=== PATIENT | female | born 1960 | race Caucasian/White ===

== ENCOUNTER 2019-04-28 07:19 | Outpatient (CLI) | payer MEDICAID, SELFPAY ==
--- NOTE | 2019-04-28 07:31 | MM_ITS ---
WS: [id number] BILATERAL DIGITAL SCREENING MAMMOGRAPHY WITH CAD CLINICAL INFORMATION: SCREENING HISTORY: Screening mammogram. No current complaints. COMPARISON: TECHNIQUE: Bilateral CC and MLO views. FINDINGS: The breasts are composed of heterogeneous fibroglandular density tissue, which can limit the detectio n of small underlying mass lesions. Palpable marker upper outer left breast. No mammographic abnormal ities in this area. LEFT DIAGNOSTIC MAMMOGRAPHY AND ULTRASOUND REQUIRED OF THE PALPABLE LUMP. Unremarkable right breast. MM/[place] [id number] IMPRESSION: BI-RADS: 0-Incomplete: Need additional imaging evaluation FOLLOW UP: Need Additional Imaging
== END 2019-04-28 07:20 | disposition home or self-care (01) ==
LOC: RADSHAW 07:23
PROVIDERS: Family Provider Internal Medicine; PCP Internal Medicine; Visit Provider Internal Medicine
DX: Z12.31 Encounter for screening mammogram for malignant neoplasm of breast (principal)
CPT/HCPCS: 77067

== ENCOUNTER 2019-05-05 12:25 | Emergency (ER) | payer MEDICAID, SELFPAY ==
[2019-05-05 12:27] VITALS: BP 139/83; PULSE 85; RESP 18; TEMP 36.7; O2SAT 98; BMI 32.6
--- NOTE | 2019-05-05 12:50 | PC.NURSE ---
Patient complaining of lower back, fuzzy headed, cough, shortness of breath, nausea, vomiting, and weakness. Patient has tenders to the left side of her abdomen.
--- NOTE | 2019-05-05 13:14 | CT_ITS ---
WS: [id number] CT HEAD NONCONTRAST HISTORY: headache, ams TECHNIQUE: Contiguous axial imaging performed through the brain in 2.5 mm imaging. Bone and soft tiss ue windows. Sagittal and coronal reformats reviewed. All CT scans at [facility] use at ast one of these dose optimization techniques: automated exposure control; mA and/or kV adjustment pe r patient size (includes targeted exams where dose is matched to clinical indication); or iterative r econstruction. DLP: 745.35 mGy.cm COMPARISON: 11/14/2016 No acute intracranial hemorrhage, midline shift or mass effect. Very mild atrophy and mild chronic ischemic disease. Remote lacunar infarct external capsule on the R IGHT. Similar to the prior study. No new infarct. Ventricles: Normal size with no hydrocephalus. No inferior displacement of the cerebellar tonsils. Paranasal sinuses: As visualized are clear. Mastoid air cells: Well pneumatized. Calvarium and scalp: Skull is intact with no soft tissue edema or swelling. CT/CT head wo con* [id number] IMPRESSION: 1. No acute intracranial hemorrhage or edema. 2. Stable mild atrophy and RIGHT lacunar infarct. 3. No sinus disease identified.
--- NOTE | 2019-05-05 13:16 | ED_ITS ---
HPI - General Adult General: Chief complaint: General Medical Stated complaint: Lower back pain, tired, ams Time Seen by Provider: 05/05/19 13:07 Source: patient Mode of arrival: ambulatory Limitations: no limitations History of Present Illness: HPI narrative: Patient was brought in today by EMS for concerns of difficulty concentrating and general malaise. 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 Patient appears chronically ill. Patient does have a history of a CVA and TIAs. Patient does not appear in pain. Associated symptoms: Reports headache(s) Review of Systems General: Reports: 10 or more systems reviewed and unremarkable except in HPI and below Neuro: Reports: headache and weakness in extremities PFSH ED PFSH: Statuses (acute, chronic, etc) shown below reflect problem list status as previously entered and may not be historically accurate Social History Smoking and tobacco status: never smoked Physical Exam Const: COMMON NORMALS: no apparent distress and oriented x3 GENERAL APPEARANCE: cooperative HENMT: COMMON NORMALS: normocephalic, external ears normal, EAC's normal, TM's normal bilaterally and external nose normal HEAD & SCALP: normal to inspecti on and normocephalic FACE & SINUS: normal facial exam NOSE: external nose normal GENERAL EAR: hearing not grossly impaired EXTERNAL EAR: Yes external ears normal EXTERNAL AUDITORY CANAL: EAC's normal TYMPANIC MEMBRANE: TM's normal bilaterally MOUTH: oral and palatal mucosa normal THROAT: posterior oropharynx normal Eye: COMMON NORMALS: PERRL and EOMs intact bilaterally PUPIL: Yes PERRL Neck/C-Spine: COMMON NORMALS: full ROM and no lymphadenopathy Lymph: LYMPHATIC: no lymphedema noted Chest: COMMONS NORMALS: inspection of chest normal and palpation of chest normal Resp: COMMON NORMALS: normal respiratory effort and clear to auscultation bilaterally AUSCULTATION: clear to auscultation bilaterally Cardio: COMMON NORMALS: regular rate and regular rhythm RATE: regular rate RHYTHM: regular rhythm GI: COMMON NORMALS: normal to inspection, nondistended, normoactive bowel sounds and non-tender : COMMON NORMALS: Yes no CVA tenderness BLADDER/KIDNEY EXAM: Yes no CVA tenderness Back/Pelvis: COMMON NORMALS: no CVA tenderness and thoracic and lumbar spine normal to inspection Extremity: COMMON NORMALS: normal to inspection GENERAL: No edema Neuro: COMMON NORMALS: oriented x3, moves all extremities and no focal motor deficits Psych: COMMON NORMALS: mental status grossly normal and cooperative Skin: COMMON NORMALS: no rashes or lesions noted GENERAL SKIN EXAM: no r ashes or lesions noted Course Vital Signs: Vital signs: Vital Signs Temperature 98.1 F 05/05/19 12:27 Pulse Rate 81 05/05/19 16:17 Respiratory Rate 18 05/05/19 16:17 Blood Pressure 140/93 05/05/19 16:17 Pulse Oximetry 99 05/05/19 16:17 MDM - General Adult MDM Narrative: Medical decision making narrative: Patient comes in today for f atigue and not thinking clearly. Exam noted no abnormalities or focal neurodeficit. DDX includes drug intoxication, adverse drug reaction, depression, Seizure, TIA, CVA. reviewed exam with patient, I feel that the patient may be depressed with possible adverse drug effect, recommended follow-up with primary care to discuss medications changes. Patient agreed to plan Lab Data: Labs: Lab Results 05/05/19 05/05/19 05/05/19 Range/Units 13:35 13:35 13:35 WBC 7.2 (4.0-10.0) 10^3/ uL RBC 4.18 (4.1-5.3) 10^6/u L Hgb 12.0 (11.5-15.3) g/dL Hct 36.6 L (37.0-47.0) % MCV 87.6 (81-99) fL MCH 28.7 (28.0-34.0) pg MCHC 32.8 (30.0-36.0) g/dL RDW 11.9 L (12.1-15.1) % Plt Count 236 (130-400) 10^3/c mm MPV 9.5 (7.4-10.4) fL Neut % (Auto) 59.3 % Lymph % (Auto) 29.9 % [place] % (Auto) 6.8 % Eos % (Auto) 3.2 % Baso % (Auto) 0.4 % Neut # (Auto) 4.3 (1.8-7.7) 10^3/u L Lymph # (Auto) 2.2 (0.8-4.8) 10^3/u L [place] # (Auto) 0.5 (0.2-0.9) 10^3/u L Eos # (Auto) 0.2 (0.0-0.8) 10^3/u L Baso # (Auto) 0.0 (0.0-0.1) 10^3/u L Nucleated RBC % (a uto) 0 % Nucleated RBCs # 0.0 /100WBC Sodium 140 (136-145) mmol/L Potassium 3.8 (3.5-5.1) mmol/L Chloride 107 (98-107) mmol/L Carbon Dioxide 24 (22-29) mmol/L Anion Gap 12.8 (5-19) BUN 9 (6-20) mg/dL Creatinine 0.8 (0.5-0.9) mg/dL GFR Calculation 73.7 L (90-130) mL/min Glucose 123 H (74-109) mg/dL Lactate 1.0 (0.5-2.2) mmol/L Calcium 9.6 (8.6-10.0) mg/Dl Magnesium 2.1 (1.7-2.3) mg/dL Total Bilirubin 0.2 (0.15-1.2) mg/dL AST 23 (0-32) U/L ALT 29 (0-33) U/L Alkaline Phosphata se 96 (35-105) IU/L Total Protein 6.3 L (6.6-8.7) g/dL Albumin 3.9 (3.5-5.2) g/dL Globulin 2.4 (1.3-4.6) g/dL Lipase 21 (13-60) U/L TSH 3.12 (0.27-4.20) uIU/ mL Urine Color Urine Appearance Urine pH Ur Specific Gravit y Urine Protein Urine Glucose (UA) Urine Ketones Urine Occult Blood Urine Nitrate Urine Bilirubin Prot Sulfosalicyli c Acd Urine Urobilinogen Ur Leukocyte [place] Urine RBC Urine WBC Ur Squamous Epith Cells Ur Transition Epit h Cell Ur Renal Epithelia l Cell Calcium Oxalate Cr ystal Uric Acid Crystals Triple Phos Mariah ls Other Crystals Amorphous Sediment Urine Bacteria Hyaline Casts Fine Granular Cast s Coarse Granular Ca sts RBC Casts Other Casts Urine Mucus Urine Trichomonas Urine Yeast Urine Sperm Ur Oval Fat Bodies Urine Opiates Scre en (Negative) ng/mL Ur Barbiturates Sc reen (Negative) ng/mL Ur Phencyclidine S crn (Negative) ng/mL Ur Amphetamines Sc reen (Negative) ng/mL U Benzodiazepines Scrn (Negative) ng/mL Urine Cocaine Scre en (Negative) ng/mL U Marijuana (THC) Screen (Negative) ng/mL 05/05/19 05/05/19 05/05/19 Range/Units 14:04 14:04 14:04 WBC (4.0-10.0) 10^3/ uL RBC (4.1-5.3) 10^6/u L Hgb (11.5-15.3) g/dL Hct (37.0-47.0) % MCV (81-99) fL MCH (28.0-34.0) pg MCHC (30.0-36.0) g/dL RDW (12.1-15.1) % Plt Count (130-400) 10^3/c mm MPV (7.4-10.4) fL Neut % (Auto) % Lymph % (Auto) % [place] % (Auto) % Eos % (Auto) % Baso % (Auto) % Neut # (Auto) (1.8-7.7) 10^3/u L Lymph # (Auto) (0.8-4.8) 10^3/u L [place] # (Auto) (0.2-0.9) 10^3/u L Eos # (Auto) (0.0-0.8) 10^3/u L Baso # (Auto) (0.0-0.1) 10^3/u L Nucleated RBC % (a uto) % Nucleated RBCs # /100WBC Sodium (136-145) mmol/L Potassium (3.5-5.1) mmol/L Chloride (98-107) mmol/L Carbon Dioxide (22-29) mmol/L Anion Gap (5-19) BUN (6-20) mg/dL Creatinine (0.5-0.9) mg/dL GFR Calculation (90-130) mL/min Glucose (74-109) mg/dL Lactate (0.5-2.2) mmol/L Calcium (8.6-10.0) mg/Dl Magnesium (1.7-2.3) mg/dL Total Bilirubin (0.15-1.2) mg/dL AST (0-32) U/L ALT (0-33) U/L Alkaline Phosphata se (35-105) IU/L Total Protein (6.6-8.7) g/dL Albumin (3.5-5.2) g/dL Globulin (1.3-4.6) g/dL Lipase (13-60) U/L TSH (0.27-4.20) uIU/ mL Urine Color Cancelled Straw Urine Appearance Cancelled Clear Urine pH Cancelled 6.0 Ur Specific Gravit y Cancelled 1.010 Urine Protein Cancelled Neg Urine Glucose (UA) Cancelled Norm Urine Ketones Cancelled Negative Urine Occult Blood Cancelled Neg Urine Nitrate Cancelled Negative Urine Bilirubin Cancelled Neg Prot Sulfosalicyli c Acd Cancelled Urine Urobilinogen Cancelled Norm Ur Leukocyte [place] Cancelled Negative Urine RBC Cancelled None Urine WBC Cancelled None Ur Squamous Epith Cells Cancelled Rare Ur Transition Epit h Cell Cancelled Ur Renal Epithelia l Cell Cancelled Calcium Oxalate Cr ystal Cancelled Uric Acid Crystals Cancelled Triple Phos Mariah ls Cancelled Other Crystals Cancelled Amorphous Sediment Cancelled Urine Bacteria Cancelled None Hyaline Casts Cancelled Fine Granular Cast s Cancelled Coarse Granular Ca sts Cancelled RBC Casts Cancelled Other Casts Cancelled Urine Mucus Cancelled Urine Trichomonas Cancelled Urine Yeast Cancelled Urine Sperm Cancelled Ur Oval Fat Bodies Cancelled Urine Opiates Scre en Negative (Negative) ng/mL Ur Barbiturates Sc reen Negative (Negative) ng/mL Ur Phencyclidine S crn Negative (Negative) ng/mL Ur Amphetamines Sc reen Negative (Negative) ng/mL U Benzodiazepines Scrn Positive H (Negative) ng/mL Urine Cocaine Scre en Negative (Negative) ng/mL U Marijuana (THC) Screen Negative (Negative) ng/mL Discharge Plan Discharge Patient Disposition: Home, Self-Care Clinical Impression: Chronic fatigue and malaise Headache Qualifiers: Headache type: unspecified Headache chronicity pattern: chronic headache Intractability: not intractable Qualified Code(s): R51 - Headache Condition: Stable Prescriptions: No Action Prozac 40 mg Capsule 40 mg PO DAILY RF: 0 cyclobenzaprine 10 mg Tablet 10 mg PO TID RF: 0 Tylenol 325 mg Tablet 325 mg PO QID RF: 0 Imodium A-D 2 mg Capsule 2 mg PO PRN PRN (Reason: Diarrhea) RF: 0 Imitrex 100 mg Tablet 100 mg PO Q2H RF: 0 Plavix 75 mg Tablet 75 mg PO DAILY RF: 0 omeprazole 40 mg Capsule,Delayed Release(Dr/Ec) 40 mg PO BID RF: 0 levothyroxine 50 mcg Tablet 50 mcg PO DAILY RF: 0 trazodone 150 mg Tablet 150 mg PO DAILY RF: 0 Pepto-Bismol 262 mg/15 mL Suspension 524 mg PO Q1H PRN (Reason: Stomach Upset) RF: 0 Colace 100 mg Capsule 100 mg PO BID RF: 0 Singulair 10 mg Tablet 10 mg PO DAILY RF: 0 ProAir HFA 90 mcg/actuation Hfa Aerosol Inhaler INHALATION BID RF: 0 Topamax 100 mg Tablet 100 mg PO BID RF: 0 fluticasone propionate 50 mcg/actuation Lily,Suspension 1 spray INTRANASAL DAILY RF: 0 oxycodone 5 mg Tablet 5 mg PO Q4H PRN (Reason: Pain) RF: 0 Vitamin D3 1,000 unit Capsule 1,000 unit PO DAILY RF: 0 rosuvastatin 10 mg Tablet 10 mg PO DAILY RF: 0 duloxetine 60 mg Capsule,Delayed Release(Dr/Ec) 120 mg PO DAILY RF: 0 aripiprazole 2 mg Tablet 2 mg PO DAILY RF: 0 Delsym Cough-Cold NightTime 12.5-5-325 mg/10 mL Liquid 10 ml PO PRN PRN (Reason: Cough) RF: 0 potassium chloride 20 mEq Tablet Extended Release 20 meq PO TID RF: 0 RF: 0 Discharge Orders: Discharge Order (Routine); Ordered 05/05/19 Ordered By: Julian Caba Referrals: Susi Pratt MD [Primary Care Provider] - Discharge Diet: Usual diet Discharge Activity: Limit activity as instructed Activity Restrictions/Additional Instructions: Home and rest Activity as tolerated Follow-up with Dr. Pratt to review medications, and consider further treatment and evaluation Return to ER for high fever or new concerns Discharge Date/Time: 05/05/19 16:20 Coding Level of Care Code ED Flow Trader for Carol Lyles Exam Problem Focused
[2019-05-05 13:40] LABS: Basophils % 0.4 %; Eosinophils # 0.2 10^3/uL (0.0-0.8); Eosinophils % 3.2 %; Hematocrit 36.6 % (37.0-47.0); Lymphocytes # 2.2 10^3/uL (0.8-4.8); Lymphocytes % 29.9 %; Mean Corpuscular HGB Conc 32.8 g/dL (30.0-36.0); Mean Corpuscular Hemoglobin 28.7 pg (28.0-34.0); Mean Corpuscular Volume 87.6 fL (81-99); Mean Platelet Volume 9.5 fL (7.4-10.4); Monocytes # 0.5 10^3/uL (0.2-0.9); Monocytes % 6.8 %; Neutrophils # 4.3 10^3/uL (1.8-7.7); Neutrophils % 59.3 %; Nucleated Red Blood Cells % 0 %; Platelet Count 236 10^3/cmm (130-400); Red Blood Count 4.18 10^6/uL (4.1-5.3); Red Cell Distribution Width 11.9 % (12.1-15.1); White Blood Count 7.2 10^3/uL (4.0-10.0)
[2019-05-05 14:06] LABS: Alanine Aminotransferase 29 U/L (0-33); Albumin Level 3.9 g/dL (3.5-5.2); Alkaline Phosphatase 96 IU/L (35-105); Anion Gap 12.8 (5-19); Aspartate Amino Transferase 23 U/L (0-32); Blood Urea Nitrogen 9 mg/dL (6-20); Calcium 9.6 mg/Dl (8.6-10.0); Carbon Dioxide 24 mmol/L (22-29); Chloride 107 mmol/L (98-107); Globulin 2.4 g/dL (1.3-4.6); Glomerular Filtration Rate 73.7 mL/min (90-130); Glucose 123 mg/dL (74-109); Lipase 21 U/L (13-60); Magnesium 2.1 mg/dL (1.7-2.3); Potassium 3.8 mmol/L (3.5-5.1); Sodium 140 mmol/L (136-145); Thyroid Stimulating Hormone 3.12 uIU/mL (0.27-4.20); Total Bilirubin 0.2 mg/dL (0.15-1.2); Total Protein 6.3 g/dL (6.6-8.7)
[2019-05-05 14:27] LABS: Amphetamines Screen Urine Negative (Negative); Barbiturates Screen Urine Negative (Negative); Benzodiazepines Screen Urine Positive (Negative); Cocaine Screen Urine Negative (Negative); Opiate Screen Urine Negative (Negative); PCP Screen Urine Negative (Negative); THC Screen Urine Negative (Negative)
[2019-05-05 14:51] LABS: Add Urine Culture? No; Bilirubin Urine Neg (NEGATIVE); Blood Urine Neg (Negative); Glucose Urine UA Norm (Normal); Ketones Urine Negative (Negative); Leukocyte Esterase Urine Negative (Negative); Nitrate Urine Negative (Negative); Protein Urine Neg (Negative); Squamous Epithelial Cell Urine RARE (0-5); Urine Appearance Clear (CLEAR); Urine Color Straw (Yellow); Urobilinogen Urine Norm (Negative)
[2019-05-05 15:36] VITALS: BP 149/94; PULSE 80; RESP 18; O2SAT 99
[2019-05-05 16:17] VITALS: BP 140/93; PULSE 81; RESP 18; O2SAT 99
== END 2019-05-05 16:20 | disposition home or self-care (01) ==
PROVIDERS: Emergency Provider Nurse Practitioner Family; Family Provider Internal Medicine; PCP Internal Medicine
DX: R53.83 Other fatigue (principal); R53.81 Other malaise; R51 Headache; Z79.02 Long term (current) use of antithrombotics/antiplatelets
CPT/HCPCS: 36415; 70450; 80053; 80307; 81001; 83605; 83690; 83735; 84443; 85025; 99282; A9270

== ENCOUNTER 2019-06-30 09:50 | Outpatient (CLI) | payer MEDICAID, SELFPAY ==
--- NOTE | 2019-06-30 10:03 | US_ITS ---
WS: [id number] LEFT DIGITAL MAMMOGRAPHY WITH CAD CLINICAL INFORMATION: ABNORMAL MAMMOGRAM HISTORY: Left breast lump COMPARISON: None. TECHNIQUE: 3 views of the left breast were obtained. FINDINGS: Scattered fibroglandular densities of the left breast. No mammographic abnormalities in the area of p alpable concern. Ultrasound is pending. ULTRASOUND BREAST LEFT TECHNIQUE: Ultrasound left breast focused area of concern. CLINICAL INFORMATION: ABNORMAL MAMMOGRAM COMPARISON: None. FINDINGS: Ultrasound left breast 12:00 position 2 cm from the nipple. Tiny 2.9 x 1.6 x 3.1 mm cyst at the 12:00 position. No other suspicious abnormalities. No lesions to target for biopsy. US/US breast LT limited* [id number] IMPRESSION: BI-RADS: 2-Benign FOLLOW UP: 1 Year Follow-up Recommend return to annual diagnostic mammography.
== END 2019-06-30 09:51 | disposition home or self-care (01) ==
PROVIDERS: Family Provider Internal Medicine; PCP Internal Medicine; Visit Provider Nurse Practitioner Family
DX: N63.20 Unspecified lump in the left breast, unspecified quadrant (principal); R92.8 Other abnormal and inconclusive findings on diagnostic imaging of breast
CPT/HCPCS: 76642; 77065

== ENCOUNTER → 2019-07-08 07:42 | Outpatient (BNVA) | payer MEDICAID, SELFPAY | PROVIDERS: Family Provider Internal Medicine; PCP Internal Medicine; Visit Provider Nurse Practitioner | DX: F33.1 Major depressive disorder, recurrent, moderate (principal) | CPT/HCPCS: 99214 ==

== ENCOUNTER → 2019-08-11 07:27 | Outpatient (BNVA) | payer MEDICAID, SELFPAY | PROVIDERS: Family Provider Internal Medicine; PCP Internal Medicine; Visit Provider Nurse Practitioner | DX: F33.1 Major depressive disorder, recurrent, moderate (principal) | CPT/HCPCS: 99213 ==

== ENCOUNTER → 2019-09-25 09:34 | Outpatient (BNVA) | payer MEDICAID, SELFPAY | PROVIDERS: Family Provider Internal Medicine; PCP Internal Medicine; Visit Provider Specialist | DX: F33.1 Major depressive disorder, recurrent, moderate (principal); G43.711 Chronic migraine without aura, intractable, with status migrainosus | CPT/HCPCS: 64615; J0585 ==

== ENCOUNTER 2019-10-13 18:02 | Observation (INO) | payer MEDICAID, SELFPAY ==
[2019-10-13 18:05] VITALS: BP 195/121; PULSE 144; RESP 18; O2SAT 98; BMI 35.4
--- NOTE | 2019-10-13 18:05 | ECG_ITS ---
[facility] Test Date: 2019-10-13 Pat Name: Maris Mcdermott Department: Room: Gender: Female [employer]: : [id number] Requested By: Angle Mathis Order Number: [id number] John MD: Mela Daly M.D. Measurements Intervals [place] Rate: 130 P: 51 [place]: 157 QRS: 52 QRSD: 85 T: 47 QT: 374 QTc: 551 Interpretive Statements SINUS TACHYCARDIA LOW QRS VOLTAGE IN PRECORDIAL LEADS [QRS DEFLECTION < 1.0 mV IN CHEST LEADS] NONSPECIFIC T-WAVE ABNORMALITY ABNORMAL RHYTHM ECG Compared to ECG 05/16/2018 05:46:10 T-wave abnormality now present Sinus rhythm no longer present Electronically Signed On 10-14-2019 23:31:51 CDT by Mela Daly M.D. [email or web address]
--- NOTE | 2019-10-13 18:06 | XR_ITS ---
WS: [id number] PORTABLE CHEST HISTORY: chest pain COMPARISON: 05/15/2018 Lungs are clear and well expanded. No pleural effusion or pneumothorax. Cardiac size: Normal. Mediastinum/Aorta: Normal mediastinum. No osseous abnormality seen. XR/XR chest 1V portable [id number] IMPRESSION: Unremarkable portable chest.
--- NOTE | 2019-10-13 18:26 | ED_ITS ---
HPI - Chest Pain General: Chief Complaint: Chest Pain Stated Complaint: sent over by doctor/ high hr Time Seen by Provider: 10/13/19 18:05 Source: patient and family (friend) Mode of arrival: ambulatory Limitations: no limitations History of Present Illness: HPI narrative: Patient is a very nice 59-year-old female who presents to ED today along with a family friend after they were referred here from their PCP Dr. Pratt. Patient tells me earlier today she began having some right arm cramping so decided to take her blood pressure and heart rate. She states blood pressure at that time was 226/134 and heart rate was in the 130s so she contacted her PCP who told her they would see her in the office for evaluation. When she arrived at their office vital signs continued to remain unstable so sent patient to the ED for further evaluation. Patient reports some very mild chest pressure that she rates at a 1/10. She states this pain is located substernally. She does complain of shortness of breath that she noticed today. She reportedly became very short of breath going down a flight of stairs which she states is abnormal for her. She states her shortness of breath is worse again with any form of exertion and lying flat. She complains of some mild bilateral lower extremity swelling that she has noticed over the past week. Patient has not had a cough, URI symptoms, or fever. Family friend states patient has been having increased stress lately related to having to care for her boyfriend's mother. PMH is significant for a history of atrial fibrillation, HTN, DM, hypothyroidism. Patient does currently take Eliquis. She believes she had a stress test and/or echocardiogram approximately 2 to 3 years ago related to the atrial fibrillation (chart review shows stress test in 04/2018 which was normal). MD complaint: chest pain and other (SOB, high HR, elevated BP) Prior episodes: Yes Pain location: substernal Pain radiation: right arm Relieving factors: nothing Exacerbating factors: exertion and supine Associated symptoms: Reports dyspnea; Deny abdominal pain, fever(s), nausea, palpitations, syncope or vomiting Treatment prior to arrival: none Risk Factors: Coronary artery disease risk factors: diabetes and hypertension Related Data: On Oral Contraceptives: No Review of Systems General: Reports: 10 or more systems reviewed and unremarkable except in HPI and below Const: Denies: fever(s), chills, body aches, change in appetite, fatigue or malaise Eyes: Denies: change in vision, blurry vision, photophobia, floaters or seeing flashes Card: Reports: chest pain, swelling of feet/ankles and orthopnea; Denies: palpitations, irregular heart rhythm, edema, lightheadedness, syncope, pre-syncope, dyspnea on exertion, leg pain with exertion or acrocyanosis Resp: Reports: dyspnea; Denies: productive cough, non-productive cough, wheezing, stridor, pain on inspiration, change in phlegm color, hemoptysis or chest congestion GI: Denies: abdominal pain, nausea, vomiting, heartburn or diarrhea : Denies: flank pain, difficulty voiding, dysuria, urinary frequency, urinary urgency or urinary hesitancy Musc: Denies: neck pain, back pain, extremity pain, extremity swelling, joint pain or joint swelling Skin/Breast: Denies: rash Neuro: Denies: headache(s), numbness in extremities, weakness in extremities or sensory changes PFSH ED PFSH: Medical History (Updated 10/14/19 @ 00:11 by MARY Saul) Chronic migraine without aura, intractable, with status migrainosus CVA (cerebrovascular accident) Diabetes GERD (gastroesophageal reflux disease) History of atrial fibrillation Hypertension Hypothyroidism Major depressive disorder, recurrent, moderate Migraine She has tried beta-blockers antidepressant anticonvulsant NSAIDs and Botox Peripheral vascular disease Status post placement of implantable loop recorder 2009 Surgical History (Updated 10/13/19 @ 23:51 by Fer Be MD) H/O colonoscopy H/O esophagogastroduodenoscopy S/P Botox injection Family History (Updated 10/13/19 @ 23:46 by Fer Be MD) Other CAD (coronary artery disease) Hypertension Social History (Updated 10/13/19 @ 23:46 by Fer Be MD) Smoking and tobacco status: never smoked Alcohol intake: never Substance/Drug Use: never Household members: family Housing: House Physical Exam Const: COMMON NORMALS: no acute distress, patient oriented x3, no limitations and alert ORIENTATION/CONSCIOUSNESS: Yes oriented to person, Yes oriented to place and Yes oriented to time HENMT: COMMON NORMALS: normocephalic and atraumatic HEAD & SCALP: normocephalic and atraumatic Chest: COMMONS NORMALS: normal inspection of the chest and normal palpation of entire chest wall Resp: COMMON NORMALS: normal respiratory effort and clear to auscultation bilaterally EFFORT & INSPECTION: Yes able to speak in complete sentences AUSCULTATION: clear to auscultation bilaterally Cardio: COMMON NORMALS: regular rhythm RATE: tachycardic RHYTHM: regular rhythm GI: COMMON NORMALS: Normal to inspection, nondistended, normoactive bowel sounds present, Soft to palpation, non-tender, No hepatosplenomegaly present and no masses PALPATION: Yes Soft to palpation and Yes No hepatosplenomegaly present Extremity: COMMON NORMALS: normal to inspection, capillary refill normal, no clubbing, cyanosis or edema (very mild non-pitting edema) and no calf tenderness Neuro: PARDEEP COMA SCALE: document GCS findings Pardeep coma scale eye opening: Spontaneous Pardeep coma scale verbal response: Orientated [place] coma scale motor response: Obey commands Pardeep coma scale total score: 15 COMMON NORMALS: patient oriented x3 SENSORIUM/ORIENTATION: Yes alert, Yes oriented to person, Yes oriented to place and Yes oriented to time Skin: COMMON NORMALS: no rashes or lesions noted GENERAL SKIN EXAM: no rashes or lesions noted Course Consultations: Consultation #1: Dr. Be-admit pt to obs Vital Signs: Vital signs: Vital Signs Pulse Rate 116 H 10/13/19 19:20 Respiratory Rate 22 H 10/13/19 19:20 Blood Pressure 161/111 10/13/19 19:55 Pulse Oximetry 95 10/13/19 19:20 MDM - Chest Pain MDM Narrative: Medical decision making narrative: Spoke to Dr. Ortega who agrees with evaluation and need for admission. I have spoken to Dr. Be who will admit patient. Lab Data: Labs: Lab Results 10/13/19 10/13/19 10/13/19 Range/Units 17:29 18:57 18:57 WBC 7.1 (4.0-10.0) 10^3/ uL RBC 4.57 (4.1-5.3) 10^6/u L Hgb 13.4 (11.5-15.3) g/dL Hct 40.8 (37.0-47.0) % MCV 89.3 (81-99) fL MCH 29.3 (28.0-34.0) pg MCHC 32.8 (30.0-36.0) g/dL RDW 11.9 L (12.1-15.1) % Plt Count 256 (130-400) 10^3/c mm MPV 9.6 (7.4-10.4) fL Neut % (Auto) 58.1 % Lymph % (Auto) 31.2 % [place] % (Auto) 7.5 % Eos % (Auto) 1.7 % Baso % (Auto) 0.9 % Neut # (Auto) 4.1 (1.8-7.7) 10^3/u L Lymph # (Auto) 2.2 (0.8-4.8) 10^3/u L [place] # (Auto) 0.5 (0.2-0.9) 10^3/u L Eos # (Auto) 0.1 (0.0-0.8) 10^3/u L Baso # (Auto) 0.1 (0.0-0.1) 10^3/u L Nucleated RBC % (a uto) 0 % Nucleated RBCs # 0.0 /100WBC PT (10.5-13.3) SECO NDS INR (0.8-1.2) APTT (23.9-36.7) SECO NDS Sodium 139 (136-145) mmol/L Potassium 3.7 (3.5-5.1) mmol/L Chloride 101 (98-107) mmol/L Carbon Dioxide 25 (22-29) mmol/L Anion Gap 16.7 (5-19) BUN 7 (6-20) mg/dL Creatinine 0.7 (0.5-0.9) mg/dL GFR Calculation 85.6 L (90-130) mL/min Glucose 134 H (65-115) mg/dL Calculated Osmolal ity 286 (285-295) mOsm/k g Lactate (0.5-2.2) mmol/L Calcium 9.5 (8.5-10.5) mg/dL Total Bilirubin 0.4 (0.15-1.2) mg/dL AST 60 H (0-32) U/L ALT 86 H (0-33) U/L Alkaline Phosphata se 92 (35-105) IU/L Troponin T Baselin e (0-10) ng/L Troponin T 120 Min pierre (0-10) ng/L Delta Troponin T (0-10) ABS# NT-Pro-B Natriuret Pep 7 (0-125) pg/mL Total Protein 7.0 (6.6-8.7) g/dL Albumin 4.5 (3.5-5.2) g/dL Globulin 2.5 (1.3-4.6) g/dL TSH 2.12 (0.27-4.20) uIU/ mL Urine Color Yellow (Yellow) Urine Appearance Sl cloudy A (CLEAR) Urine pH 5 (5-7) Ur Specific Gravit y 1.005 (1.005-1.030) Urine Protein Neg (Negative) Urine Glucose (UA) Norm (Normal) Urine Ketones Negative (Negative) Urine Blood Neg (Negative) Urine Nitrate Negative (Negative) Urine Bilirubin Neg (NEGATIVE) Urine Urobilinogen Neg (Negative) mg/dL Ur Leukocyte [place] ase 1+ H (Negative) Urine RBC None (0-2) /hpf Urine WBC 10-15 H (0-5) /hpf Ur Squamous Epith Cells 15-25 H (0-5) Urine Bacteria 1+ H (NONE) Urine Opiates Scre en (Negative) ng/mL Ur Barbiturates Sc reen (Negative) ng/mL Ur Phencyclidine S crn (Negative) ng/mL Ur Amphetamines Sc reen (Negative) ng/mL U Benzodiazepines Scrn (Negative) ng/mL Urine Cocaine Scre en (Negative) ng/mL U Marijuana (THC) Screen (Negative) ng/mL 10/13/19 10/13/19 10/13/19 Range/Units 18:57 18:57 18:57 WBC (4.0-10.0) 10^3/ uL RBC (4.1-5.3) 10^6/u L Hgb (11.5-15.3) g/dL Hct (37.0-47.0) % MCV (81-99) fL MCH (28.0-34.0) pg MCHC (30.0-36.0) g/dL RDW (12.1-15.1) % Plt Count (130-400) 10^3/c mm MPV (7.4-10.4) fL Neut % (Auto) % Lymph % (Auto) % [place] % (Auto) % Eos % (Auto) % Baso % (Auto) % Neut # (Auto) (1.8-7.7) 10^3/u L Lymph # (Auto) (0.8-4.8) 10^3/u L [place] # (Auto) (0.2-0.9) 10^3/u L Eos # (Auto) (0.0-0.8) 10^3/u L Baso # (Auto) (0.0-0.1) 10^3/u L Nucleated RBC % (a uto) % Nucleated RBCs # /100WBC PT 14.20 H (10.5-13.3) SECO NDS INR 1.06 (0.8-1.2) APTT 35.8 (23.9-36.7) SECO NDS Sodium (136-145) mmol/L Potassium (3.5-5.1) mmol/L Chloride (98-107) mmol/L Carbon Dioxide (22-29) mmol/L Anion Gap (5-19) BUN (6-20) mg/dL Creatinine (0.5-0.9) mg/dL GFR Calculation (90-130) mL/min Glucose (65-115) mg/dL Calculated Osmolal ity (285-295) mOsm/k g Lactate 1.3 (0.5-2.2) mmol/L Calcium (8.5-10.5) mg/dL Total Bilirubin (0.15-1.2) mg/dL AST (0-32) U/L ALT (0-33) U/L Alkaline Phosphata se (35-105) IU/L Troponin T Baselin e 7 (0-10) ng/L Troponin T 120 Min pierre (0-10) ng/L Delta Troponin T (0-10) ABS# NT-Pro-B Natriuret Pep (0-125) pg/mL Total Protein (6.6-8.7) g/dL Albumin (3.5-5.2) g/dL Globulin (1.3-4.6) g/dL TSH (0.27-4.20) uIU/ mL Urine Color (Yellow) Urine Appearance (CLEAR) Urine pH (5-7) Ur Specific Gravit y (1.005-1.030) Urine Protein (Negative) Urine Glucose (UA) (Normal) Urine Ketones (Negative) Urine Blood (Negative) Urine Nitrate (Negative) Urine Bilirubin (NEGATIVE) Urine Urobilinogen (Negative) mg/dL Ur Leukocyte [place] ase (Negative) Urine RBC (0-2) /hpf Urine WBC (0-5) /hpf Ur Squamous Epith Cells (0-5) Urine Bacteria (NONE) Urine Opiates Scre en (Negative) ng/mL Ur Barbiturates Sc reen (Negative) ng/mL Ur Phencyclidine S crn (Negative) ng/mL Ur Amphetamines Sc reen (Negative) ng/mL U Benzodiazepines Scrn (Negative) ng/mL Urine Cocaine Scre en (Negative) ng/mL U Marijuana (THC) Screen (Negative) ng/mL 10/13/19 10/13/19 Range/Units 19:17 20:50 WBC (4.0-10.0) 10^3/ uL RBC (4.1-5.3) 10^6/u L Hgb (11.5-15.3) g/dL Hct (37.0-47.0) % MCV (81-99) fL MCH (28.0-34.0) pg MCHC (30.0-36.0) g/dL RDW (12.1-15.1) % Plt Count (130-400) 10^3/c mm MPV (7.4-10.4) fL Neut % (Auto) % Lymph % (Auto) % [place] % (Auto) % Eos % (Auto) % Baso % (Auto) % Neut # (Auto) (1.8-7.7) 10^3/u L Lymph # (Auto) (0.8-4.8) 10^3/u L [place] # (Auto) (0.2-0.9) 10^3/u L Eos # (Auto) (0.0-0.8) 10^3/u L Baso # (Auto) (0.0-0.1) 10^3/u L Nucleated RBC % (a uto) % Nucleated RBCs # /100WBC PT (10.5-13.3) SECO NDS INR (0.8-1.2) APTT (23.9-36.7) SECO NDS Sodium (136-145) mmol/L Potassium (3.5-5.1) mmol/L Chloride (98-107) mmol/L Carbon Dioxide (22-29) mmol/L Anion Gap (5-19) BUN (6-20) mg/dL Creatinine (0.5-0.9) mg/dL GFR Calculation (90-130) mL/min Glucose (65-115) mg/dL Calculated Osmolal ity (285-295) mOsm/k g Lactate (0.5-2.2) mmol/L Calcium (8.5-10.5) mg/dL Total Bilirubin (0.15-1.2) mg/dL AST (0-32) U/L ALT (0-33) U/L Alkaline Phosphata se (35-105) IU/L Troponin T Baselin e (0-10) ng/L Troponin T 120 Min pierre 7.29 (0-10) ng/L Delta Troponin T 0.29 (0-10) ABS# NT-Pro-B Natriuret Pep (0-125) pg/mL Total Protein (6.6-8.7) g/dL Albumin (3.5-5.2) g/dL Globulin (1.3-4.6) g/dL TSH (0.27-4.20) uIU/ mL Urine Color (Yellow) Urine Appearance (CLEAR) Urine pH (5-7) Ur Specific Gravit y (1.005-1.030) Urine Protein (Negative) Urine Glucose (UA) (Normal) Urine Ketones (Negative) Urine Blood (Negative) Urine Nitrate (Negative) Urine Bilirubin (NEGATIVE) Urine Urobilinogen (Negative) mg/dL Ur Leukocyte [place] ase (Negative) Urine RBC (0-2) /hpf Urine WBC (0-5) /hpf Ur Squamous Epith Cells (0-5) Urine Bacteria (NONE) Urine Opiates Scre en Negative (Negative) ng/mL Ur Barbiturates Sc reen Negative (Negative) ng/mL Ur Phencyclidine S crn Negative (Negative) ng/mL Ur Amphetamines Sc reen Negative (Negative) ng/mL U Benzodiazepines Scrn Positive H (Negative) ng/mL Urine Cocaine Scre en Negative (Negative) ng/mL U Marijuana (THC) Screen Negative (Negative) ng/mL Imaging Data^: CTA Chest: Radiologist's impression: [facility] [address] [place] [address] CT Scan Report Signed Patient: Maris Mcdermott Unit #: [id number] : 1960 Age/Sex: 59 / F ADM Date: 10/13/19 Loc: ER Room/Bed: Attending Dr: Ordering Provider/Ordering MD: Angle Mathis Date of Service: 10/13/19 Procedure(s): CT angio chest PE protcl [id number] Accession Number(s): [id number] Report Number: [id number] PROCEDURE INFORMATION: Exam: CT Angiography Chest With Contrast Exam date and time: 10/13/2019 8:15 PM Age: 59 years old Clinical indication: Shortness of breath; Additional info: SOB, tachycardia TECHNIQUE: Imaging protocol: Computed tomographic angiography of the chest with intravenous contrast. 3D rendering: MIP and/or 3D reconstructed images were created by the technologist. Radiation optimization: All CT scans at this facility use at least one of these dose optimization techniques: automated exposure control; mA and/or kV adjustment per patient size (includes targeted exams where dose is matched to clinical indication); or iterative reconstruction. Contrast material: OMNI 350; Contrast volume: 48 ml; Contrast route: INTRAVENOUS (IV); COMPARISON: No relevant prior studies available. RADIATION DOSE METRICS: Total DLP (mGy-cm): 551.98 FINDINGS: Pulmonary arteries: No visible pulmonary embolism/pulmonary arterial thrombus. Aorta: The thoracic aorta is nonaneurysmal. No visible intimal flap or dissection. Thyroid: Left thyroidectomy. Lungs: No visible active interstitial or alveolar airspace disease. Pleural space: Unremarkable. No pneumothorax. No pleural effusion. Heart: Unremarkable. No cardiomegaly. No pericardial effusion. Mediastinal space: Evidence of antecedent granulomatous disease with calcified mediastinal and hilar complexes. Lymph nodes: Unremarkable. No enlarged lymph nodes. Liver: Marked diffuse fatty infiltration of the liver with hepatomegaly. Gallbladder and bile ducts: Status post cholecystectomy. Spleen: Splenomegaly. Bones/joints: No visible active osseous pathology. Soft tissues: Unremarkable. Other findings: Heavy body habitus. CT/CT angio chest PE protcl [id number] IMPRESSION: 1. No visible pulmonary embolism/pulmonary arterial thrombus. 2. Antecedent granulomatous disease. 3. Marked diffuse fatty infiltration of the liver with hepatomegaly. 4. Splenomegaly. 5. Status post cholecystectomy. 6. Status post left thyroidectomy. Radiation Dose CTDIVOL = (mGy): DLP = 551.98 (mGy-cm) Dictated By: Eric Guillory Signed By: Eric Guillory Signed Date/Time: 10/13/192117 DD/ 16 CXR: My impression: NAD; no changes from previous film Discharge Plan Discharge Patient Disposition: Placed in Observation Admit Provider: Fer Be Clinical Impression: Hypertensive urgency, Tachycardia Condition: Stable Coding Level of Care Code ED Filenet P8 Developer for Chg Fwd Exam Comprehensive
[2019-10-13] MEDS: metoprolol tartrate 1 mg/1 mL SDV 5 mL 5 MG IV (18:37)
[2019-10-13 19:15] LABS: Basophils # 0.1 10^3/uL (0.0-0.1); Basophils % 0.9 %; Eosinophils # 0.1 10^3/uL (0.0-0.8); Eosinophils % 1.7 %; Hematocrit 40.8 % (37.0-47.0); Hemoglobin 13.4 g/dL (11.5-15.3); Lymphocytes # 2.2 10^3/uL (0.8-4.8); Lymphocytes % 31.2 %; Mean Corpuscular HGB Conc 32.8 g/dL (30.0-36.0); Mean Corpuscular Hemoglobin 29.3 pg (28.0-34.0); Mean Corpuscular Volume 89.3 fL (81-99); Mean Platelet Volume 9.6 fL (7.4-10.4); Monocytes # 0.5 10^3/uL (0.2-0.9); Monocytes % 7.5 %; Neutrophils # 4.1 10^3/uL (1.8-7.7); Neutrophils % 58.1 %; Nucleated Red Blood Cells % 0 %; Platelet Count 256 10^3/cmm (130-400); Red Blood Count 4.57 10^6/uL (4.1-5.3); Red Cell Distribution Width 11.9 % (12.1-15.1); White Blood Count 7.1 10^3/uL (4.0-10.0)
[2019-10-13 19:20] VITALS: BP 167/113; PULSE 116; RESP 22; O2SAT 95
[2019-10-13 19:31] LABS: Lactate (Lactic Acid level) 1.3 mmol/L (0.5-2.2)
[2019-10-13 19:40] LABS: Troponin(5th) Baseline 7 ng/L (0-10)
[2019-10-13 19:41] LABS: Add Urine Microscopic? YES; Bilirubin Urine Neg (NEGATIVE); Blood Urine Neg (Negative); Glucose Urine UA Norm (Normal); Ketones Urine Negative (Negative); Leukocyte Esterase Urine 1+ (Negative); Nitrate Urine Negative (Negative); Protein Urine Neg (Negative); Specific Gravity, Urine 1.005 (1.005-1.030); Urine Color Yellow (Yellow); Urobilinogen Urine Neg (Negative); pH Urine 5 (5-7)
[2019-10-13 19:46] LABS: Alanine Aminotransferase 86 U/L (0-33); Albumin Level 4.5 g/dL (3.5-5.2); Alkaline Phosphatase 92 IU/L (35-105); Anion Gap 16.7 (5-19); Aspartate Amino Transferase 60 U/L (0-32); Blood Urea Nitrogen 7 mg/dL (6-20); Calcium 9.5 mg/dL (8.5-10.5); Carbon Dioxide 25 mmol/L (22-29); Chloride 101 mmol/L (98-107); Globulin 2.5 g/dL (1.3-4.6); Glomerular Filtration Rate 85.6 mL/min (90-130); Glucose 134 mg/dL (65-115); NT Pro B Type Natriuretic Pept 7 pg/mL (0-125); Osmolality Calculated 286 mOsm/kg (285-295); Potassium 3.7 mmol/L (3.5-5.1); Sodium 139 mmol/L (136-145); Thyroid Stimulating Hormone 2.12 uIU/mL (0.27-4.20); Total Bilirubin 0.4 mg/dL (0.15-1.2)
[2019-10-13 19:55] VITALS: BP 161/111
[2019-10-13] MEDS: cloNIDine 0.1 mg Tablet PO (19:55)
--- NOTE | 2019-10-13 20:05 | ECG_ITS ---
[facility] Test Date: 2019-10-13 Pat Name: Maris Mcdermott Department: Room: Gender: Female Voice Intercept Technician: : 1960 Requested By: Angle Mathis Order Number: [id number] John MD: Mela Daly M.D. Measurements Intervals [place] Rate: 115 P: 53 IA: 155 QRS: 36 QRSD: 77 T: 46 QT: 428 QTc: 592 Interpretive Statements SINUS TACHYCARDIA LOW QRS VOLTAGE IN PRECORDIAL LEADS [QRS DEFLECTION < 1.0 mV IN CHEST LEADS] NONSPECIFIC T-WAVE ABNORMALITY ABNORMAL RHYTHM ECG Compared to ECG 05/16/2018 05:46:10 T-wave abnormality now present Sinus rhythm no longer present Electronically Signed On 10-15-2019 0:02:50 CDT by Mela Daly M.D. [id number]
[2019-10-13 20:15] LABS: Add Urine Culture? No; Bacteria Urine 1+; Squamous Epithelial Cell Urine 15-25 (0-5)
[2019-10-13 20:31] LABS: Amphetamines Screen Urine Negative (Negative); Barbiturates Screen Urine Negative (Negative); Benzodiazepines Screen Urine Positive (Negative); Cocaine Screen Urine Negative (Negative); Opiate Screen Urine Negative (Negative); PCP Screen Urine Negative (Negative); THC Screen Urine Negative (Negative)
[2019-10-13 20:39] LABS: INR 1.06 (0.8-1.2)
[2019-10-13 20:40] LABS: Partial Thromboplastin Time 35.8 SECONDS (23.9-36.7)
[2019-10-13] MEDS: iohexol 350 mg/mL 100 mL Btl IV (20:57)
[2019-10-13 21:38] LABS: Troponin 5 2HR 7.29 ng/L (0-10); Troponin 5 2HR Delta 0.29 ABS# (0-10)
[2019-10-13] MEDS: sodium chloride 0.9% 1,000 ML 999 ML IV (23:04)
[2019-10-13] MEDS: hyDRALAzine 20 mg/mL INJ 1 mL 10 MG IVP (23:28)
--- NOTE | 2019-10-13 23:29 | PM.HP ---
Providers/Chief Complaint Primary Care Provider: Susi Pratt MD Chief Complaint: sent over by doctor/ high hr History of Present Illness Maris Mcdermott is a 59 year old female who carries history of intractable migraine, hypertension, hypothyroidism, atrial fibrillation, chronic anticoagulation, came in after being referred from PCP Dr. Pratt for hypertension and tachycardia. 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 About 2 days ago she ran out of metoprolol. He started experiencing right arm numbness and tingling around 2 days ago, when she checked her blood pressure it was 226/134 and heart rate was ranging between 1 20-1 30s. PCP asked her to come to the office for further evaluation. She had similar findings there and was asked to go to the ER for further evaluation and management. She is endorsing resting tremors which she attributes to anxiety, she does not carry any history of Parkinson's, she denies taking extra dose of levothyroxine. She denies cerebellar stroke. She is endorsing worsening of tremors due to anxiety, she is also noticing gait disturbance, sometimes she uses wall support to ambulate in her house, no recent falls. She does not smoke or use any recreational drugs. She is also noticing dyspnea on exertion, denies orthopnea PND Diagnostics in the ER revealed normal blood work, resistant hypertension, she received clonidine, hydralazine metoprolol, her blood pressure stayed high, diastolic 112 mmHg and heart rate ranging between 1 20-1 40s Patient is denying any chest She has visible coarse tremors at rest and active movement Bilateral dilated pupils Flushed skin Drug screen negative TSH normal EKG showing sinus tachycardia with prolonged QTC CTA negative for PE Review of Systems Const: Reports: chills, body aches and fatigue; Denies: fever(s) Eyes: Reports: eye redness and increased production of tears; Denies: change in vision ENMT: Denies: throat pain Card: Reports: dyspnea on exertion; Denies: chest pain, palpitations, irregular heart rhythm, edema, swelling of feet/ankles, syncope, pre-syncope or orthopnea Resp: Reports: dyspnea; Denies: productive cough or non-productive cough GI: Denies: abdominal pain, nausea or vomiting : Denies: flank pain or difficulty voiding Musc: Denies: neck pain Skin/Breast: Denies: rash Neuro: Denies: headache(s) Psych: Reports: depression and mood swings; Denies: anxiety Endo: Denies: polyuria Robby/Lymph: Denies: easy bruising All/Imm: Denies: urticaria Medications/Allergies Home Medications Medication Instructions Recorded Confirmed Last Taken Type 1 tab PO DAILY 05/05/19 10/13/19 10/13/19 History albuterol sulfate [ProAir HFA] See Rx Instructions .ROUTE .COMPLEX 05/05/19 10/13/19 10/13/19 History bismuth subsalicylate 524 mg PO Q1H PRN 05/05/19 10/13/19 05/04/19 History [Pepto-Bismol] docusate sodium [Colace] 100 mg PO BID 05/05/19 10/13/19 10/13/19 History fluticasone propionate 1 spray INTRANASAL DAILY 05/05/19 10/13/19 10/13/19 History levothyroxine 50 mcg PO DAILY 05/05/19 10/13/19 10/13/19 History loperamide [Imodium A-D] 2 mg PO PRN PRN 05/05/19 10/13/19 05/04/19 History montelukast [Singulair] 10 mg PO DAILY 05/05/19 10/13/19 10/13/19 History acetaminophen 325 mg tablet 325 mg PO QID PRN 07/08/19 10/13/19 Unknown History apixaban 5 mg tablet 5 mg PO BID 07/08/19 10/13/19 10/13/19 History lisinopril 10 mg tablet 10 mg PO DAILY 07/08/19 10/13/19 10/13/19 History pantoprazole 40 mg tablet,delayed 40 mg PO DAILY 07/08/19 10/13/19 10/13/19 History release potassium chloride 20 mEq 20 meq PO DAILY tab 07/08/19 10/13/19 10/13/19 History tablet,extended release rosuvastatin 10 mg tablet 20 mg PO DAILY tab 07/08/19 10/13/19 10/13/19 History sumatriptan succinate 100 mg tablet 100 mg PO Q2H PRN 07/08/19 10/13/19 Unknown History aripiprazole 5 mg tablet 5 mg PO DAILY #30 tab 08/11/19 10/13/19 10/13/19 Rx cholecalciferol (vitamin D3) 25 1,000 unit PO DAILY #30 cap 08/11/19 10/13/19 10/13/19 Rx mcg (1,000 unit) capsule duloxetine 60 mg capsule,delayed 120 mg PO DAILY #60 cap 08/11/19 10/13/19 10/13/19 Rx release lorazepam 0.5 mg tablet 0.5 mg PO BID #60 tab 08/11/19 10/13/19 10/13/19 Rx quetiapine 200 mg tablet 200 mg PO .HS #30 tab 08/11/19 10/13/19 10/12/19 Rx trazodone 150 mg tablet 150 mg PO DAILY #30 tab 08/11/19 10/13/19 10/13/19 Rx melatonin 3 mg capsule 3 mg PO .at bed #30 cap 08/13/19 10/13/19 10/12/19 Rx Allergies Allergy/AdvReac Type Severity Reaction Status Date / Time codeine Allergy ALGY-Rash Verified 10/13/19 19:09 diphenhydramine Allergy ADR-Irritab Verified 10/13/19 19:09 [From Benadryl] le pseudoephedrine Allergy ADR-Irritab Verified 10/13/19 19:09 [From Sudafed] le Sulfa (Sulfonamide Allergy ALGY-Rash Verified 10/13/19 19:09 Antibiotics) tuberculin, purified protein Allergy Unknown Verified 10/13/19 19:09 deriva Benadryl Allergy Unknown Unknown Uncoded 09/25/19 09:39 Sudafed Allergy Unknown Unknown Uncoded 09/25/19 09:39 sulfa Allergy Unknown Unknown Uncoded 09/25/19 09:39 PFSH Acute PFSH: Medical History Chronic migraine without aura, intractable, with status migrainosus CVA (cerebrovascular accident) Diabetes GERD (gastroesophageal reflux disease) History of atrial fibrillation Hypertension Hypothyroidism Major depressive disorder, recurrent, moderate Migraine She has tried beta-blockers antidepressant anticonvulsant NSAIDs and Botox Peripheral vascular disease Status post placement of implantable loop recorder 2009 Surgical History H/O colonoscopy H/O esophagogastroduodenoscopy S/P Botox injection Family History Other CAD (coronary artery disease) Hypertension Social History Smoking and tobacco status: never smoked Alcohol intake: never Substance/Drug Use: never Household members: family Housing: House Vitals/I&O/Wt Last Vital Signs Pulse 116 H 10/13/19 19:20 Resp 22 H 10/13/19 19:20 BP 161/111 10/13/19 19:55 Pulse Ox 95 10/13/19 19:20 Weight last 48 hrs Weight 105.687 kg Physical Exam Narrative: EXAM NARRATIVE: Head to toe examination Appears stated age Has visible coarse tremors at rest and active movements Bilateral dilated pupil EOMI PERRLA No cerebellar sign Strength 3/5 in all extreme Gait not tested No facial asymmetry S1, S2 sinus tachycardia no signs of heart failure Abdomen soft nontender nondistended Lungs are clear to auscultation bilaterally without adventitious sounds Anxious mood Flushed skin appearance of face Extremity no signs of ischemia gangrene ulcer Data : 10/13/19 18:57 10/13/19 18:57 A&P Assessment and plan (1) Hypertensive urgency: Status: Acute (2) Sinus tachycardia: Status: Acute (3) Coarse tremors: Status: Acute (4) Prolonged Q-T interval on ECG: Status: Acute Additional A&P Information Hypertensive urgency with tachycardia Patient at home takes lisinopril and metoprolol Did not take metoprolol for last 48 hours Has coarse tremors on rest and active movements without any history of Parkinson's in the past, no cerebellar signs, concern for lacunar small vessel infarct I would get CT head without contrast, she will probably benefit from MRI brain for diagnostic purposes in the morning Target blood pressure reduction 25% in next 18 to 20-hour Would add amlodipine and hydrochlorothiazide and increase lisinopril dose TSH normal, drug screen negative, PE ruled out Atrial fibrillation chronic anticoagulation with Eliquis Patient has not used metoprolol for last 48 hours Current rhythm is sinus tachycardia Prolonged QTc interval on EKG Hold antipsychotics and antidepressant for now Check magnesium level Hypothyroidism: Continue levothyroxine 50 mcg, TSH is normal DVT prophylaxis low Cardiac diet Full code Attestations Medical Necessity Statement*: Anticipating discharge in less than 48 hours currently need blood pressure management and might need MRI in the morning Time Spent in Patient Care: (>than 50% of time spent in counselling and/or direct pt care on unit). 60mins Coding Level of Care Code Acute Jumpbasting Lining Baster for Chg Fwd Diagnoses Hypertensive urgency I16.0 Sinus tachycardia R00.0 Coarse tremors G25.2 Prolonged Q-T interval on ECG R94.31
--- NOTE | 2019-10-14 00:05 | ECG_ITS ---
[facility] Test Date: 2019-10-13 Pat Name: Maris Mcdermott Department: Room: 250 Gender: Female Horse Identifier: : 1960 Requested By: Angle Mathis Order Number: [id number] John MD: Mela Daly M.D. Measurements Intervals [place] Rate: 130 P: 51 LA: 157 QRS: 52 QRSD: 85 T: 47 QT: 374 QTc: 551 Interpretive Statements SINUS TACHYCARDIA LOW QRS VOLTAGE IN PRECORDIAL LEADS [QRS DEFLECTION < 1.0 mV IN CHEST LEADS] NONSPECIFIC T-WAVE ABNORMALITY ABNORMAL RHYTHM ECG Compared to ECG 05/16/2018 05:46:10 T-wave abnormality now present Sinus rhythm no longer present Electronically Signed On 10-14-2019 23:49:14 CDT by Mela Daly M.D. [id number] neema
--- NOTE | 2019-10-14 00:13 | CTR_ITS ---
PROCEDURE INFORMATION: Exam: CT Head Without Contrast Exam date and time: 10/14/2019 12:46 AM Age: 59 years old Clinical indication: Other: Hypertension; Additional info: Hypertension, hospitalist request TECHNIQUE: Imaging protocol: Computed tomography of the head without contrast. Radiation optimization: All CT scans at this facility use at least one of these dose optimization techniques: automated exposure control; mA and/or kV adjustment per patient size (includes targeted exams where dose is matched to clinical indication); or iterative reconstruction. COMPARISON: No relevant prior studies available. RADIATION DOSE METRICS: Total DLP (mGy-cm): 733.64 FINDINGS: Brain: No acute intracranial hemorrhage or mass effect. Small well-defined low attenuation area along the inferior margin of the right basal ganglia could represent a prominent perivascular space or an old lacunar infarct. No definite acute infarct by CT. MRI could be more sensitive/specific for detection, as clinically directed. Ventricles: Ventricle size is normal for age. Bones/joints: No definite acute skull fracture. Sinuses: Included paranasal sinuses are essentially clear. Mastoid air cells: No significant acute finding. CT/CT head wo con* [id number] IMPRESSION: 1. No acute intracranial hemorrhage or mass effect. 2. No definite acute infarct by CT, see above. 3. Other findings discussed above. Radiation Dose CTDIVOL = (mGy): DLP = 733.64 (mGy-cm)
[2019-10-14 00:31] VITALS: BP 175/111; PULSE 112; RESP 18; TEMP 36.9; O2SAT 98
[2019-10-14 00:44] LABS: Troponin 5 6HR 8.62 ng/L (0-10); Troponin 5 6HR Delta 1.62 ng/L (0-12)
[2019-10-14 01:50] LABS: Magnesium 2.1 mg/dL (1.7-2.3)
[2019-10-14] MEDS: hydroCHLOROthiazide 25 mg Tablet 12.5 MG PO ×2 (02:15→07:59)
[2019-10-14] MEDS: labetalol 5 mg/mL SDV 20mL 10 MG IVP (02:16)
[2019-10-14 02:35] LABS: Basophils # 0.1 10^3/uL (0.0-0.1); Basophils % 0.7 %; Eosinophils # 0.1 10^3/uL (0.0-0.8); Eosinophils % 1.9 %; Hematocrit 39.6 % (37.0-47.0); Lymphocytes # 2.4 10^3/uL (0.8-4.8); Lymphocytes % 32.6 %; Mean Corpuscular HGB Conc 32.8 g/dL (30.0-36.0); Mean Corpuscular Volume 88.4 fL (81-99); Mean Platelet Volume 9.9 fL (7.4-10.4); Monocytes # 0.6 10^3/uL (0.2-0.9); Monocytes % 7.6 %; Neutrophils # 4.2 10^3/uL (1.8-7.7); Neutrophils % 56.8 %; Nucleated Red Blood Cells % 0 %; Platelet Count 265 10^3/cmm (130-400); Red Blood Count 4.48 10^6/uL (4.1-5.3); Red Cell Distribution Width 11.9 % (12.1-15.1); White Blood Count 7.4 10^3/uL (4.0-10.0)
[2019-10-14 02:49] LABS: Anion Gap 17.4 (5-19); Blood Urea Nitrogen 7 mg/dL (6-20); Carbon Dioxide 25 mmol/L (22-29); Chloride 99 mmol/L (98-107); Glomerular Filtration Rate 102.3 mL/min (90-130); Glucose 151 mg/dL (65-115); Osmolality Calculated 285 mOsm/kg (285-295); Potassium 3.4 mmol/L (3.5-5.1); Sodium 138 mmol/L (136-145)
[2019-10-14] MEDS: acetaminophen 325 mg Tablet PO ×3 (03:17→18:28)
[2019-10-14] MEDS: LORazepam 0.5 mg Tablet PO (03:17)
[2019-10-14 04:00] VITALS: BP 134/85; PULSE 114; RESP 20; TEMP 36.8; O2SAT 96
[2019-10-14 07:19] VITALS: BP 180/96; PULSE 112; RESP 18; TEMP 36.6; O2SAT 95
[2019-10-14] MEDS: metoprolol tartrate 50 mg Tablet PO ×2 (07:58→18:00)
[2019-10-14] MEDS: apixaban 5 mg Tablet PO ×2 (07:58→18:00)
[2019-10-14] MEDS: lisinopril 10 mg Tablet 20 MG PO (07:58)
[2019-10-14] MEDS: pantoprazole DR 40 mg Tablet PO (07:59)
[2019-10-14] MEDS: levothyroxine 50 mcg Tablet PO (07:59)
[2019-10-14] MEDS: amlodipine 10 mg Tablet PO (07:59)
--- NOTE | 2019-10-14 08:22 | MR_ITS ---
WS: [id number] MRI BRAIN WITHOUT CONTRAST HISTORY: stroke COMPARISON: 06/12/2013 and 10/14/2019 TECHNIQUE: Diffusion imaging, multiplanar T1, T2 and FLAIR imaging obtained. No evidence for acute infarct or hemorrhage. Marnio-white matter differentiation is normal. Mild atrophy with no significant small vessel ischemic changes. Ventricles and extra-axial spaces are normal. No inferior displacement of cerebellar tonsils. The sella turcica and pituitary gland are unremarkabl e. Posterior fossa is also unremarkable. Dural venous sinuses and duck[place] of [place] demonstrate no abnormality on this unenhanced studies. Paranasal sinuses: Clear. Mastoid air cells: Normal. Calvarium and scalp: Intact. MR/MR head wo con* [id number] IMPRESSION: 1. Unremarkable noncontrast MRI brain. 2. No acute infarct.
[2019-10-14] MEDS: ondansetron 2 mg/ML SDV 2 mL 4 MG IVP ×2 (08:38→13:57)
[2019-10-14 11:37] VITALS: BP 158/93; PULSE 99; RESP 20; TEMP 37.1; O2SAT 92
--- NOTE | 2019-10-14 12:07 | PC.CHAP ---
Pastoral Care Encounter/Spiritual Assessment Type of Contact [] Declined consumer insights specialist visit [] Patient/Family/Request visit [] Outpatient visit [] Follow-up visit [] Physician referral [] Code/Alert [] Routine visit [] Staff referral [] Actively dying [] Patient sleeping [] Family support [] [] Out of room [] Palliative care [] [] Receiving care in room [] Pre-surgical visit [] Trauma [] Long length of stay [] ICU visit [x] Other: Fellow Up Relational/Emotional Strength [] Patient feels connected with others/family/visitors/staff [] Distress [] Loneliness/isolation [] Abandonment Spirituality of Patient [] Person of Bhavani [] Attends Scientology of their Bhavani [] Believes in Prayer [] Reads Bible or Protestant materials [] There are Spiritual issues to be addressed [place] Interventions [] Prayer [] Active listening [] Non-anxious presence [] Spiritual/emotional support [] Crisis/trauma care [] Spiritual counseling [] Bereavement support [] Provided bereavement packet [] Provided Bible/devotional materials [] Provided toy/stuffed animal, coloring book to patient or family member [] Provided Communion [] Anointing/Higgins [] Salvation [] Completed spiritual assessment [] Other: Impact on Illness or Injury [] Angry [] Fearful [] Anxious [] Often cries [] Exhaustion [] Unable to work [] Unable to attend sabianism [] Unable to walk/stand [] Unable to read [] Unable to drive [] Unable to eat/drink [] Unable to sleep [] Unable to be with family [] Patient intubated [] Other: Summary Fellow Up Time spent with patient 5 mins
--- NOTE | 2019-10-14 13:29 | P.PN_ITS ---
Subjective Subjective: Interval history: Patient was seen after she had her MRI performed Patient states that starting on Sunday night, she noticed that her right arm was cramping, right hand was cramping, no numbness or tingling per se, she checked her blood pressure and her blood pressure was over 220s over 110s, did not seek medical intervention, then throughout the weekend she might of had some intermittent numbness of her left hand, some clumsiness, she stated that she felt unsteady on her feet, she use the ma to help ambulate her because she felt unsteady, and then decided to see her primary care physician on Sunday, when she was seen she was found to be fairly hypertensive and tachycardic and was brought to [facility] for a further evaluation. Patient does report that she has run out of her medications, last took her medications possibly on Sunday, many of her medications were blood pressure medications, including metoprolol, so likely she was going through beta-ray withdrawal explainimg her tachycardia, high blood pressure because she had not taken her blood pressure medications, she is adamant that she took her Eliquis, no significant focal neurologic deficits currently, no numbness currently does, does have a headache, does get Botox injections for headaches Vitals/I&O/Wt Last Vital Signs Temp 98.8 F 10/14/19 11:37 Pulse 99 10/14/19 11:37 Resp 20 H 10/14/19 11:37 BP 158/93 10/14/19 11:37 Pulse Ox 92 10/14/19 11:37 10/13/19 10/14/19 10/14/19 22:59 06:59 14:59 Intake Total 1200 / 1200 720 / 720 Output Total 1000 / 1000 1400 / 1400 Balance 200 / 200 -680 / -680 Weight last 48 hrs Weight 105.687 kg Physical Exam Const: COMMON NORMALS: no acute distress and patient oriented x3 HENMT: COMMON NORMALS: normocephalic HEAD & SCALP: normocephalic Eye: OTHER: Patient's left eyebrow is a bit exaggerated and raised compared to right eyebrow, which I suspect is secondary to her Botox injection Neck/C-Spine: COMMON NORMALS: no JVD Resp: COMMON NORMALS: normal respiratory effort, No retractions, No use of accessory muscles and clear to auscultation bilaterally AUSCULTATION: clear to auscultation bilaterally Cardio: COMMON NORMALS: no JVD, regular rate, regular rhythm, S1 normal heart sound present and S2 normal heart sound present RATE: regular rate RHYTHM: regular rhythm HEART SOUNDS: S1 normal heart sound present and S2 normal heart sound present GI: COMMON NORMALS: Normal to inspection, nondistended, normoactive bowel sounds present, Soft to palpation, non-tender, No hepatosplenomegaly present, no masses and no bruits PALPATION: Yes Soft to palpation and Yes No hepatosplenomegaly present Extremity: COMMON NORMALS: capillary refill normal, no clubbing, cyanosis or edema, no calf tenderness and no pedal edema Neuro: COMMON NORMALS: patient oriented x3 Psych: COMMON NORMALS: mental status grossly normal Data : 10/14/19 02:06 10/14/19 02:06 A&P Assessment and plan (1) Hypertensive urgency: Status: Acute (2) Sinus tachycardia: Status: Acute (3) Coarse tremors: Status: Acute (4) Prolonged Q-T interval on ECG: Status: Acute Additional A&P Information Hypertensive urgency with tachycardia secondary to noncompliance, beta-ray withdrawal Continue home medications, monitor blood pressures, monitor heart rate, continue telemetry monitoring Transient ischemic attack, related to hypertensive urgency, currently resolved, NIH stroke scale 0 -MRI of the brain no acute stroke -We will order carotid ultrasound, cardiac echo -Currently on Eliquis, -Continue Eliquis, add atorvastatin Atrial fibrillation chronic anticoagulation with Eliquis Patient has not used metoprolol for last 48 hours Current rhythm is sinus tachycardia Prolonged QTc interval on EKG Hold antipsychotics and antidepressant for now Check magnesium level Hypothyroidism: Continue levothyroxine 50 mcg, TSH is normal DVT prophylaxis low Cardiac diet Full code Attestations Medical Necessity Statement*: Patient requires continued hospitalization for hypertensive urgency, transient ischemic attack Coding Level of Care Code Acute Supervisor [employer] for [facility] Fwd Diagnoses Hypertensive urgency I16.0 Sinus tachycardia R00.0 Coarse tremors G25.2 Prolonged Q-T interval on ECG R94.31
--- NOTE | 2019-10-14 13:35 | ECG_ITS ---
[facility] Test Date: 2019-10-14 Pat Name: Maris Mcdermott Department: Room: 250 Gender: Female Manager Local: : 1960 Requested By: Talon Otto Order Number: [id number] John MD: Mela Daly M.D. Measurements Intervals [place] Rate: 102 P: 57 SD: 168 QRS: 33 QRSD: 82 T: 44 QT: 370 QTc: 484 Interpretive Statements SINUS TACHYCARDIA LOW QRS VOLTAGE IN PRECORDIAL LEADS [QRS DEFLECTION < 1.0 mV IN CHEST LEADS] ABNORMAL RHYTHM ECG Compared to ECG 10/13/2019 20:33:19 T-wave abnormality no longer present Electronically Signed On 10-14-2019 23:46:13 CDT by Mela Daly M.D. [email or web address][email or web address]/[id number]
[2019-10-14 15:30] VITALS: BP 146/92; PULSE 104; RESP 20; TEMP 37.1; O2SAT 95
[2019-10-14] MEDS: aspirin 81 mg EC Tablet PO (18:28)
[2019-10-14 20:00] VITALS: BP 104/68; PULSE 96; RESP 20; TEMP 37.2; O2SAT 96
[2019-10-14] MEDS: quetiapine 100 mg Tablet 200 MG PO (20:43)
[2019-10-14] MEDS: trazodone 150 mg Tablet PO (20:43)
[2019-10-14] MEDS: atorvastatin 40 mg Tablet PO (20:43)
--- NOTE | 2019-10-14 20:46 | PC.NURSE ---
NOTE Assumed care of pt at this time. Given pm meds. Says is feeling much better now. Rates headache at a 3 and denies needs for med
[2019-10-15] VITALS: BP 113/79; PULSE 98; RESP 20; TEMP 37.1; O2SAT 94
[2019-10-15 04:00] VITALS: BP 92/57; PULSE 124; RESP 20; TEMP 37.2; O2SAT 92
[2019-10-15 05:00] LABS: Basophils % 0.4 %; Eosinophils # 0.2 10^3/uL (0.0-0.8); Eosinophils % 2.2 %; Hematocrit 41.5 % (37.0-47.0); Hemoglobin 13.5 g/dL (11.5-15.3); Lymphocytes # 2.6 10^3/uL (0.8-4.8); Lymphocytes % 28.9 %; Mean Corpuscular HGB Conc 32.5 g/dL (30.0-36.0); Mean Corpuscular Hemoglobin 29.2 pg (28.0-34.0); Mean Corpuscular Volume 89.8 fL (81-99); Mean Platelet Volume 9.8 fL (7.4-10.4); Monocytes # 0.7 10^3/uL (0.2-0.9); Monocytes % 7.9 %; Neutrophils # 5.5 10^3/uL (1.8-7.7); Neutrophils % 60.3 %; Nucleated Red Blood Cells % 0 %; Platelet Count 298 10^3/cmm (130-400); Red Blood Count 4.62 10^6/uL (4.1-5.3); White Blood Count 9.2 10^3/uL (4.0-10.0)
[2019-10-15 05:37] LABS: Alanine Aminotransferase 74 U/L (0-33); Alkaline Phosphatase 89 IU/L (35-105); Anion Gap 18.2 (5-19); Aspartate Amino Transferase 52 U/L (0-32); Blood Urea Nitrogen 12 mg/dL (6-20); Calcium 9.4 mg/dL (8.5-10.5); Carbon Dioxide 27 mmol/L (22-29); Chloride 95 mmol/L (98-107); Globulin 3.1 g/dL (1.3-4.6); Glomerular Filtration Rate 50.8 mL/min (90-130); Glucose 159 mg/dL (65-115); Magnesium 2.4 mg/dL (1.7-2.3); Osmolality Calculated 283 mOsm/kg (285-295); Phosphorus 4.2 mg/dL (2.5-4.5); Potassium 3.2 mmol/L (3.5-5.1); Sodium 137 mmol/L (136-145); Total Bilirubin 0.5 mg/dL (0.15-1.2); Total Protein 7.1 g/dL (6.6-8.7)
--- NOTE | 2019-10-15 05:48 | PC.NURSE ---
SHIFT SUMMARY Had a good night without c/o. Had little bit of headache in the evening but says is ok this morning.
--- NOTE | 2019-10-15 07:00 | USCV_ITS ---
Maris Mcdermott Age: 59 Gender: F : 1960 Exam Date: 10/15/2019 06:36 Ordering Phys: Talon Otto MD Technologist: Krishan Golsdmith Exam Location: [facility] [place] Indication: TIA Risk Factors: None Previous Vascular Surgery: None Right Brachial BP: / Left Brachial BP: / Right Left Velocity (cm/s) Spectral Plaque Velocity (cm/s) Spectral Plaque Syst/Diast Broadening Syst/Diast Broadening 81.25/ 23.55 Prox CCA 70.20 / 19.50 87.25/ 28.95 Mid CCA 56.90 / 16.40 82.95/ 26.85 Distal CCA 73.30 / 26.50 52.60/ 16.30 Prox ICA 54.60 / 17.20 90.90/ 19.70 Mid ICA 67.00 / 25.70 72.50/ 24.20 Distal ICA 70.90 / 29.60 72.90 ECA 70.20 1.04 ICA/CCA 0.97 Antegrade Vertebral Antegrade 46.00/ 12.50 cm/s 47.60/ 6.20 cm/s Tri Subclavian Tri 78.00 86.50 FINDINGS Minimal plaques at the bifurcations Intimal thickening in the common carotid and internal carotid arteries bilaterally Antegrade flow in the vertebral arteries bilaterally Normal Doppler flow velocities in the external carotid and subclavian arteries bilaterally CONCLUSIONS Minimal plaques at the bifurcations. Intimal thickening in the common carotid and internal carotid arteries bilaterally. No significant stenosis, based on the above findings Dr Mela Daly MD [facility] (Electronically Signed) Final Date: 15 October 2019 19:52 S
--- NOTE | 2019-10-15 07:00 | USCV_ITS ---
Maris Mcdermott Age: 59 Gender: F : 1960 Exam Date: 10/15/2019 06:22 Ordering Phys: Talon Otto MD Technologist: Krishan Goldsmith [place] [facility] [place]ication: TIA BP: 130 / 80 HR: 104 Rhythm: Sinus Technical Quality: Very technically difficult study MEASUREMENTS (Male / Female) Normal Values 2D ECHO LV Diastolic Diameter PLAX 4.0 cm 4.2 - 5.9 / 3.9 - 5.3 cm LV Systolic Diameter PLAX 2.5 cm IVS Diastolic Thickness 1.0 cm 0.6 - 1.0 / 0.6 - 0.9 cm IVS Systolic Thickness 2.0 cm LVPW Diastolic Thickness 0.9 cm 0.6 - 1.0 / 0.6 - 0.9 cm LVPW Systolic Thickness 1.3 cm LVOT Diameter 2.0 cm LV Ejection Fraction 2D Teich 69.3 % LA Diameter 3.9 cm Aorta at Sinotubular Diameter 3.0 cm M-MODE LV Diastolic Diameter MM 4.0 cm 4.2 - 5.9 / 3.9 - 5.3 cm LV Systolic Diameter MM 4.6 cm LV Ejection Fraction MM Teich -41.9 % IVS Diastolic Thickness MM 1.5 cm 0.6 - 1.0 / 0.6 - 0.9 cm IVS Systolic Thickness MM 1.7 cm LVPW Diastolic Thickness MM 1.1 cm 0.6 - 1.0 / 0.6 - 0.9 cm LVPW Systolic Thickness MM 1.6 cm RV Diastolic Diameter MM 2.3 cm Aortic Annulus Diameter 3.1 cm LA Ao Ratio MM 1.3 MV E Point Septal Separation 0.6 cm DOPPLER TR Peak Velocity 167.0 cm/s TR Peak Gradient 11.2 mmHg TV Peak E Velocity 82.0 cm/s Right Atrial Pressure 3.0 mmHg Pulmonary Artery Systolic Pressu 14.2 mmHg FINDINGS Left Ventricle Normal left ventricular cavity size. Normal left ventricular systolic function. No regional wall motion abnormalities. Left ventricular ejection fraction is estimated at 65 %. Right Ventricle The right ventricle is normal in size and function. Right Atrium The right atrium is normal in size. Left Atrium The left atrium is normal in size. Mitral Valve Structurally normal mitral valve without significant stenosis or prolapse. There is no mitral regurgitation. Aortic Valve Structurally normal aortic valve without significant sclerosis or stenosis. There is no aortic regurgitation. Tricuspid Valve Structurally normal tricuspid valve without significant stenosis or regurgitation. Pulmonary artery systolic pressure is normal. Pulmonic Valve Structurally normal pulmonic valve without significant stenosis. There is no pulmonic regurgitation. Pericardium Normal pericardium without effusion. Aorta Normal ascending aorta dimension. CONCLUSIONS 1-Normal left ventricular cavity size. Normal left ventricular systolic function. No regional wall motion abnormalities. Left ventricular ejection fraction is estimated at 65 %. 2-There is no pericardial effusion. 3-No significant valve abnormalities. 4-No significant change since the prior echocardiogram study of 05/12/2013. Fer Sanchez MD (Electronically Signed) Final Date: 15 October 2019 18:53 S
[2019-10-15 07:09] VITALS: BP 108/77; PULSE 76; RESP 18; TEMP 37.1; O2SAT 95
[2019-10-15] MEDS: levothyroxine 50 mcg Tablet PO (07:57)
[2019-10-15] MEDS: aspirin 81 mg EC Tablet PO (07:58)
[2019-10-15] MEDS: metoprolol tartrate 50 mg Tablet PO (07:58)
[2019-10-15] MEDS: amlodipine 10 mg Tablet PO (07:59)
[2019-10-15] MEDS: apixaban 5 mg Tablet PO (07:59)
[2019-10-15] MEDS: hydroCHLOROthiazide 25 mg Tablet 12.5 MG PO (07:59)
[2019-10-15] MEDS: lisinopril 10 mg Tablet 20 MG PO (07:59)
[2019-10-15] MEDS: pantoprazole DR 40 mg Tablet PO (07:59)
--- NOTE | 2019-10-15 09:59 | PC.CHAP ---
Pastoral Care Encounter/Spiritual Assessment Type of Contact [] Declined billiard parlor manager visit [] Patient/Family/Request visit [] Outpatient visit [] Follow-up visit [] Physician referral [] Code/Alert [x] Routine visit [] Staff referral [] Actively dying [] Patient sleeping [] Family support [] [] Out of room [] Palliative care [] [] Receiving care in room [] Pre-surgical visit [] Trauma [] Long length of stay [] ICU visit [] Other: Relational/Emotional Strength [] Patient feels connected with others/family/visitors/staff [] Distress [] Loneliness/isolation [] Abandonment Spirituality of Patient [] Person of Bhavani [] Attends Synagogue of their Bhavani [] Believes in Prayer [] Reads Bible or Adventism materials [] There are Spiritual issues to be addressed Childcare Worker Interventions [x] Prayer [x] Active listening [x] Non-anxious presence [x] Spiritual/emotional support [] Crisis/trauma care [] Spiritual counseling [] Bereavement support [] Provided bereavement packet [] Provided Bible/devotional materials [] Provided toy/stuffed animal, coloring book to patient or family member [] Provided Communion [] Anointing/[place] [] Salvation [x] Completed spiritual assessment [] Other: Impact on Illness or Injury [] Angry [] Fearful [] Anxious [] Often cries [] Exhaustion [] Unable to work [] Unable to attend voodoo [] Unable to walk/stand [] Unable to read [] Unable to drive [] Unable to eat/drink [] Unable to sleep [] Unable to be with family [] Patient intubated [] Other: Summary Patient feeling stronger. Very pleased with care while at [facility] Time spent with patient 10 min
[2019-10-15 11:01] VITALS: BP 120/80; PULSE 102; RESP 20; TEMP 36.5; O2SAT 92
--- NOTE | 2019-10-15 11:50 | ECG_ITS ---
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 Measurements Intervals [place] Rate: 93 P: 55 IA: 169 QRS: 24 QRSD: 95 T: 38 QT: 374 QTc: 467 Interpretive Statements SINUS RHYTHM LOW QRS VOLTAGE IN PRECORDIAL LEADS NONSPECIFIC T-WAVE ABNORMALITY Compared to ECG 10/14/2019 14:57:22 T-wave abnormality now present Sinus tachycardia no longer present Electronically Signed On 10-15-2019 17:11:57 CDT by Elizabeth Delaney M.D. [id number]
--- NOTE | 2019-10-15 11:59 | PM.DCS ---
Discharge Providers Date of Admission: 10/14/19 01:03 Date of Discharge: October 15, 2019 Attending Provider at Admission: Fer Be MD Attending Provider at Discharge: Talon Otto MD Primary Care Provider: Susi rPatt MD Diagnoses at Discharge Discharge Diagnosis (1) Hypertensive urgency: Status: Resolved (2) Sinus tachycardia: Status: Acute (3) Coarse tremors: Status: Acute (4) Prolonged Q-T interval on ECG: Status: Acute Reason for Visit Reason for Visit: sent over by doctor/ [facility] stroke Hospital Course Discharge Summary: This is a 59-year-old female with a past medical history of intractable migraines on Botox injections, hypertension, hypothyroidism, atrial fibrillation on chronic anticoagulation Eliquis, who presented to [facility] from Dr. Fernandes's office due to concerns for hypertension, tachycardia, and transient ischemic attack symptoms Patient states that starting on Sunday night, she noticed that her right arm was cramping, right hand was cramping, no numbness or tingling per se, she checked her blood pressure and her blood pressure was over 220s over 110s, did not seek medical intervention, then throughout the weekend she might of had some intermittent numbness of her left hand, some clumsiness, she stated that she felt unsteady on her feet, she use the ma to help ambulate her because she felt unsteady, and then decided to see her primary care physician on Sunday, when she was seen she was found to be fairly hypertensive and tachycardic and was brought to [facility] for a further evaluation. Patient does report that she has run out of her medications, last took her medications possibly on Sunday, many of her medications were blood pressure medications, including metoprolol, so likely she was going through beta-ray withdrawal explainimg her tachycardia, high blood pressure because she had not taken her blood pressure medications, she is adamant that she took her Eliquis, no significant focal neurologic deficits currently, no numbness currently does, does have a headache, does get Botox injections for headaches Patient was admitted for transient ischemic attack, she had a CT of her head which was negative for intracranial hemorrhage, MRI of her brain showed no acute infarct. Patient remained asymptomatic during hospitalization, her NIH stroke scale was 0, her carotid ultrasound and cardiac echo are pending on discharge and should be followed up up as outpatient. Likely patient had a transient ischemic attack associateD with hypertensive emergency, for which she did not seek medical intervention at that time. Patient was discharged on aspirin, statin, her home Eliquis, and her home metoprolol,. She was discharged on lisinopril 20 mg p.o. daily, hydrochlorothiazide 12.5 p.o. daily. Patient was advised of compliance with her home medications, advised if she were to have recurrence of her symptoms to immediately call 911. Patient was also admitted for hypertensive urgency, after resuming her home medications, her blood pressures lowered to reasonable range, advised to monitor blood pressures twice daily as outpatient, bring blood pressure logs to Dr. Fernnades's office, repeat blood work in 1 week., Follow-up with Dr. Fernandes in 1 week. For patient's tachycardia, initially was thought to be beta-ray withdrawal, but even after beta-ray was reinstituted, she intermittently episode had episodes of sinus tachycardia, CT angios of the chest was negative for pulmonary embolism. Patient's QTC was also found to be prolonged during her hospitalization as prolonged is 551 ms. Her telemetry monitoring during her hospitalization showed sinus tachycardia, no A. fib events,, but she does have a known history of atrial fibrillation. Patient was discharged on an event monitor, with close follow-up with Dr. Dutton. For her prolonged QTC, likely secondary to her depression and anxiety medications, QTC on discharge was 481 ms. I have decreased patient's Abilify dose down to 2.5 mg daily, her trazodone dose has been decreased to 75 mg once in the morning, once at night, and her Seroquel dose has been decreased 150 mg once daily. Patient was advised to repeat EKG in 1 week., Follow-up with her regular physician and psychiatrist in a week if she has any changes in her mood or her depression anxiety symptoms.. Physical Exam Const: COMMON NORMALS: no acute distress and patient oriented x3 HENMT: COMMON NORMALS: normocephalic HEAD & SCALP: normocephalic Neck/C-Spine: COMMON NORMALS: no JVD Resp: COMMON NORMALS: normal respiratory effort, No retractions, No use of accessory muscles and clear to auscultation bilaterally AUSCULTATION: clear to auscultation bilaterally Cardio: COMMON NORMALS: no JVD, regular rate, regular rhythm, S1 normal heart sound present and S2 normal heart sound present RATE: regular rate RHYTHM: regular rhythm HEART SOUNDS: S1 normal heart sound present and S2 normal heart sound present GI: COMMON NORMALS: Normal to inspection, nondistended, normoactive bowel sounds present, Soft to palpation, non-tender, No hepatosplenomegaly present, no masses and no bruits PALPATION: Yes Soft to palpation and Yes No hepatosplenomegaly present Extremity: COMMON NORMALS: capillary refill normal, no clubbing, cyanosis or edema, no calf tenderness and no pedal edema Neuro: COMMON NORMALS: patient oriented x3 Psych: COMMON NORMALS: mental status grossly normal Discharge Data Data Completed and Pending: Completed Studies During Hospitalization Category Date Time Status CT angio chest PE protcl 81812 Urge nt Cat Scan 10/13/19 18:[address] head wo con* 7 0450 Routine Cat Scan 10/14/19 00:13 Completed XR chest 1V bernard ble [id number] Urgent Exams 10/13/19 18:06 Completed MR head wo con* 7 0551 Routine MRI 10/14/19 08:22 Completed Pending at discharge Category Date Time Status Complete Blood Co unt w/Auto AM LABS Lab 10/16/19 04:00 Ordered Complete Blood Co unt w/Auto AM LABS Lab 10/17/19 04:00 Ordered Comprehensive Met abolic Panel AM LA BS Lab 10/16/19 04:00 Ordered Comprehensive Met abolic Panel AM LA BS Lab 10/17/19 04:00 Ordered Magnesium AM LABS Lab 10/16/19 04:00 Ordered Magnesium AM LABS Lab 10/17/19 04:00 Ordered Phosphorus AM LAB S Lab 10/16/19 04:00 Ordered Phosphorus AM LAB S Lab 10/17/19 04:00 Ordered CV carotid duplex BI* [id number] Routine Ultrasound 10/15/19 07:00 Taken CV echo complete* [id number] Routine Ultrasound 10/15/19 07:00 Taken Labs from last 24 hours 10/15/19 10/15/19 04:08 04:08 WBC 9.2 RBC 4.62 Hgb 13.5 Hct 41.5 MCV 89.8 MCH 29.2 MCHC 32.5 RDW 12.0 L Plt Count 298 MPV 9.8 Neut % (Auto) 60.3 Lymph % (Auto) 28.9 [place] % (Auto) 7.9 Eos % (Auto) 2.2 Baso % (Auto) 0.4 Neut # (Auto) 5.5 Lymph # (Auto) 2.6 [place] # (Auto) 0.7 Eos # (Auto) 0.2 Baso # (Auto) 0.0 Nucleated RBC % (a uto) 0 Nucleated RBCs # 0.0 Sodium 137 Potassium 3.2 L Chloride 95 L Carbon Dioxide 27 Anion Gap 18.2 BUN 12 Creatinine 1.1 H GFR Calculation 50.8 L Glucose 159 H Calculated Osmolal ity 283 L Calcium 9.4 Phosphorus 4.2 Magnesium 2.4 H Total Bilirubin 0.5 AST 52 H ALT 74 H Alkaline Phosphata se 89 Total Protein 7.1 Albumin 4.0 Globulin 3.1 Vitals: Last Vital Signs Temp 97.7 F 10/15/19 11:01 Pulse 102 H 10/15/19 11:01 Resp 20 H 10/15/19 11:01 BP 120/80 10/15/19 11:01 Pulse Ox 92 10/15/19 11:01 Discharge Plan Discharge Patient Disposition: Home, Self-Care Condition: Stable Prescriptions: New aspirin 81 mg Tablet,Delayed Release (Dr/Ec) 81 mg PO DAILY 30 Days Qty: 30 RF: 0 amlodipine 10 mg Tablet 10 mg PO DAILY 30 Days Qty: 30 RF: 0 lisinopril 10 mg Tablet 20 mg PO DAILY 30 Days Qty: 30 RF: 0 hydrochlorothiazide 25 mg Tablet 12.5 mg PO DAILY 30 Days Qty: 30 RF: 0 Continued duloxetine 60 mg capsule,delayed release(DR/EC) 120 mg PO DAILY Qty: 60 RF: 1 Vitamin D3 25 mcg (1,000 unit) capsule 1,000 unit PO DAILY Qty: 30 RF: 1 lorazepam 0.5 mg tablet 0.5 mg PO BID Qty: 60 RF: 1 pantoprazole 40 mg tablet,delayed release (DR/EC) 40 mg PO DAILY RF: 0 Eliquis 5 mg tablet 5 mg PO BID RF: 0 melatonin 3 mg capsule 3 mg PO .at bed Qty: 30 RF: 2 loperamide [Imodium A-D] 2 mg Capsule 2 mg PO PRN PRN (Reason: Diarrhea) RF: 0 levothyroxine 50 mcg Tablet 50 mcg PO DAILY RF: 0 bismuth subsalicylate [Pepto-Bismol] 262 mg/15 mL Suspension 524 mg PO Q1H PRN (Reason: Stomach Upset) RF: 0 docusate sodium [Colace] 100 mg Capsule 100 mg PO BID RF: 0 montelukast [Singulair] 10 mg Tablet 10 mg PO DAILY RF: 0 albuterol sulfate [ProAir HFA] 90 mcg/actuation Hfa Aerosol Inhaler See Rx Instructions .ROUTE .COMPLEX RF: 0 fluticasone propionate 50 mcg/actuation [place],Suspension 1 spray INTRANASAL DAILY RF: 0 1 tab PO DAILY RF: 0 potassium chloride 20 mEq tablet extended release 20 meq PO DAILY RF: 0 Tylenol 325 mg tablet 325 mg PO QID PRN (Reason: Pain) RF: 0 Imitrex 100 mg tablet 100 mg PO Q2H PRN (Reason: UNKNOWN) RF: 0 metoprolol tartrate 50 mg Tablet 50 mg PO BID 30 Days Qty: 30 RF: 0 rosuvastatin 10 mg tablet 20 mg PO DAILY 30 Days Qty: 30 RF: 0 Changed Seroquel 200 mg tablet 150 mg PO .HS Qty: 30 RF: 1 trazodone 150 mg tablet 75 mg PO BEDTIME Qty: 0 RF: 0 trazodone 150 mg tablet 75 mg PO DAILY Qty: 30 RF: 1 Abilify 5 mg tablet 2.5 mg PO DAILY 30 Days Qty: 30 RF: 1 Discontinued lisinopril 10 mg tablet 10 mg PO DAILY RF: 0 Discharge Orders: Discharge Order (Routine); Ordered 10/15/19 Ordered By: Talon Otto Other Ambulatory Orders: Complete Blood Count w/Auto (Routine) Timeframe: 1 Week Location: Determined by Patient Ordered By: Talon Otto Comprehensive Metabolic Panel (Routine) Timeframe: 1 Week Facility: [facility] - Location: Lab - Main Lab Ordered By: Talon Otto ECG nonstress test (Routine) Timeframe: 1 Week Facility: [facility] - Location: Respiratory Therapy Ordered By: Talon Otto [place] 30 day event monitor (Routine) Timeframe: 1 Day Facility: [facility] - Location: Cardiac Diagnostic Laboratory Ordered By: Talon Otto Referrals: Radha Jacobsen MD [Physician] - 10/29/19 1:15 pm Susi Pratt MD [Primary Care Provider] - 10/21/19 1:00 pm (LABS CBC AND CMP AT APPOINTMENT) Jean-Pierre Melendez MD [Physician] - 11/17/19 1:00 pm Discharge Diet: Cardiac Discharge Activity: Resume usual activity Patient Instructions: Lisinopril (By mouth), Hydrochlorothiazide (By mouth), Aspirin (By mouth), Amlodipine (By mouth), Transient Ischemic Attack (DC), TIA Activity Restrictions/Additional Instructions: -If you have recurrent strokelike symptoms please call 911 -Please take all medication as prescribed HEART MONITOR AT HEART CARE Discharge Date/Time: 10/15/19 13:47 Discharge Attestations Time Spent in Discharge Care*: less than 30 min Quality Metrics Clinical Quality Measures During this hospital stay, did patient experience: None Coding Level of Care Code Acute Pharmacy Analyst for Chg Fwd Exam Comprehensive Diagnoses Hypertensive urgency I16.0 Sinus tachycardia R00.0 Coarse tremors G25.2 Prolonged Q-T interval on ECG R94.31
[2019-10-15 13:46] VITALS: BP 120/80; PULSE 102; RESP 20; TEMP 36.5; O2SAT 92
== END 2019-10-15 13:47 | disposition home or self-care (01) ==
LOC: ER 18:11 → MEDSURG 10-14 00:10
PROVIDERS: Physician Assistant; Admitting Provider Internal Medicine; PCP Internal Medicine; Visit Provider Family Medicine
DX: I16.0 Hypertensive urgency (principal); G45.9 Transient cerebral ischemic attack, unspecified; R00.0 Tachycardia, unspecified; G25.2 Other specified forms of tremor; R94.31 Abnormal electrocardiogram [ECG] [EKG]; Z86.79 Personal history of other diseases of the circulatory system; I10 Essential (primary) hypertension; E03.9 Hypothyroidism, unspecified; Z86.73 Personal history of transient ischemic attack (TIA), and cerebral infarction without residual deficits; K21.9 Gastro-esophageal reflux disease without esophagitis; E11.9 Type 2 diabetes mellitus without complications
CPT/HCPCS: 12345; 36415; 70450; 70551; 71045; 71275; 80048; 80053; 80306; 81001; 83605; 83735; 83880; 84100; 84443; 84484; 85025; 85610; 85730; 93005; 93306; 93880; 96360; 96374; 96375; 97161; 97165; 97166; 99283; 99285; G0378; J0360; J2405; J3490; J7030; Q9967

== ENCOUNTER → 2019-10-29 13:13 | Outpatient (BNVA) | payer MEDICAID, SELFPAY | PROVIDERS: PCP Internal Medicine; Visit Provider Specialist | DX: I63.9 Cerebral infarction, unspecified (principal); G45.9 Transient cerebral ischemic attack, unspecified; R94.31 Abnormal electrocardiogram [ECG] [EKG]; R00.0 Tachycardia, unspecified; I48.91 Unspecified atrial fibrillation; G43.711 Chronic migraine without aura, intractable, with status migrainosus | CPT/HCPCS: 99215 ==

== ENCOUNTER → 2019-10-30 07:34 | Outpatient (BNVA) | payer MEDICAID, SELFPAY | PROVIDERS: PCP Internal Medicine; Visit Provider Nurse Practitioner | DX: F33.1 Major depressive disorder, recurrent, moderate (principal) | CPT/HCPCS: 99214 ==

== ENCOUNTER → 2019-12-18 09:39 | Outpatient (BNVA) | payer MEDICAID, SELFPAY | PROVIDERS: PCP Internal Medicine; Visit Provider Specialist | DX: G43.711 Chronic migraine without aura, intractable, with status migrainosus (principal); I48.91 Unspecified atrial fibrillation; G45.9 Transient cerebral ischemic attack, unspecified; G25.2 Other specified forms of tremor | CPT/HCPCS: 64615; 99202; J0585 ==

== ENCOUNTER → 2019-12-25 08:38 | Outpatient (BNVA) | payer MEDICAID, SELFPAY | PROVIDERS: PCP Internal Medicine; Visit Provider Nurse Practitioner | DX: F33.1 Major depressive disorder, recurrent, moderate (principal) | CPT/HCPCS: 99214 ==

== ENCOUNTER 2020-02-25 14:00 | Emergency (ER) | payer MEDICAID, SELFPAY ==
[2020-02-25 14:08] VITALS: BP 151/114; PULSE 85; RESP 18; TEMP 36.9; O2SAT 95; BMI 32.2
--- NOTE | 2020-02-25 17:19 | ECG_ITS ---
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 Measurements Intervals [place] Rate: 79 P: 53 FL: 158 QRS: 44 QRSD: 78 T: 52 QT: 381 QTc: 439 Interpretive Statements SINUS RHYTHM LOW QRS VOLTAGE IN PRECORDIAL LEADS [QRS DEFLECTION < 1.0 mV IN CHEST LEADS] Compared to ECG 10/15/2019 12:04:03 T-wave abnormality no longer present Electronically Signed On 02-25-2020 18:58:50 SHEET METAL DUCT INSTALLER HELPER by Elizabeth Delaney M.D. [id number]
== END 2020-02-25 15:49 | disposition left against medical advice (07) ==
PROVIDERS: Emergency Provider Family Medicine; PCP Internal Medicine
DX: Z53.21 Procedure and treatment not carried out due to patient leaving prior to being seen by health care provider (principal)
CPT/HCPCS: 93005; 99281

== ENCOUNTER 2020-02-26 07:32 | Emergency (ER) | payer MEDICAID, SELFPAY ==
[2020-02-26 07:33] VITALS: BP 121/73; PULSE 75; RESP 19; TEMP 36.8; O2SAT 95; BMI 33.4
--- NOTE | 2020-02-26 07:40 | CT_ITS ---
WS: [id number] CT head wo con* [id number] REASON FOR EXAM: neuro symptoms IV CONTRAST ADMINISTERED: Noncontrast TOTAL EXAM DLP: 750.[address] scans at [facility] use at least one of these dose optimization techniques: automat ed exposure control; mA and/or kV adjustment per patient size (includes targeted exams where dose is matched to clinical indication); or iterative reconstruction. FINDINGS: Bony calvarium is intact. No midline shift or other significant mass effect. No findings of intracranial hemorrhage. No focal brain parenchymal abnormality. Ventricular system of normal volume. Mild atrophy, symmetric. CT/CT head wo con* [id number] IMPRESSION: No acute intracranial abnormality identified.
--- NOTE | 2020-02-26 07:42 | XR_ITS ---
WS: [id number] XR chest 1V portable [id number] REASON FOR EXAM: stroke symptoms, chest pain FINDINGS: The chest is unchanged compared to previous examination of 10/13/2019. The heart is at the upper limits of normal in size. Calcified granulomatous changes in both lungs. No active pulmonary parenchymal pleural disease. Mild changes of degenerative spondylosis in the mid and lower thoracic spine. XR/XR chest 1V portable [id number] IMPRESSION: No acute chest abnormality.
--- NOTE | 2020-02-26 07:42 | ECG_ITS ---
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: : 1960 Requested By: Libia Bradford Order Number: [id number] Reading MD: SHAHRIAR SOTELO Measurements Intervals [place] Rate: 75 P: 52 DC: 169 QRS: 22 QRSD: 79 T: 49 QT: 380 QTc: 425 Interpretive Statements SINUS RHYTHM LOW QRS VOLTAGE IN PRECORDIAL LEADS [QRS DEFLECTION < 1.0 mV IN CHEST LEADS] POSSIBLE RIGHT VENTRICULAR CONDUCTION DELAY [RSR (QR) IN V1/V2] NONSPECIFIC T-WAVE ABNORMALITY Compared to ECG 02/25/2020 14:07:02 T-wave abnormality now present Electronically Signed On 02-27-2020 19:30:42 TUNA PURSE SEINER by SHAHRIAR SOTELO [id number]
[2020-02-26 07:45] VITALS: O2SAT 95
--- NOTE | 2020-02-26 07:47 | PC.NURSE ---
Patient blood glucose is 422, doctor and triage nurse were notified
[2020-02-26 07:50] LABS: Glucose Point of Care 422 mg/dL (70-110)
--- NOTE | 2020-02-26 07:53 | ED_ITS ---
HPI - Neuro Symptoms/Deficit General: Chief Complaint: Neuro Symptoms/Deficit Stated Complaint: TINGLING IN EXTREMITIES/ NOT FEELING WELL Time Seen by Provider: 02/26/20 07:42 History of Present Illness: HPI Narrative: This patient is a 59-year-old female who comes in today with numbness on her left side. She says these symptoms started on Sunday and they began with numbness in her little finger and ring finger on the left hand. She said gradually day by day the symptoms increased and spread to where she has numbness on her entire left side now. On Sunday she had a severe headache but that has since resolved. She says she has just a mild headache now. She denies difficulty with her vision. She reports some slurred speech and facial droop. She said her family noted that. She apparently saw her primary care doctor on Sunday and she thought she was having a reaction to stress. The patient did come into the ER yesterday but left from the waiting room due to a long wait time. She said she is having trouble getting around and a friend stayed with her last night to help her. She has had a prior stroke on the left side of her body. She said that with therapy everything had gone back to normal. She has a history of A. fib and is on api xaban. She is a diabetic and comes in today with a blood sugar over 400. She also has a history of migraines. Onset (ago): day(s) (5) Location: speech, left face, dysarthria, left arm, left leg, ataxia, altered and other (Headache) History of same: Yes Severity: moderate Quality: weak, numb, tingling and constant Relieving factors: none Exacerbating factors: none Context: gradual onset On Anticoagulants: Yes Associated symptoms: Reports headache(s) and nausea; Deny chest pain or malaise Review of Systems General: Reports: 10 or more systems reviewed and unremarkable except in HPI and below Const: Denies: fever(s), chills, fatigue or malaise Eyes: Denies: change in vision ENMT: Denies: odynophagia Card: Denies: chest pain or swelling of feet/ankles Resp: Denies: dyspnea, productive cough or non-productive cough GI: Reports: nausea : Denies: flank pain or difficulty voiding Musc: Denies: neck pain or back pain Skin/Breast: Denies: rash Neuro: Reports: headache(s) Robby/Lymph: Denies: easy bruising or easy bleeding PFSH ED PFSH: Medical History Anticoagulation adequate with anticoagulant therapy Chronic migraine without aura, intractable, with status migrainosus CVA (cerebrovascular accident) Diabetes GERD (gastroesophageal reflux disease) History of atrial fibrillation Hypertension Hypothyroidism Major depressive disorder, recurrent, moderate Migraine She has tried beta-blockers antidepressant anticonvulsant NSAIDs and Botox Peripheral vascular disease Status post placement of implantable loop recorder 2009 Surgical History H/O colonoscopy H/O esophagogastroduodenoscopy S/P Botox injection Family History Other CAD (coronary artery disease) Hypertension Social History Smoking and tobacco status: never smoked Alcohol intake: never Household members: family Housing: House NIH stroke score NIHSS: Level Of Consciousness - 1a: 0 Level Of Consciousness Questions - 1b: Both Correct (Answered correctly but was slow to do so and had to be reoriented) Level Of Consciousness Commands - 1c: Both Correct Best Gaze - 2: Normal Visual [place] - 3: No Visual Loss Facial Palsy - 4: Minor Paralysis Motor Arm Right - 5: No Drift Motor Arm Left - 5: No Drift Motor Leg Right - 6: No Drift Motor Leg Left - 6: No Drift Limb Ataxia - 7: Present In One Limb (Left lower extremity with mild ataxia on [id number] testing) Sensory - 8: Mild To Moderate Loss Best Language - 9: No Aphasia Dysarthia - 10: Mild/Moderate Dysarthia Extinction And Inattention - 11: 0 Score: Total Score: 4 Physical Exam Const: COMMON NORMALS: no acute distress, no limitations and alert GENERAL APPEARANCE: cooperative and comfortable HENMT: HEAD & SCALP: normal to inspection FACE & SINUS: normal facial exam Eye: GENERAL EYE: appearance normal, both eyes and all related structures Neck/C-Spine: COMMON NORMALS: supple, no meningeal signs and no JVD Chest: COMMONS NORMALS: normal inspection of the chest Resp: COMMON NORMALS: normal respiratory effort, No use of accessory muscles and clear to auscultation bilaterally AUSCULTATION: clear to auscultation bilaterally Cardio: COMMON NORMALS: no JVD, regular rate, regular rhythm and No murmurs present (Cardio) RATE: regular rate RHYTHM: regular rhythm GI: COMMON NORMALS: Normal to inspection, nondistended, normoactive bowel sounds present, Soft to palpation and non-tender INSPECTION: Yes normal to inspection AUSCULTATION: Yes normoactive bowel sounds PALPATION: Yes Soft to palpation Back/Pelvis: COMMON NORMALS: thoracic and lumbar spine normal to inspection Extremity: COMMON NORMALS: normal to inspection Neuro: SENSORIUM/ORIENTATION: Yes alert and Yes other (Oriented but slow to answer and requiring redirection) MENINGEAL SIGNS: Yes no meningeal signs COORDINATION/BALANCE: [id number] test normal and No [id number] test normal (Abnormal on the left) SPEECH: abnormal speech Details: slurred (Slightly) GAIT: Yes Unable to assess gait SENSORY EXAM: Yes other (Reports decreased sensation on the left side of her body entirety) MOTOR EXAM: 5/5 motor strength present throughout COORDINATION: [id number] test normal and sute-by-sbyb test abnormal (Abnormal on the left) Psych: COMMON NORMALS: mental status grossly normal, cooperative and normal affect Skin: COMMON NORMALS: no rashes or lesions noted and turgor normal GENERAL SKIN EXAM: no rashes or lesions noted and turgor normal Course ED course: Patient with a basically normal neuro exam except for some mild weakness and ataxia in the left leg. This may be related to her prior stroke. She appeared have a slight facial droop on the left and she said that was also present from her prior stroke. Her blood sugar was markedly elevated. She was hypokalemic. After IV fluids, insulin, potassium and magnesium IV, she had improvement in her symptoms. Her headache was gone as well as her numbness. She said that when she saw Dr. Fernandes on Sunday she was told that her blood sugar was up. She had been on diabetes medicine in the past but had been able to come off of it. Dr. Fernandes prescribed her some Metformin for the elevated blood sugar and she has not been able to pick it up at the pharmacy yet. She will plan to get it today and start it. I spoke to Dr. Fernandes to make sure she was comfortable with our plan and was aware of what was going on with the patient. She has an appointment to see her again early next week and the patient is comfortable going home. She can keep that follow-up appointment. We discussed return precautions as well. Vital Signs: Vital signs: Vital Signs Temperature 98.3 F 02/26/20 07:33 Pulse Rate 68 02/26/20 10:53 Respiratory Rate 18 02/26/20 10:53 Blood Pressure 127/83 02/26/20 10:53 Pulse Oximetry 95 02/26/20 10:53 MDM - Neuro Symptoms/Deficit Lab Data: Labs: Lab Results 02/26/20 02/26/20 02/26/20 Range/Units 07:41 08:09 08:09 WBC 6.8 (4.0-10.0) 10^3/ uL RBC 4.62 (4.1-5.3) 10^6/u L Hgb 13.6 (11.5-15.3) g/dL Hct 40.6 (37.0-47.0) % MCV 87.9 (81-99) fL MCH 29.4 (28.0-34.0) pg MCHC 33.5 (30.0-36.0) g/dL RDW 11.6 L (12.1-15.1) % Plt Count 213 (130-400) 10^3/c mm MPV 10.2 (7.4-10.4) fL Neut % (Auto) 61.0 % Lymph % (Auto) 27.2 % [place] % (Auto) 7.4 % Eos % (Auto) 3.7 % Baso % (Auto) 0.6 % Neut # (Auto) 4.14 (1.8-7.7) 10^3/u L Lymph # (Auto) 1.9 (0.8-4.8) 10^3/u L [place] # (Auto) 0.5 (0.2-0.9) 10^3/u L Eos # (Auto) 0.3 (0.0-0.8) 10^3/u L Baso # (Auto) 0.0 (0.0-0.1) 10^3/u L Nucleated RBC % (a uto) 0 % Nucleated RBCs # 0.0 /100WBC PT 14.30 (12.1-14.9) SECO NDS INR 1.07 (0.8-1.2) APTT 33.1 (23.9-36.7) SECO NDS Sodium (136-145) mmol/L Potassium (3.5-5.1) mmol/L Chloride (98-107) mmol/L Carbon Dioxide (22-29) mmol/L Anion Gap (5-19) BUN (6-20) mg/dL Creatinine (0.5-0.9) mg/dL GFR Calculation (90-130) mL/min Glucose (65-115) mg/dL POC Glucose 422 (70-110) mg/dL Calculated Osmolal ity (285-295) mOsm/k g Calcium (8.5-10.5) mg/dL Magnesium (1.7-2.3) mg/dL Total Bilirubin (0.15-1.2) mg/dL AST (0-32) U/L ALT (0-33) U/L Alkaline Phosphata se (35-105) IU/L Troponin T Baselin e (0-10) ng/L Troponin T 120 Min [place] (0-10) ng/L Delta Troponin T (0-10) ABS# Total Protein (6.6-8.7) g/dL Albumin (3.5-5.2) g/dL Globulin (1.3-4.6) g/dL Urine Color (Yellow) Urine Appearance (CLEAR) Urine pH (5-7) Ur Specific Gravit y (1.005-1.030) Urine Protein (Negative) Urine Glucose (UA) (Normal) Urine Ketones (Negative) Urine Blood (Negative) Urine Nitrate (Negative) Urine Bilirubin (Negative) Urine Urobilinogen (Negative) mg/dL Ur Leukocyte [place] ase (Negative) 02/26/20 02/26/20 02/26/20 Range/Units 08:09 08:09 08:09 WBC (4.0-10.0) 10^3/ uL RBC (4.1-5.3) 10^6/u L Hgb (11.5-15.3) g/dL Hct (37.0-47.0) % MCV (81-99) fL MCH (28.0-34.0) pg MCHC (30.0-36.0) g/dL RDW (12.1-15.1) % Plt Count (130-400) 10^3/c mm MPV (7.4-10.4) fL Neut % (Auto) % Lymph % (Auto) % [place] % (Auto) % Eos % (Auto) % Baso % (Auto) % Neut # (Auto) (1.8-7.7) 10^3/u L Lymph # (Auto) (0.8-4.8) 10^3/u L [place] # (Auto) (0.2-0.9) 10^3/u L Eos # (Auto) (0.0-0.8) 10^3/u L Baso # (Auto) (0.0-0.1) 10^3/u L Nucleated RBC % (a uto) % Nucleated RBCs # /100WBC PT (12.1-14.9) SECO NDS INR (0.8-1.2) APTT (23.9-36.7) SECO NDS Sodium 134 L (136-145) mmol/L Potassium 3.1 L (3.5-5.1) mmol/L Chloride 97 L (98-107) mmol/L Carbon Dioxide 26 (22-29) mmol/L Anion Gap 14.1 (5-19) BUN 13 (6-20) mg/dL Creatinine 0.8 (0.5-0.9) mg/dL GFR Calculation 73.4 L (90-130) mL/min Glucose 466 H (65-115) mg/dL POC Glucose (70-110) mg/dL Calculated Osmolal ity 299 H (285-295) mOsm/k g Calcium 8.8 (8.5-10.5) mg/dL Magnesium 1.9 (1.7-2.3) mg/dL Total Bilirubin 0.2 (0.15-1.2) mg/dL AST 54 H (0-32) U/L ALT 65 H (0-33) U/L Alkaline Phosphata se 102 (35-105) IU/L Troponin T Baselin e 6 (0-10) ng/L Troponin T 120 Min [place] (0-10) ng/L Delta Troponin T (0-10) ABS# Total Protein 6.7 (6.6-8.7) g/dL Albumin 4.2 (3.5-5.2) g/dL Globulin 2.5 (1.3-4.6) g/dL Urine Color (Yellow) Urine Appearance (CLEAR) Urine pH (5-7) Ur Specific Gravit y (1.005-1.030) Urine Protein (Negative) Urine Glucose (UA) (Normal) Urine Ketones (Negative) Urine Blood (Negative) Urine Nitrate (Negative) Urine Bilirubin (Negative) Urine Urobilinogen (Negative) mg/dL Ur Leukocyte [place] ase (Negative) 02/26/20 02/26/20 02/26/20 Range/Units 09:22 10:01 11:54 WBC (4.0-10.0) 10^3/ uL RBC (4.1-5.3) 10^6/u L Hgb (11.5-15.3) g/dL Hct (37.0-47.0) % MCV (81-99) fL MCH (28.0-34.0) pg MCHC (30.0-36.0) g/dL RDW (12.1-15.1) % Plt Count (130-400) 10^3/c mm MPV (7.4-10.4) fL Neut % (Auto) % Lymph % (Auto) % [place] % (Auto) % Eos % (Auto) % Baso % (Auto) % Neut # (Auto) (1.8-7.7) 10^3/u L Lymph # (Auto) (0.8-4.8) 10^3/u L [place] # (Auto) (0.2-0.9) 10^3/u L Eos # (Auto) (0.0-0.8) 10^3/u L Baso # (Auto) (0.0-0.1) 10^3/u L Nucleated RBC % (a uto) % Nucleated RBCs # /100WBC PT (12.1-14.9) SECO NDS INR (0.8-1.2) APTT (23.9-36.7) SECO NDS Sodium (136-145) mmol/L Potassium (3.5-5.1) mmol/L Chloride (98-107) mmol/L Carbon Dioxide (22-29) mmol/L Anion Gap (5-19) BUN (6-20) mg/dL Creatinine (0.5-0.9) mg/dL GFR Calculation (90-130) mL/min Glucose (65-115) mg/dL POC Glucose 265 (70-110) mg/dL Calculated Osmolal ity (285-295) mOsm/k g Calcium (8.5-10.5) mg/dL Magnesium (1.7-2.3) mg/dL Total Bilirubin (0.15-1.2) mg/dL AST (0-32) U/L ALT (0-33) U/L Alkaline Phosphata se (35-105) IU/L Troponin T Baselin e (0-10) ng/L Troponin T 120 Min [place] 6.00 (0-10) ng/L Delta Troponin T 0 (0-10) ABS# Total Protein (6.6-8.7) g/dL Albumin (3.5-5.2) g/dL Globulin (1.3-4.6) g/dL Urine Color Yellow (Yellow) Urine Appearance Clear (CLEAR) Urine pH 6.0 (5-7) Ur Specific Gravit y 1.010 (1.005-1.030) Urine Protein Neg (Negative) Urine Glucose (UA) 4+ H (Normal) Urine Ketones Negative (Negative) Urine Blood Neg (Negative) Urine Nitrate Negative (Negative) Urine Bilirubin Neg (Negative) Urine Urobilinogen Norm (Negative) mg/dL Ur Leukocyte [place] ase Negative (Negative) EKG Data^: EKG 1: EKG interpretation date: 02/26/20 EKG interpretation time: 07:53 Interpretation: Sinus rhythm with a rate of 75. Q waves in 3 and aVF. Some T wave flattening. No specific ischemic changes. Discharge Plan Discharge Patient Disposition: Home Clinical Impression: Acute hyperglycemia, Numbness, Acute hypokalemia Condition: Stable Prescriptions: No Action tizanidine 2 mg tablet 2 mg PO BID PRNRF: 0 Abilify 5 mg tablet 2.5 mg PO DAILY 30 Days Qty: 30 RF: 2 duloxetine 60 mg capsule,delayed release(DR/EC) 120 mg PO DAILY Qty: 60 RF: 2 lorazepam 0.5 mg tablet 0.5 mg PO BID Qty: 60 RF: 2 melatonin 3 mg capsule 3 mg PO .at bed Qty: 30 RF: 2 Seroquel 200 mg tablet 150 mg PO .HS Qty: 30 RF: 2 trazodone 100 mg tablet 100 mg PO .HS Qty: 30 RF: 2 pantoprazole 40 mg tablet,delayed release (DR/EC) 40 mg PO DAILY RF: 0 Eliquis 5 mg tablet 5 mg PO BID RF: 0 topiramate [Topamax] 100 mg tablet 100 mg PO BID Qty: 60 RF: 3 Vitamin D3 25 mcg (1,000 unit) capsule 1,000 unit PO DAILY Qty: 30 RF: 1 loperamide [Imodium A-D] 2 mg Capsule 2 mg PO PRN PRN (Reason: Diarrhea) RF: 0 levothyroxine 50 mcg Tablet 50 mcg PO DAILY RF: 0 bismuth subsalicylate [Pepto-Bismol] 262 mg/15 mL Suspension 524 mg PO Q1H PRN (Reason: Stomach Upset) RF: 0 docusate sodium [Colace] 100 mg Capsule 100 mg PO BID RF: 0 montelukast [Singulair] 10 mg Tablet 10 mg PO DAILY RF: 0 albuterol sulfate [ProAir HFA] 90 mcg/actuation Hfa Aerosol Inhaler See Rx Instructions .ROUTE .COMPLEX RF: 0 fluticasone propionate 50 mcg/actuation [place],Suspension 1 spray INTRANASAL DAILY RF: 0 1 tab PO DAILY RF: 0 potassium chloride 20 mEq tablet extended release 20 meq PO DAILY RF: 0 Tylenol 325 mg tablet 325 mg PO QID PRN (Reason: Pain) RF: 0 Imitrex 100 mg tablet 100 mg PO Q2H PRN (Reason: UNKNOWN) RF: 0 metoprolol tartrate 50 mg Tablet 50 mg PO BID 30 Days Qty: 30 RF: 0 rosuvastatin 10 mg tablet 20 mg PO DAILY 30 Days Qty: 30 RF: 0 Discharge Orders: Discharge Order (Routine); Ordered 02/26/20 Ordered By: Libia Radford Referrals: Susi Pratt MD [Primary Care Provider] - Discharge Diet: Usual diet Discharge Activity: Resume usual activity Patient Instructions: Diabetic Hyperglycemia (ED) Activity Restrictions/Additional Instructions: Make sure to get your Metformin prescription and start taking it right away. Return to the ER if new or worse symptoms. Follow-up with Dr. Pratt as scheduled next week. Coding Level of Care Code ED Process Engineer for Chg Fwd Exam Comprehensive
[2020-02-26 08:19] LABS: Basophils % 0.6 %; Eosinophils # 0.3 10^3/uL (0.0-0.8); Eosinophils % 3.7 %; Hematocrit 40.6 % (37.0-47.0); Hemoglobin 13.6 g/dL (11.5-15.3); Lymphocytes # 1.9 10^3/uL (0.8-4.8); Lymphocytes % 27.2 %; Mean Corpuscular HGB Conc 33.5 g/dL (30.0-36.0); Mean Corpuscular Hemoglobin 29.4 pg (28.0-34.0); Mean Corpuscular Volume 87.9 fL (81-99); Mean Platelet Volume 10.2 fL (7.4-10.4); Monocytes # 0.5 10^3/uL (0.2-0.9); Monocytes % 7.4 %; Neutrophils # 4.14 10^3/uL (1.8-7.7); Nucleated Red Blood Cells % 0 %; Platelet Count 213 10^3/cmm (130-400); Red Blood Count 4.62 10^6/uL (4.1-5.3); Red Cell Distribution Width 11.6 % (12.1-15.1); White Blood Count 6.8 10^3/uL (4.0-10.0)
[2020-02-26 08:39] LABS: INR 1.07 (0.8-1.2)
[2020-02-26 08:40] LABS: Partial Thromboplastin Time 33.1 SECONDS (23.9-36.7)
[2020-02-26 08:47] LABS: Alanine Aminotransferase 65 U/L (0-33); Albumin Level 4.2 g/dL (3.5-5.2); Alkaline Phosphatase 102 IU/L (35-105); Anion Gap 14.1 (5-19); Aspartate Amino Transferase 54 U/L (0-32); Blood Urea Nitrogen 13 mg/dL (6-20); Calcium 8.8 mg/dL (8.5-10.5); Carbon Dioxide 26 mmol/L (22-29); Chloride 97 mmol/L (98-107); Globulin 2.5 g/dL (1.3-4.6); Glomerular Filtration Rate 73.4 mL/min (90-130); Glucose 466 mg/dL (65-115); Osmolality Calculated 299 mOsm/kg (285-295); Potassium 3.1 mmol/L (3.5-5.1); Sodium 134 mmol/L (136-145); Total Bilirubin 0.2 mg/dL (0.15-1.2); Total Protein 6.7 g/dL (6.6-8.7); Troponin(5th) Baseline 6 ng/L (0-10)
[2020-02-26] MEDS: sodium chloride 0.9% 1,000 ML 999 ML IV (09:23)
[2020-02-26 09:24] LABS: Magnesium 1.9 mg/dL (1.7-2.3)
[2020-02-26] MEDS: magnesium sulfate premix 2 GM/50 ML PIGGYBACK IV (09:24)
[2020-02-26] MEDS: insulin regular-human 100 units/1 mL 10 UNIT IVP (09:24)
[2020-02-26] MEDS: potassium chloride premix 100 ML 50 MEQ IV (09:24)
[2020-02-26 09:30] LABS: Add Urine Microscopic? NO
[2020-02-26 09:32] VITALS: BP 106/57; PULSE 71; RESP 17; O2SAT 95
[2020-02-26 09:36] LABS: Bilirubin Urine Neg (Negative); Blood Urine Neg (Negative); Glucose Urine UA 4+ (Normal); Ketones Urine Negative (Negative); Leukocyte Esterase Urine Negative (Negative); Nitrate Urine Negative (Negative); Protein Urine Neg (Negative); Urine Appearance Clear (CLEAR); Urine Color Yellow (Yellow); Urobilinogen Urine Norm (Negative)
--- NOTE | 2020-02-26 09:43 | ECG_ITS ---
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1960 Requested By: Libia Bradford Order Number: [id number] Reading MD: SHAHRIAR SOTELO Measurements Intervals [place] Rate: 66 P: 53 AR: 175 QRS: 27 QRSD: 77 T: 53 QT: 405 QTc: 427 Interpretive Statements SINUS RHYTHM LOW QRS VOLTAGE IN PRECORDIAL LEADS [QRS DEFLECTION < 1.0 mV IN CHEST LEADS] POSSIBLE RIGHT VENTRICULAR CONDUCTION DELAY [RSR (QR) IN V1/V2] NONSPECIFIC T-WAVE ABNORMALITY Compared to ECG 02/26/2020 07:45:04 No significant changes Electronically Signed On 02-27-2020 19:34:55 RATE SETTER by SHAHRIAR SOTELO [email or web address] LUXURY BRAND GROUPkettering [id number]
[2020-02-26 10:48] LABS: Troponin 5 2HR Delta 0 ABS# (0-10)
[2020-02-26 10:53] VITALS: BP 127/83; PULSE 68; RESP 18; O2SAT 95
[2020-02-26 11:56] LABS: Glucose Point of Care 265 mg/dL (70-110)
[2020-02-26 12:28] VITALS: BP 117/65; PULSE 70; RESP 18; O2SAT 93
== END 2020-02-26 12:28 | disposition home or self-care (01) ==
PROVIDERS: Emergency Provider Emergency Medicine; PCP Internal Medicine
DX: R20.0 Anesthesia of skin (principal); E11.65 Type 2 diabetes mellitus with hyperglycemia; E87.6 Hypokalemia; Z79.01 Long term (current) use of anticoagulants; Z86.73 Personal history of transient ischemic attack (TIA), and cerebral infarction without residual deficits; I10 Essential (primary) hypertension; I48.91 Unspecified atrial fibrillation; I73.9 Peripheral vascular disease, unspecified
CPT/HCPCS: 12345; 36415; 36416; 70450; 71045; 80053; 81003; 82962; 83735; 84484; 85025; 85610; 85730; 93005; 96365; 96366; 96367; 96375; 99284; J1815; J3475; J3480; J7030

== ENCOUNTER → 2020-03-11 09:55 | Outpatient (BNVA) | payer MEDICAID, SELFPAY | PROVIDERS: PCP Internal Medicine; Visit Provider Specialist | DX: G43.711 Chronic migraine without aura, intractable, with status migrainosus (principal); Z79.01 Long term (current) use of anticoagulants | CPT/HCPCS: 64615; J0585 ==

== ENCOUNTER → 2020-03-23 07:41 | Outpatient (BNVA) | payer MEDICAID, SELFPAY | PROVIDERS: PCP Internal Medicine; Visit Provider Nurse Practitioner | DX: F33.1 Major depressive disorder, recurrent, moderate (principal); F41.1 Generalized anxiety disorder | CPT/HCPCS: 99213 ==

== ENCOUNTER 2020-06-18 14:45 | Outpatient (CLI) | payer MEDICAID, SELFPAY ==
--- NOTE | 2020-06-18 14:47 | US_ITS ---
WS: [id number] INDICATION: Lump swelling left neck TECHNIQUE: Ultrasound soft tissue FINDINGS: Ultrasound soft tissue area of concern left shoulder/neck. In the area of concern is a comp eddie hypoechoic ovoid lesion measuring 2.4 x1.9 x 1.7 cm. This has a semisolid appearance. No internal vascularity. This is nonspecific but differential considerations include enlarged suppurative or nec rotic lymph node versus phlegmon/abscess if associated cellulitis. Additional adjacent small microcys tic lesion measuring 1.2 x 0.9 x 0.4 cm Just medial to the area of concern is an additional similar-appearing hypoechoic lesion which has a c omplex appearance with some peripheral vascularity. 1.5 x 1.1 x 1.2 CM. US/US soft tissue/extremity 18481 IMPRESSION: 1. The area of concern left neck are several hypoechoic complex ovoid lesions nonspecific in appearance. Recommend further evaluation with contrast-enhanced neck CT. 2. Findings are nonspecific but differential considerations include enlarged n ecrotic or suppurative lymph nodes versus abscess/phlegmon if recent infection in this area
== END 2020-06-18 14:46 | disposition home or self-care (01) ==
LOC: US 14:46
PROVIDERS: PCP Internal Medicine; Visit Provider Nurse Practitioner Family
DX: R22.1 Localized swelling, mass and lump, neck (principal)
CPT/HCPCS: 76882

== ENCOUNTER → 2020-07-14 07:38 | Outpatient (BNVA) | payer MEDICAID, SELFPAY | PROVIDERS: PCP Internal Medicine; Visit Provider Nurse Practitioner | DX: F33.1 Major depressive disorder, recurrent, moderate (principal) | CPT/HCPCS: 99214 ==

== ENCOUNTER → 2020-10-11 07:24 | Outpatient (BNVA) | payer MEDICAID, SELFPAY | PROVIDERS: PCP Internal Medicine; Visit Provider Nurse Practitioner | DX: F33.1 Major depressive disorder, recurrent, moderate (principal) | CPT/HCPCS: 99214 ==

== ENCOUNTER → 2021-02-07 07:37 | Outpatient (BNVA) | payer MEDICAID, SELFPAY | PROVIDERS: PCP Internal Medicine; Visit Provider Nurse Practitioner | DX: F33.1 Major depressive disorder, recurrent, moderate (principal) | CPT/HCPCS: 99214 ==

== ENCOUNTER 2022-10-02 15:10 | Oncology outpatient (recurring) (ONCR) | payer MEDICAID, SELFPAY ==
[2022-10-02 16:22] LABS: Basophils % 0.2 %; Eosinophils # 0.1 10^3/uL (0.0-0.8); Eosinophils % 2.4 %; Hemoglobin 12.9 g/dL (11.5-15.3); Lymphocytes # 1.4 10^3/uL (0.8-4.8); Lymphocytes % 33.6 %; Mean Corpuscular HGB Conc 32.3 g/dL (30.0-36.0); Mean Corpuscular Hemoglobin 29.1 pg (28.0-34.0); Mean Corpuscular Volume 90.1 fl (81-99); Mean Platelet Volume 9.7 fL (7.4-10.4); Monocytes # 0.4 10^3/uL (0.2-0.9); Monocytes % 8.2 %; Neutrophils # 2.35 10^3/uL (1.8-7.7); Neutrophils % 55.4 %; Nucleated Red Blood Cells % 0 %; Platelet Count 152 10^3/cmm (130-400); Red Blood Count 4.44 10^6/uL (4.1-5.3); Red Cell Distribution Width 12.2 % (12.1-15.1); White Blood Count 4.3 10^3/uL (4.0-10.0)
[2022-10-02 17:01] LABS: Alanine Aminotransferase 13 U/L (0-33); Albumin Level 4.2 g/dL (3.5-5.2); Alkaline Phosphatase 84 U/L (35-105); Anion Gap 11.9 (5-19); Aspartate Amino Transferase 15 U/L (0-32); Blood Urea Nitrogen 15 mg/dL (8-23); Carbon Dioxide 21 mmol/L (22-29); Chloride 109 mmol/L (98-107); Globulin 2.2 g/dL (1.3-4.6); Glomerular Filtration Rate 72.7 mL/min (90-130); Glucose 87 mg/dL (65-115); Lactate Dehydrogenase 159 U/L (135-214); Osmolality Calculated 286 mOsm/kg (285-295); Potassium 3.9 mmol/L (3.5-5.1); Sodium 138 mmol/L (136-145); Thyroid Stimulating Hormone 1.23 uIU/mL (0.27-4.20); Total Bilirubin 0.3 mg/dL (0.15-1.2); Total Protein 6.4 g/dL (6.6-8.7); Vitamin B12 369 pg/mL (232-1245)
== END 2022-10-20 23:59 | disposition home or self-care (01) ==
PROVIDERS: PCP Internal Medicine; Visit Provider Internal Medicine Medical Oncology
DX: C85.21 Mediastinal (thymic) large B-cell lymphoma, lymph nodes of head, face, and neck (principal)
CPT/HCPCS: 36591; 80053; 82607; 83615; 84443; 85025; 99204; J1642

== ENCOUNTER 2022-10-30 13:53 | Oncology outpatient (recurring) (ONCR) | payer MEDICAID, SELFPAY ==
[2022-10-30 14:19] VITALS: BP 156/82; PULSE 73; RESP 18; TEMP 36.7; O2SAT 96
== END 2022-11-20 23:59 | disposition home or self-care (01) ==
PROVIDERS: PCP Internal Medicine; Visit Provider Internal Medicine Medical Oncology
DX: Z45.2 Encounter for adjustment and management of vascular access device (principal)
CPT/HCPCS: 96523; J1642

== ENCOUNTER 2022-11-03 13:25 | Outpatient (CLI) | payer MEDICAID, SELFPAY ==
[2022-11-03] MEDS: iohexol 350 mg/mL 500 mL Btl (per mL) IV (13:34)
[2022-11-03] MEDS: iohexol 350 mg/mL 500 mL Btl (per mL) PO (13:35)
--- NOTE | 2022-11-03 14:00 | CT_ITS ---
WS: [id number] CT scan of the chest With IV contrast, CT scan of the abdomen and pelvis with IV contrast and oral contrast. Additional two-dimensional coronal and sagittal reconstruction was performed. 11/03/2022 Clinical Data: follow up for lymphoma Comparison: CT angiogram chest, 10/13/2019 DLP: 1180.[address] scans at [facility] use at least one of these dose optimization techniques: automated e xposure control; mA and/or kV adjustment per patient size (includes targeted exams where dose is matc hed to clinical indication); or iterative reconstruction. Findings: Chest: No nodules, masses or effusions are seen. The left thyroid gland is absent. There is a right-sided in fusion catheter with the distal tip in the superior vena cava. Minimal posterior atelectasis is seen. The heart size is normal with no pericardial effusion. The pulmonary arterial system and thoracic aorta demonstrate no abnormalities or dilatations. There is no axillary or significant mediastinal adenopathy. There is a small hiatal hernia. Abdomen/pelvis: The gallbladder is absent. The liver, adrenal glands and pancreas are normal. The spleen is slightly enlarged at 14.1 cm The kidneys show equal bilateral contrast excretion with no cyst or masses. No hydronephrosis or gertrude l calculi are seen. The abdominal aorta is normal in size. No appendicitis or diverticulitis is seen. Oral contrast is in the stomach, small bowel and colon and there is no bowel dilatation. No abscess, adenopathy, ascites, mass, obstruction or free air is seen . The bladder is unremarkable. The uterus is absent. No inguinal hernia is seen. The bones of the lower thorax, lumbar spine, pelvis, and hips are normal. CT/CT chest abdpel w/*[id number] Impression: 1. Negative for acute cardiopulmonary disease. 2. Negative for acute abdominal pelvic abnormalities. 3. No evidence of recurrent lymphoma.
== END 2022-11-03 13:26 | disposition home or self-care (01) ==
LOC: RAD 13:27
PROVIDERS: PCP Internal Medicine; Visit Provider Internal Medicine Medical Oncology
DX: C85.21 Mediastinal (thymic) large B-cell lymphoma, lymph nodes of head, face, and neck (principal)
CPT/HCPCS: 71260; 74177; Q9967

== ENCOUNTER 2022-11-27 14:16 | Oncology outpatient (recurring) (ONCR) | payer MEDICAID, SELFPAY ==
[2022-11-27 14:49] VITALS: BP 148/90; PULSE 76; RESP 16; TEMP 36.1; O2SAT 96
== END 2022-12-21 23:59 | disposition home or self-care (01) ==
LOC: ONCMED 14:17
PROVIDERS: PCP Internal Medicine; Visit Provider Internal Medicine Medical Oncology
DX: Z53.9 Procedure and treatment not carried out, unspecified reason (principal)
CPT/HCPCS: J1642

== ENCOUNTER 2022-12-28 14:49 | Oncology outpatient (recurring) (ONCR) | payer MEDICAID, SELFPAY ==
[2022-12-28 14:56] VITALS: BP 156/98; PULSE 68; RESP 18; TEMP 36.7; O2SAT 97
== END 2023-01-20 23:59 | disposition home or self-care (01) ==
PROVIDERS: PCP Internal Medicine; Visit Provider Internal Medicine Medical Oncology
DX: Z45.2 Encounter for adjustment and management of vascular access device (principal)
CPT/HCPCS: 96523; J1642

== ENCOUNTER 2022-12-29 10:50 | Outpatient (CLI) | payer MEDICAID, SELFPAY ==
--- NOTE | 2022-12-29 10:57 | MM_ITS ---
WS: [id number] BILATERAL SCREENING DIGITAL TOMOSYNTHESIS MAMMOGRAM WITH CAD HISTORY: SCREENING COMPARISON: 04/28/2019, 02/14/2018 Bilateral CC and MLO views with tomosynthesis and synthetic mammography submitted. Computer aided det ection analyzed. Breast composition: The breasts are heterogeneously dense, which may obscure small masses. No suspici ous masses, microcalcifications or architectural distortion. IMPRESSION: MM/[place] [id number] BI-RADS: 1-Negative FOLLOW UP: 1 Year Follow-up
== END 2022-12-29 10:51 | disposition home or self-care (01) ==
PROVIDERS: PCP Internal Medicine; Visit Provider Internal Medicine
DX: Z12.31 Encounter for screening mammogram for malignant neoplasm of breast (principal)
CPT/HCPCS: 77063; 77067

== ENCOUNTER 2023-01-24 12:40 | Oncology outpatient (recurring) (ONCR) | payer MEDICAID, SELFPAY ==
[2023-01-24 12:58] VITALS: BP 138/87; PULSE 72; RESP 16; TEMP 36.7; O2SAT 98
[2023-01-24 13:18] LABS: Basophils % 0.5 %; Eosinophils # 0.2 10^3/uL (0.0-0.8); Eosinophils % 2.9 %; Hematocrit 39.6 % (36-47); Lymphocytes # 1.4 10^3/uL (0.8-4.8); Lymphocytes % 22.7 %; Mean Corpuscular HGB Conc 33.3 g/dL (30-55); Mean Corpuscular Hemoglobin 29.3 pg (27-33); Mean Corpuscular Volume 87.8 fl (85-98); Mean Platelet Volume 9.7 fL (7.4-10.4); Monocytes # 0.5 10^3/uL (0.2-0.9); Monocytes % 7.2 %; Neutrophils # 4.15 10^3/uL (1.8-7.7); Neutrophils % 66.4 %; Nucleated Red Blood Cells % 0 %; Platelet Count 176 10^3/cmm (157-399); Red Blood Count 4.51 10^6/uL (3.85-5.65); Red Cell Distribution Width 12.5 % (12.1-15.1); White Blood Count 6.25 10^3/uL (3.29-11.43)
[2023-01-24 13:33] LABS: Alanine Aminotransferase 10 U/L (0-33); Albumin Level 4.3 g/dL (3.5-5.2); Alkaline Phosphatase 79 U/L (35-105); Anion Gap 13.3 (5-19); Aspartate Amino Transferase 13 U/L (0-32); Blood Urea Nitrogen 17 mg/dL (8-23); Calcium 8.8 mg/dL (8.5-10.5); Carbon Dioxide 22 mmol/L (22-29); Chloride 108 mmol/L (98-107); Globulin 2.5 g/dL (1.3-4.6); Glomerular Filtration Rate 72.7 mL/min (90-130); Glucose 123 mg/dL (65-115); Lactate Dehydrogenase 144 U/L (135-214); Osmolality Calculated 291 mOsm/kg (285-295); Potassium 4.3 mmol/L (3.5-5.1); Sodium 139 mmol/L (136-145); Total Bilirubin 0.3 mg/dL (0.15-1.2); Total Protein 6.8 g/dL (6.6-8.7)
== END 2023-02-20 23:59 | disposition home or self-care (01) ==
PROVIDERS: Nurse Practitioner Family; PCP Internal Medicine; Visit Provider Internal Medicine Medical Oncology
DX: C85.21 Mediastinal (thymic) large B-cell lymphoma, lymph nodes of head, face, and neck (principal); D64.9 Anemia, unspecified; R53.83 Other fatigue; R06.02 Shortness of breath; Z79.899 Other long term (current) drug therapy; Z53.9 Procedure and treatment not carried out, unspecified reason
CPT/HCPCS: 36415; 80053; 83615; 85025; 99214

== ENCOUNTER 2023-02-28 13:43 | Oncology outpatient (recurring) (ONCR) | payer MEDICAID, SELFPAY ==
[2023-02-28 13:52] VITALS: BP 146/95; PULSE 76; RESP 16; TEMP 36.6; O2SAT 95
== END 2023-03-22 23:59 | disposition home or self-care (01) ==
PROVIDERS: PCP Internal Medicine; Visit Provider Internal Medicine Medical Oncology
DX: C85.21 Mediastinal (thymic) large B-cell lymphoma, lymph nodes of head, face, and neck (principal); D64.9 Anemia, unspecified; R53.83 Other fatigue; R06.02 Shortness of breath; Z79.899 Other long term (current) drug therapy
CPT/HCPCS: J1642

== ENCOUNTER 2023-03-05 06:34 | Outpatient (CLI) | payer MEDICAID, SELFPAY ==
--- NOTE | 2023-03-05 06:45 | CT_ITS ---
WS: [id number] CT chest w con* [id number] HISTORY: COUGH CHRONIC, LYMPHOMA TECHNIQUE: Axial imaging performed through the thorax. Coronal and sagittal reformats are submitted. All CT scans at [facility] use at least one of these dose optimization techniques: automated exposure control; mA and/or kV adjustment per patient size (includes targeted exams where dose is mat ched to clinical indication); or iterative reconstruction. CONTRAST: Omnipaque 350; 100 mL IV. DLP: 467.17 mGy.cm COMPARISON: 11/03/2022 Lungs and central airway: No pulmonary mass or nodule. No pneumonia. Pleura: Normal. No pleural effusion. Heart and pericardium: Mild LEFT heart enlargement. No pericardial effusion. Mediastinum and caro: No mediastinal or hilar adenopathy. No mass. Vessels: Mild atherosclerosis aorta. No aneurysm. Pulmonary artery size is normal. No central filling defects. Chest wall and lower neck: Prior LEFT thyroidectomy. RIGHT subclavian Mediport. Upper abdomen: Small hiatal hernia. Prior cholecystectomy. Osseous structures: No destructive process. IMPRESSION: 1. No pneumonia or pneumonitis. 2. No mediastinal or hilar lymphadenopathy. 3. RIGHT subclavian Mediport and prior LEFT thyroidectomy. 4. Mild LEFT heart enlargement. 5. Prior cholecystectomy.
[2023-03-05] MEDS: iohexol 350 mg/mL 500 mL Btl (per mL) IV (07:05)
== END 2023-03-05 06:35 | disposition home or self-care (01) ==
LOC: RAD 06:34
PROVIDERS: PCP Internal Medicine; Visit Provider Internal Medicine
DX: C85.90 Non-Hodgkin lymphoma, unspecified, unspecified site (principal); R05.3 Chronic cough; I51.7 Cardiomegaly
CPT/HCPCS: 71260; Q9967

== ENCOUNTER 2023-03-28 14:08 | Oncology outpatient (recurring) (ONCR) | payer MEDICAID, SELFPAY ==
[2023-03-28 14:29] VITALS: BP 147/98; PULSE 72; RESP 16; TEMP 36.7; O2SAT 98
== END 2023-04-22 23:59 | disposition home or self-care (01) ==
PROVIDERS: PCP Internal Medicine; Visit Provider Internal Medicine Medical Oncology
DX: Z45.2 Encounter for adjustment and management of vascular access device
CPT/HCPCS: J1642

== ENCOUNTER 2023-05-02 12:26 | Oncology outpatient (recurring) (ONCR) | payer MEDICAID, SELFPAY ==
[2023-05-02 12:50] VITALS: BP 130/90; PULSE 67; RESP 16; TEMP 36.3; O2SAT 97
[2023-05-02 13:11] LABS: Basophils % 0.2 %; Eosinophils # 0.1 10^3/uL (0.0-0.8); Eosinophils % 1.5 %; Hematocrit 38.7 % (36-47); Lymphocytes # 1.4 10^3/uL (0.8-4.8); Lymphocytes % 26.1 %; Mean Corpuscular HGB Conc 33.1 g/dL (30-55); Mean Corpuscular Volume 87.8 fl (85-98); Mean Platelet Volume 9.9 fL (7.4-10.4); Monocytes # 0.4 10^3/uL (0.2-0.9); Neutrophils # 3.54 10^3/uL (1.8-7.7); Nucleated Red Blood Cells % 0 %; Platelet Count 157 10^3/cmm (157-399); Red Blood Count 4.41 10^6/uL (3.85-5.65); Red Cell Distribution Width 12.3 % (12.1-15.1); White Blood Count 5.44 10^3/uL (3.29-11.43)
[2023-05-02 13:29] LABS: Alanine Aminotransferase 11 U/L (0-33); Alkaline Phosphatase 79 U/L (35-105); Anion Gap 12.3 (5-19); Aspartate Amino Transferase 15 U/L (0-32); Blood Urea Nitrogen 13 mg/dL (8-23); Calcium 9.3 mg/dL (8.5-10.5); Carbon Dioxide 25 mmol/L (22-29); Chloride 106 mmol/L (98-107); Globulin 2.7 g/dL (1.3-4.6); Glomerular Filtration Rate 72.7 mL/min (90-130); Glucose 96 mg/dL (65-115); Lactate Dehydrogenase 153 U/L (135-214); Osmolality Calculated 288 mOsm/kg (285-295); Potassium 4.3 mmol/L (3.5-5.1); Sodium 139 mmol/L (136-145); Total Bilirubin 0.3 mg/dL (0.15-1.2); Total Protein 6.7 g/dL (6.6-8.7)
== END 2023-05-23 23:59 | disposition home or self-care (01) ==
PROVIDERS: Nurse Practitioner Family; PCP Internal Medicine; Visit Provider Internal Medicine Medical Oncology
DX: Z45.2 Encounter for adjustment and management of vascular access device (principal); C85.21 Mediastinal (thymic) large B-cell lymphoma, lymph nodes of head, face, and neck; Z79.899 Other long term (current) drug therapy
CPT/HCPCS: 36591; 80053; 83615; 85025; 99213; J1642

== ENCOUNTER → 2023-05-10 10:45 | Outpatient (BNVA) | payer MEDICAID, SELFPAY | PROVIDERS: PCP Internal Medicine; Referring Provider Internal Medicine; Visit Provider Surgery | DX: Z95.828 Presence of other vascular implants and grafts (principal) | CPT/HCPCS: 36590; 99204 ==

== ENCOUNTER 2023-05-16 07:14 | Outpatient (CLI) | payer MEDICAID, SELFPAY ==
--- NOTE | 2023-05-16 07:45 | USCV_ITS ---
Sharron Maris Age: 62 Gender: F : 1960 Exam Date: 05/16/2023 07:50 Ordering Phys: Marina Morales MD Technologist: DORINDA Exam Location: [facility] [place] Indication: A FIB, CHEST PAIN, SHORTNESS OF BREATH BP: 127 / 87 HR: 62 Rhythm: Sinus Technical Quality: Adequate MEASUREMENTS (Male / Female) Normal Values 2D ECHO LVOT Diameter 2.0 cm LV Ejection Fraction MOD 2C 59.2 % LV Ejection Fraction 2C AL 61.7 % LA Diameter 3.7 cm LA Width 3.7 cm LA Height 5.1 cm RA Width 2.8 cm RA Height 4.3 cm Aorta at Sinotubular Diameter 2.7 cm IVC Diameter 1.6 cm M-MODE Aortic Annulus Diameter 2.8 cm LA Ao Ratio MM 1.2 MV E Point Septal Separation 0.4 cm DOPPLER AV Peak Velocity 139.0 cm/s LVOT Peak Velocity 105.0 cm/s AV Area Cont Eq vti 2.7 cm squared AV Area Cont Eq pk 2.4 cm squared MV Peak Velocity 106.0 cm/s MV Area PHT 4.3 cm squared Mitral E to A Ratio 1.1 MV E' Velocity 53.0 cm/s Mitral E to MV E' Ratio 12.1 Mitral E to LV E' Lateral Ratio 11.0 Mitral E to LV E' Septal Ratio 13.4 TR Peak Velocity 187.2 cm/s TR Peak Gradient 14.0 mmHg TR Mean Velocity 155.3 cm/s TR Mean Gradient 10.0 mmHg TR Velocity Time Integral 59.5 cm TV Peak E Velocity 43.0 cm/s Right Atrial Pressure 3.0 mmHg Pulmonary Artery Systolic Pressu 17.0 mmHg PV Peak Velocity 71.0 cm/s RV Acceleration Time 0.1 s RV Ejection Time 0.3 s RV AcT/ET 0.3 FINDINGS Left Ventricle Normal left ventricular size, systolic function and wall thickness, with no regional wall motion abnormalities. Grade I/IV diastolic dysfunction (abnormal relaxation filling pattern), normal to mildly elevated filling pressures. Left ventricular ejection fraction is estimated at 60 %. Right Ventricle Normal right ventricular size and systolic function. Normal right ventricular systolic pressure. Right Atrium The right atrium is normal in size. Left Atrium The left atrium is normal in size. Mitral Valve Structurally normal mitral valve. Trace mitral valve regurgitation. Aortic Valve Structurally normal aortic valve without significant sclerosis or stenosis. There is no aortic regurgitation. Tricuspid Valve Structurally normal tricuspid valve without significant stenosis or regurgitation. Pulmonary artery systolic pressure is normal. Pulmonic Valve Pulmonic valve not well visualized. Pericardium Normal pericardium without effusion. Aorta Normal ascending aorta dimension. IVC The inferior vena cava appears normal. CONCLUSIONS Normal left ventricular size, systolic function and wall thickness, with no regional wall motion abnormalities. Grade I/IV diastolic dysfunction (abnormal relaxation filling pattern), normal to mildly elevated filling pressures. Left ventricular ejection fraction is estimated at 60 %. Structurally normal mitral valve. Trace mitral valve regurgitation. There is no change from 10/15/2019. Dr. Jean-Pierre Melendez MD (Electronically Signed) Final Date: 16 May 2023 08:58 S
== END 2023-05-16 07:15 | disposition home or self-care (01) ==
LOC: RAD 07:14
PROVIDERS: PCP Internal Medicine; Visit Provider Internal Medicine
DX: I48.91 Unspecified atrial fibrillation (principal); R94.31 Abnormal electrocardiogram [ECG] [EKG]; R00.0 Tachycardia, unspecified; Z86.79 Personal history of other diseases of the circulatory system; R06.02 Shortness of breath; I51.89 Other ill-defined heart diseases
CPT/HCPCS: 93306

== ENCOUNTER 2023-05-17 11:58 | Outpatient (CLI) | payer MEDICAID, SELFPAY ==
[2023-05-17] MEDS: iohexol 350 mg/mL 500 mL Btl (per mL) PO (12:15)
[2023-05-17] MEDS: iohexol 350 mg/mL 500 mL Btl (per mL) IV (13:11)
--- NOTE | 2023-05-17 13:30 | CT_ITS ---
WS: [id number] CT CHEST, ABDOMEN, AND PELVIS TECHNIQUE: Contrast-enhanced CT of the chest, abdomen, and pelvis with coronal and sagittal reformatt ed images. CLINICAL INFORMATION: restaging COMPARISON: CT chest 03/05/2023 and chest abdomen pelvis 11/03/2022 DLP: 1225.[address] scans at [facility] use at least one of these dose optimization techniques: automated e xposure control; mA and/or kV adjustment per patient size (includes targeted exams where dose is matc hed to clinical indication); or iterative reconstruction. CT CHEST: Lungs are well aerated. No acute pulmonary infiltrates. No focal pneumonia or pleural fluid. Lung ba ses are well aerated. No focal pneumonia or pleural fluid. No suspicious pulmonary parenchymal opacit ies. A few calcified granulomas. Normal caliber thoracic aorta. No mediastinal or hilar lymphadenopat hy. Prior LEFT thyroidectomy. CT ABDOMEN AND PELVIS: Diffuse fatty infiltration of the liver. Cholecystectomy clips. Few tiny incidental hepatic cysts. No rmal portal vein and splenic vein. Normal pancreatic parenchymal enhancement. Prior cholecystectomy. Small esophageal hiatal hernia. Spleen has decreased in size from previous today measuring 13 cm. Adr enal glands are normal. Normal renal parenchymal enhancement. No hydronephrosis. No abdominal or pelv ic lymphadenopathy. No inguinal lymphadenopathy. Normal sigmoid colon. Normal lumbar spine. IMPRESSION: 1. No evidence of recurrent or progressive disease in the chest abdomen or pelvis. 2. No adenopathy in the chest abdomen or pelvis. 3. No other suspicious findings.
== END 2023-05-17 11:59 | disposition home or self-care (01) ==
LOC: RAD 11:58
PROVIDERS: PCP Internal Medicine; Visit Provider Nurse Practitioner Family
DX: C85.10 Unspecified B-cell lymphoma, unspecified site (principal)
CPT/HCPCS: 71260; 74177; Q9967

== ENCOUNTER 2023-08-01 10:36 | Oncology outpatient (recurring) (ONCR) | payer MEDICAID, SELFPAY ==
[2023-08-01 11:01] LABS: Basophils % 0.4 %; Eosinophils # 0.1 10^3/uL (0.0-0.8); Eosinophils % 1.8 %; Hematocrit 40.5 % (36-47); Lymphocytes # 1.7 10^3/uL (0.8-4.8); Lymphocytes % 33.9 %; Mean Corpuscular HGB Conc 33.3 g/dL (30-55); Mean Corpuscular Hemoglobin 28.8 pg (27-33); Mean Corpuscular Volume 86.5 fl (85-98); Mean Platelet Volume 9.8 fL (7.4-10.4); Monocytes # 0.5 10^3/uL (0.2-0.9); Monocytes % 9.6 %; Neutrophils # 2.71 10^3/uL (1.8-7.7); Neutrophils % 54.1 %; Nucleated Red Blood Cells % 0 %; Platelet Count 196 10^3/cmm (157-399); Red Blood Count 4.68 10^6/uL (3.85-5.65); Red Cell Distribution Width 12.3 % (12.1-15.1); White Blood Count 5.01 10^3/uL (3.29-11.43)
[2023-08-01 11:18] LABS: Alanine Aminotransferase 14 U/L (0-33); Albumin Level 4.3 g/dL (3.5-5.2); Alkaline Phosphatase 90 U/L (35-105); Anion Gap 12.3 (5-19); Aspartate Amino Transferase 17 U/L (0-32); Blood Urea Nitrogen 16 mg/dL (8-23); Calcium 9.2 mg/dL (8.5-10.5); Carbon Dioxide 25 mmol/L (22-29); Chloride 107 mmol/L (98-107); Globulin 2.7 g/dL (1.3-4.6); Glomerular Filtration Rate 63.2 mL/min (90-130); Glucose 104 mg/dL (65-115); Lactate Dehydrogenase 165 U/L (135-214); Osmolality Calculated 291 mOsm/kg (285-295); Potassium 4.3 mmol/L (3.5-5.1); Sodium 140 mmol/L (136-145); Total Bilirubin 0.3 mg/dL (0.15-1.2)
== END 2023-08-21 23:59 | disposition home or self-care (01) ==
PROVIDERS: Internal Medicine; PCP Internal Medicine; Visit Provider Internal Medicine Medical Oncology
DX: Z45.2 Encounter for adjustment and management of vascular access device (principal); C85.21 Mediastinal (thymic) large B-cell lymphoma, lymph nodes of head, face, and neck; Z79.899 Other long term (current) drug therapy
CPT/HCPCS: 36415; 80053; 83615; 85025; 99214

== ENCOUNTER 2023-11-10 20:22 | Emergency (ER) | payer MEDICAID, SELFPAY ==
[2023-11-10 20:29] VITALS: BP 178/108; PULSE 79; RESP 18; TEMP 37.4; O2SAT 99; BMI 36.5
--- NOTE | 2023-11-10 20:30 | ECG_ITS ---
[facility] Test Date: 2023-11-10 Pat Name: Maris Mcdermott Department: Room: Gender: Female Final Inspector Paper: : 1960 Requested By: Marvin Walker Order Number: [id number] Reading MD: Jean-Pierre Melendez M.D. Measurements Intervals [place] Rate: 73 P: 68 [place]: 159 QRS: 61 QRSD: 77 T: 75 QT: 376 QTc: 415 Interpretive Statements SINUS RHYTHM Compared to ECG 02/26/2020 09:45:14 T-wave abnormality no longer present Electronically Signed On 11-11-2023 7:09:01 CDT by Jean-Pierre Melendez M.D. [id number] f
--- NOTE | 2023-11-10 20:30 | XRR_ITS ---
PROCEDURE INFORMATION: Exam: XR Chest Exam date and time: 11/10/2023 8:51 PM Age: 63 years old Clinical indication: Chest pressure; Prior surgery; Surgery date: 6+ months; Surgery type: Lt thyroidectomy; Patient HX: Chest pain; Hypertension TECHNIQUE: Imaging protocol: Radiologic exam of the chest. Views: 1 view. COMPARISON: CT chest abdpel w/*[id number] 05/17/2023 1:08 PM FINDINGS: Lungs: Unremarkable. No consolidation. Pleural spaces: Unremarkable. No pleural effusion. No pneumothorax. Heart/Mediastinum: Unremarkable. No cardiomegaly. Bones/joints: Old/healed fracture through the posterolateral aspect of the right 7th rib. XR/XR chest 1V portable [id number] IMPRESSION: No acute findings.
--- NOTE | 2023-11-10 20:41 | PC.NURSE ---
pt on bedside roving hauler
[2023-11-10 20:48] LABS: Basophils % 0.3 %; Eosinophils # 0.1 10^3/uL (0.0-0.8); Eosinophils % 1.8 %; Hematocrit 38.4 % (36-47); Lymphocytes # 1.9 10^3/uL (0.8-4.8); Lymphocytes % 32.4 %; Mean Corpuscular HGB Conc 32.8 g/dL (30-55); Mean Corpuscular Hemoglobin 28.4 pg (27-33); Mean Corpuscular Volume 86.5 fl (85-98); Mean Platelet Volume 9.4 fL (7.4-10.4); Monocytes # 0.4 10^3/uL (0.2-0.9); Monocytes % 6.8 %; Neutrophils # 3.49 10^3/uL (1.8-7.7); Neutrophils % 58.4 %; Nucleated Red Blood Cells % 0 %; Platelet Count 184 10^3/cmm (157-399); Red Blood Count 4.44 10^6/uL (3.85-5.65); Red Cell Distribution Width 12.2 % (12.1-15.1); White Blood Count 5.99 10^3/uL (3.29-11.43)
--- NOTE | 2023-11-10 21:03 | USR_ITS ---
PROCEDURE INFORMATION: Exam: US Duplex Right Upper Extremity Arteries Exam date and time: 11/10/2023 9:59 PM Age: 63 years old Clinical indication: Pain; Arm, lower; Right; Additional info: Coolness to touch per PT TECHNIQUE: Imaging protocol: Right Real-time ultrasound scan of the arteries of the right upper extremity with 2-D booker scale, color Doppler flow and spectral waveform analysis. COMPARISON: No relevant prior studies available. FINDINGS: No evidence for major vessel occlusion or definite significant stenosis. The subclavian, axillary, brachial, radial, and ulnar arteries appear to be patent with essentially normal appearing flow and velocities on Doppler evaluation. Triphasic flow is seen throughout. Peak systolic velocities as follows: Right subclavian artery proximal: 104 cm/s Right subclavian artery distal: 71 cm/s Right axillary artery: 51 cm/s Right brachial artery proximal: 97 cm/s Right brachial artery mid: 72 cm/s Right brachial artery distal: 83 cm/s Right radial artery proximal: 68 cm/s Right radial artery mid: 72 cm/s Right radial artery distal: 64 cm/s Right ulnar artery proximal: 59 cm/s Right ulnar artery mid: 74 cm/s Right ulnar artery distal: 77 cm/s End-diastolic velocities appear within normal limits throughout. US/[place] [id number] IMPRESSION: 1. No evidence for major vessel occlusion or significant stenosis. 2. Other details discussed above.
--- NOTE | 2023-11-10 21:05 | ED_ITS ---
Documented by User: Phu Grigsby 11/10/23 21:46 HPI - Chest Pain 2 General: Chief Complaint: Chest Pain Stated Complaint: High BP\Tightness In Chest Time Seen by Provider: 11/10/23 20:41 History of Present Illness: 63-year-old female with a prior history of B-cell lymphoma presents emergency department chief complaint of episode of chest pain that started about 7:30 PM after eating dinner patient Dors is is in the right side of her chest as well as midsternal she reports no radiation of otherwise she reports he has some mild shortness of breath with it per the patient's she had an episode like this about a week ago previous which she did not follow-up with care patient does not endorse any history of any known cardiac issues reports the chest pain has currently resolved patient does have a longstanding history of lung issues he does not report any current shortness of breath patient did have some previously patient does have a prior history of stroke which she is taking Eliquis for she does not recall any recent fall or trauma. Associated symptoms: Reports dyspnea and palpitations; Deny abdominal pain, fever(s), nausea or vomiting Review of Systems 2 General: Reports: 10 or more systems reviewed and unremarkable except in HPI and below Const: Denies: fever(s), chills, fatigue or malaise Eyes: Denies: change in vision or blurry vision Card: Reports: chest pain and palpitations Resp: Reports: dyspnea; Denies: productive cough GI: Denies: abdominal pain, nausea or vomiting : Denies: flank pain Musc: Denies: extremity pain or extremity swelling Skin/Breast: Denies: rash or pruritus Neuro: Denies: headache(s) Psych: Denies: anxiety or depression Robby/Lymph: Denies: easy bleeding All/Imm: Denies: urticaria, throat swelling or facial swelling PFSH ED 2 PFSH: Medical History 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 Peripheral neuropathy Anticoagulation adequate with anticoagulant therapy Status post placement of implantable loop recorder 2009 GERD (gastroesophageal reflux disease) CVA (cerebrovascular accident) Peripheral vascular disease Migraine She has tried beta-blockers antidepressant anticonvulsant NSAIDs and Botox Diabetes History of atrial fibrillation Hypothyroidism Hypertension Chronic migraine without aura, intractable, with status migrainosus Major depressive disorder, recurrent, moderate Surgical History H/O esophagogastroduodenoscopy H/O colonoscopy S/P Botox injection Family History Other CAD (coronary artery disease) Hypertension Social History Smoking and tobacco/nicotine status: never used tobacco/nicotine Alcohol intake: never Substance/Drug Use: never Household members: family Housing: House Physical Exam 2 Narrative: EXAM NARRATIVE: Patient appears somewhat anxious on exam however appears in no obvious acute distress Const: COMMON NORMALS: no acute distress, patient oriented x3 and healthy appearing HENMT: COMMON NORMALS: normocephalic and atraumatic HEAD & SCALP: n ormocephalic and atraumatic Eye: COMMON NORMALS: Equal, round and reactive pupils present and EOMs intact bilaterally PUPIL: Yes Equal, round and reactive pupils present Neck/C-Spine: COMMON NORMALS: full ROM, supple and no JVD Lymph: LYMPHATIC: no lymphadenopathy noted Chest: COMMONS NORMALS: normal inspection of the chest and normal palpation of entire chest wall Resp: COMMON NORMALS: normal respiratory effort, No retractions and clear to auscultation bilaterally EFFORT & INSPECTION: Yes able to speak in complete sentences and Yes symmetric chest movement AUSCULTATION: clear to auscultation bilaterally Cardio: COMMON NORMALS: no JVD, regular rate and regular rhythm RATE: r egular rate RHYTHM: regular rhythm GI: COMMON NORMALS: Normal to inspection, nondistended, normoactive bowel sounds present, Soft to palpation and non-tender INSPECTION: Yes normal to inspection PALPATION: Yes Soft to palpation : COMMON NORMALS: Yes no CVA tenderness BLADDER/KIDNEY EXAM: Yes no CVA tenderness Back/Pelvis: COMMON NORMALS: no CVA tenderness Extremity: COMMON NORMALS: normal to inspection and full ROM Neuro: COMMON NORMALS: patient oriented x3, CN's II-XII intact bilaterally, moves all extremities and no focal motor deficits Psych: COMMON NORMALS: mental status grossly normal, Normal thought process present, cooperative and normal affect THOUGHT PROCESS: Normal thought process present Skin: COMMON NORMALS: no rashes or lesions noted GENERAL SKIN EXAM: no rashes or lesions noted Course 2 Vital Signs: Vital signs: Vital Signs Temperature 99.4 F 11/10/23 20:29 Pulse Rate 93 11/10/23 23:00 Respiratory Rate 19 H 11/10/23 23:00 Blood Pressure 150/95 11/10/23 23:00 Pulse Oximetry 100 11/10/23 23:00 Oxygen Delivery Me thod Room Air 11/10/23 23:00 MDM - Chest Pain Medical Decision Making Initial EKG looks unremarkable no obvious STEMI appreciated we will continue to follow a 2-hour troponins with a rule out. Will continue to follow. Patient does have a low-grade temperature 99.4 ?F currently waiting rest of the test this patient will be signed out to my colleague Dr. Walker at 2200. Lab Data 11/10/23 20:43 11/10/23 20:43 Radiology Impressions Chest X-Ray 11/10/23 20:30 IMPRESSION: No acute findings. Duplex Scan Upper Extremity Artery 11/10/23 21:03 IMPRESSION: 1. No evidence for major vessel occlusion or significant stenosis. 2. Other details discussed above. Laboratory Results WBC 5.99 10^3/uL (3.29-11.43) 11/10/23 20:43 RBC 4.44 10^6/uL (3.85-5.65) 11/10/23 20:43 Hgb 12.60 g/dL (11.27-16.99) 11/10/23 20:43 Hct 38.4 % (36-47) 11/10/23 20:43 MCV 86.5 fl (85-98) 11/10/23 20:43 MCH 28.4 pg (27-33) 11/10/23 20:43 MCHC 32.8 g/dL (30-55) 11/10/23 20:43 RDW 12.2 % (12.1-15.1) 11/10/23 20:43 Plt Count 184 10^3/cmm (157-399) 11/10/23 20:43 MPV 9.4 fL (7.4-10.4) 11/10/23 20:43 Neut % (Auto) 58.4 % 11/10/23 20:43 Lymph % (Auto) 32.4 % 11/10/23 20:43 [place] % (Auto) 6.8 % 11/10/23 20:43 Eos % (Auto) 1.8 % 11/10/23 20:43 Baso % (Auto) 0.3 % 11/10/23 20:43 Neut # (Auto) 3.49 10^3/uL (1.8-7.7) 11/10/23 20:43 Lymph # (Auto) 1.9 10^3/uL (0.8-4.8) 11/10/23 20:43 [place] # (Auto) 0.4 10^3/uL (0.2-0.9) 11/10/23 20:43 Eos # (Auto) 0.1 10^3/uL (0.0-0.8) 11/10/23 20:43 Baso # (Auto) 0.0 10^3/uL (0.0-0.1) 11/10/23 20:43 Nucleated RBC % (auto) 0 % 11/10/23 20:43 Nucleated RBCs # 0.0 /100WBC 11/10/23 20:43 Sodium 139 mmol/L (136-145) 11/10/23 20:43 Potassium 3.8 mmol/L (3.5-5.1) 11/10/23 20:43 Chloride 106 mmol/L (98-107) 11/10/23 20:43 Carbon Dioxide 22 mmol/L (22-29) 11/10/23 20:43 Anion Gap 14.8 (5-19) 11/10/23 20:43 BUN 13 mg/dL (8-23) 11/10/23 20:43 Creatinine 0.8 mg/dL (0.5-0.9) 11/10/23 20:43 GFR Calculation 72.4 mL/min (90-130) L 11/10/23 20:43 Glucose 155 mg/dL (65-115) H 11/10/23 20:43 Calculated Osmolality 291 mOsm/kg (285-295) 11/10/23 20:43 Calcium 8.9 mg/dL (8.5-10.5) 11/10/23 20:43 Total Bilirubin 0.3 mg/dL (0.15-1.2) 11/10/23 20:43 AST 13 U/L (0-32) 11/10/23 20:43 ALT 13 U/L (0-33) 11/10/23 20:43 Alkaline Phosphatase 94 U/L (35-105) 11/10/23 20:43 Troponin T Baseline 7 ng/L (0-10) 11/10/23 20:43 Troponin T 120 Minute 6.34 ng/L (0-10) 11/10/23 22:43 Delta Troponin T -0.66 ABS# (0-10) L 11/10/23 22:43 Total Protein 6.5 g/dL (6.6-8.7) L 11/10/23 20:43 Albumin 4.4 g/dL (3.5-5.2) 11/10/23 20:43 Globulin 2.1 g/dL (1.3-4.6) 11/10/23 20:43 All radiology interpretation(s) finalized by discharge Discharge Plan Discharge Patient Disposition: Home Clinical Impression: Chest pain Qualifiers: Chest pain type: unspecified Qualified Code(s): R07.9 - Chest pain, unspecified Hypertension Qualifiers: Hypertension type: unspecified Qualified Code(s): I10 - Essential (primary) hypertension Condition: Stable Prescriptions: No Action pantoprazole 40 mg tablet,delayed release (DR/EC) 40 mg PO DAILY Eliquis 5 mg tablet 5 mg PO BID metformin 750 mg tablet extended release 24 hr 750 mg PO BEDTIME potassium chloride 10 mEq capsule, extended release 40 meq PO TIDWMEAL gabapentin 300 mg capsule 300 mg PO TID cholecalciferol (vitamin D3) 50 mcg (2,000 unit) capsule 50 mcg PO DAILY lisinopril 20 mg tablet 20 mg PO DAILY aspirin [Adult Low Dose Aspirin] 81 mg tablet,delayed release (DR/EC) 81 mg PO DAILY trazodone 150 mg tablet 300 mg PO BEDTIME rosuvastatin 40 mg tablet 40 mg PO BEDTIME aripiprazole [Abilify] 5 mg tablet 5 mg PO DAILY loratadine 10 mg tablet 10 mg PO DAILY melatonin 10 mg tablet,disintegrating 10 mg PO BEDTIME quetiapine [Seroquel] 100 mg tablet 100 mg PO .HS Qty: 60 3RF duloxetine 60 mg capsule,delayed release(DR/EC) 120 mg PO DAILY Qty: 60 3RF Rx Instructions: Take two capsules daily topiramate 100 mg tablet See Rx Instructions .ROUTE .COMPLEX Qty: 60 0RF Dose Instruction: TAKE 1 TABLET BY MOUTH TWO TIMES DAILY Rx Instructions: TAKE 1 TABLET BY MOUTH TWO TIMES DAILY loperamide [Imodium A-D] 2 mg Capsule 2 mg PO PRN PRN (Reason: Diarrhea) levothyroxine 50 mcg Tablet 50 mcg PO DAILY bismuth subsalicylate [Pepto-Bismol] 262 mg/15 mL Suspension 524 mg PO Q1H PRN (Reason: Stomach Upset) albuterol sulfate [ProAir HFA] 90 mcg/actuation Hfa Aerosol Inhaler See Rx Instructions .ROUTE .COMPLEX Rx Instructions: inhaled USE DIRECTED fluticasone propionate 50 mcg/actuation [place],Suspension 1 spray INTRANASAL DAILY Tylenol 325 mg tablet 325 mg PO QID PRN (Reason: Pain) Imitrex 100 mg tablet 100 mg PO Q2H PRN (Reason: UNKNOWN) docusate sodium [Colace] 100 mg capsule 200 mg PO BID PRN Rx Instructions: 2 in the am and 2 in the evening metoprolol tartrate 50 mg Tablet 50 mg PO BID 30 Days Qty: 30 0RF Discharge Orders: Discharge ED (Routine); Ordered 11/10/23 Ordered By: Marvin Walker Referrals: Susi Pratt MD [Primary Care Provider] - 1 week Patient Instructions: Hypertension, Chest Pain (DC) Activity Restrictions/Additional Instructions: Your evaluation in the ER included lab work, EKG, chest x-ray, ultrasound, did not show any acute cardiac cause of your chest pain. Your chest pain is felt to be noncardiac in nature. Please keep an eye on your blood pressure. Keep a blood pressure log at least 1 time daily and take it with you to your family practice physician. Please follow-up with your family practice physician within next 7 to 10 days for further evaluation and treatment. 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 Peripheral neuropathy Anticoagulation adequate with anticoagulant therapy Status post placement of implantable loop recorder 2009 GERD (gastroesophageal reflux disease) CVA (cerebrovascular accident) Peripheral vascular disease Migraine She has tried beta-blockers antidepressant anticonvulsant NSAIDs and Botox Diabetes History of atrial fibrillation Hypothyroidism Hypertension Chronic migraine without aura, intractable, with status migrainosus Major depressive disorder, recurrent, moderate Surgical History H/O esophagogastroduodenoscopy H/O colonoscopy S/P Botox injection Family History Other CAD (coronary artery disease) Hypertension Social History Smoking and tobacco/nicotine status: never used tobacco/nicotine Alcohol intake: never Substance/Drug Use: never Household members: family Housing: [place] Course 2 Vital Signs: Vital signs: Vital Signs Temperature 99.4 F 11/10/23 20:29 Pulse Rate 93 11/10/23 23:00 Respiratory Rate 19 H 11/10/23 23:00 Blood Pressure 150/95 11/10/23 23:00 Pulse Oximetry 100 11/10/23 23:00 Oxygen Delivery Me thod Room Air 11/10/23 23:00 MDM - Chest Pain Medical Decision Making Initial EKG looks unremarkable no obvious STEMI appreciated we will continue to follow a 2-hour troponins with a rule out. Will continue to follow. Patient does have a low-grade temperature 99.4 ?F currently waiting rest of the test this patient will be signed out to my colleague Dr. Walker at 2200. Patient care transferred over to myself at the end of shift. All lab work reviewed as well as, x-ray, ultrasound, EKGs, all of which was essentially benign. Patient will be discharged home to follow-up with PCP Lab Data 11/10/23 20:43 11/10/23 20:43 Radiology Impressions Chest X-Ray 11/10/23 20:30 IMPRESSION: No acute findings. Duplex Scan Upper Extremity Artery 11/10/23 21:03 IMPRESSION: 1. No evidence for major vessel occlusion or significant stenosis. 2. Other details discussed above. Laboratory Results WBC 5.99 10^3/uL (3.29-11.43) 11/10/23 20:43 RBC 4.44 10^6/uL (3.85-5.65) 11/10/23 20:43 Hgb 12.60 g/dL (11.27-16.99) 11/10/23 20:43 Hct 38.4 % (36-47) 11/10/23 20:43 MCV 86.5 fl (85-98) 11/10/23 20:43 MCH 28.4 pg (27-33) 11/10/23 20:43 MCHC 32.8 g/dL (30-55) 11/10/23 20:43 RDW 12.2 % (12.1-15.1) 11/10/23 20:43 Plt Count 184 10^3/cmm (157-399) 11/10/23 20:43 MPV 9.4 fL (7.4-10.4) 11/10/23 20:43 Neut % (Auto) 58.4 % 11/10/23 20:43 Lymph % (Auto) 32.4 % 11/10/23 20:43 [place] % (Auto) 6.8 % 11/10/23 20:43 Eos % (Auto) 1.8 % 11/10/23 20:43 Baso % (Auto) 0.3 % 11/10/23 20:43 Neut # (Auto) 3.49 10^3/uL (1.8-7.7) 11/10/23 20:43 Lymph # (Auto) 1.9 10^3/uL (0.8-4.8) 11/10/23 20:43 [place] # (Auto) 0.4 10^3/uL (0.2-0.9) 11/10/23 20:43 Eos # (Auto) 0.1 10^3/uL (0.0-0.8) 11/10/23 20:43 Baso # (Auto) 0.0 10^3/uL (0.0-0.1) 11/10/23 20:43 Nucleated RBC % (auto) 0 % 11/10/23 20:43 Nucleated RBCs # 0.0 /100WBC 11/10/23 20:43 Sodium 139 mmol/L (136-145) 11/10/23 20:43 Potassium 3.8 mmol/L (3.5-5.1) 11/10/23 20:43 Chloride 106 mmol/L (98-107) 11/10/23 20:43 Carbon Dioxide 22 mmol/L (22-29) 11/10/23 20:43 Anion Gap 14.8 (5-19) 11/10/23 20:43 BUN 13 mg/dL (8-23) 11/10/23 20:43 Creatinine 0.8 mg/dL (0.5-0.9) 11/10/23 20:43 GFR Calculation 72.4 mL/min (90-130) L 11/10/23 20:43 Glucose 155 mg/dL (65-115) H 11/10/23 20:43 Calculated Osmolality 291 mOsm/kg (285-295) 11/10/23 20:43 Calcium 8.9 mg/dL (8.5-10.5) 11/10/23 20:43 Total Bilirubin 0.3 mg/dL (0.15-1.2) 11/10/23 20:43 AST 13 U/L (0-32) 11/10/23 20:43 ALT 13 U/L (0-33) 11/10/23 20:43 Alkaline Phosphatase 94 U/L (35-105) 11/10/23 20:43 Troponin T Baseline 7 ng/L (0-10) 11/10/23 20: Troponin T 120 Minute 6.34 ng/L (0-10) 11/10/23 22:43 Delta Troponin T -0.66 ABS# (0-10) L 11/10/23 22:43 Total Protein 6.5 g/dL (6.6-8.7) L 11/10/23 20:43 Albumin 4.4 g/dL (3.5-5.2) 11/10/23 20:43 Globulin 2.1 g/dL (1.3-4.6) 11/10/23 20:43 Discharge Plan Discharge Patient Disposition: Home Clinical Impression: Chest pain Qualifiers: Chest pain type: unspecified Qualified Code(s): R07.9 - Chest pain, unspecified Hypertension Qualifiers: Hypertension type: unspecified Qualified Code(s): I10 - Essential (primary) hypertension Condition: Stable Prescriptions: No Action pantoprazole 40 mg tablet,delayed release (DR/EC) 40 mg PO DAILY Eliquis 5 mg tablet 5 mg PO BID metformin 750 mg tablet extended release 24 hr 750 mg PO BEDTIME potassium chloride 10 mEq capsule, extended release 40 meq PO TIDWMEAL gabapentin 300 mg capsule 300 mg PO TID cholecalciferol (vitamin D3) 50 mcg (2,000 unit) capsule 50 mcg PO DAILY lisinopril 20 mg tablet 20 mg PO DAILY aspirin [Adult Low Dose Aspirin] 81 mg tablet,delayed release (DR/EC) 81 mg PO DAILY trazodone 150 mg tablet 300 mg PO BEDTIME rosuvastatin 40 mg tablet 40 mg PO BEDTIME aripiprazole [Abilify] 5 mg tablet 5 mg PO DAILY loratadine 10 mg tablet 10 mg PO DAILY melatonin 10 mg tablet,disintegrating 10 mg PO BEDTIME quetiapine [Seroquel] 100 mg tablet 100 mg PO .HS Qty: 60 3RF duloxetine 60 mg capsule,delayed release(DR/EC) 120 mg PO DAILY Qty: 60 3RF Rx Instructions: Take two capsules daily topiramate 100 mg tablet See Rx Instructions .ROUTE .COMPLEX Qty: 60 0RF Dose Instruction: TAKE 1 TABLET BY MOUTH TWO TIMES DAILY Rx Instructions: TAKE 1 TABLET BY MOUTH TWO TIMES DAILY loperamide [Imodium A-D] 2 mg Capsule 2 mg PO PRN PRN (Reason: Diarrhea) levothyroxine 50 mcg Tablet 50 mcg PO DAILY bismuth subsalicylate [Pepto-Bismol] 262 mg/15 mL Suspension 524 mg PO Q1H PRN (Reason: Stomach Upset) albuterol sulfate [ProAir HFA] 90 mcg/actuation Hfa Aerosol Inhaler See Rx Instructions .ROUTE .COMPLEX Rx Instructions: inhaled USE DIRECTED fluticasone propionate 50 mcg/actuation [place],Suspension 1 spray INTRANASAL DAILY Tylenol 325 mg tablet 325 mg PO QID PRN (Reason: Pain) Imitrex 100 mg tablet 100 mg PO Q2H PRN (Reason: UNKNOWN) docusate sodium [Colace] 100 mg capsule 200 mg PO BID PRN Rx Instructions: 2 in the am and 2 in the evening metoprolol tartrate 50 mg Tablet 50 mg PO BID 30 Days Qty: 30 0RF Discharge Orders: Discharge ED (Routine); Ordered 11/10/23 Ordered By: Marvin Walker Referrals: Susi Pratt MD [Primary Care Provider] - 1 week Patient Instructions: Hypertension, Chest Pain (DC) Activity Restrictions/Additional Instructions: Your evaluation in the ER included lab work, EKG, chest x-ray, ultrasound, did not show any acute cardiac cause of your chest pain. Your chest pain is felt to be noncardiac in nature. Please keep an eye on your blood pressure. Keep a blood pressure log at least 1 time daily and take it with you to your family practice physician. Please follow-up with your family practice physician within next 7 to 10 days for further evaluation and treatment. Coding Level of Care Code ED Component Assembler for Carol Lyles
[2023-11-10 21:06] LABS: Troponin(5th) Baseline 7 ng/L (0-10)
[2023-11-10 21:12] LABS: Alanine Aminotransferase 13 U/L (0-33); Albumin Level 4.4 g/dL (3.5-5.2); Alkaline Phosphatase 94 U/L (35-105); Anion Gap 14.8 (5-19); Aspartate Amino Transferase 13 U/L (0-32); Blood Urea Nitrogen 13 mg/dL (8-23); Calcium 8.9 mg/dL (8.5-10.5); Carbon Dioxide 22 mmol/L (22-29); Chloride 106 mmol/L (98-107); Creatinine Clr Calc Pharmacy 93.0444; Globulin 2.1 g/dL (1.3-4.6); Glomerular Filtration Rate 72.4 mL/min (90-130); Glucose 155 mg/dL (65-115); Osmolality Calculated 291 mOsm/kg (285-295); Potassium 3.8 mmol/L (3.5-5.1); Sodium 139 mmol/L (136-145); Total Bilirubin 0.3 mg/dL (0.15-1.2); Total Protein 6.5 g/dL (6.6-8.7)
[2023-11-10 21:33] VITALS: BP 185/112; PULSE 77; RESP 17; O2SAT 95
[2023-11-10 22:30] VITALS: BP 164/110; PULSE 85; RESP 16; O2SAT 93
--- NOTE | 2023-11-10 22:30 | ECG_ITS ---
[facility] Test Date: 2023-11-10 Pat Name: Maris Mcdermott Department: Room: Gender: Female Grinding Wheel Facer: : 1960 Requested By: Marvin Walker Order Number: [id number] John MD: Jean-Pierre Melendez M.D. Measurements Intervals [place] Rate: 75 P: 52 [place]: 156 QRS: 12 QRSD: 77 T: 61 QT: 386 QTc: 433 Interpretive Statements SINUS RHYTHM LOW QRS VOLTAGE IN PRECORDIAL LEADS [QRS DEFLECTION < 1.0 mV IN CHEST LEADS] NONSPECIFIC T-WAVE ABNORMALITY Compared to ECG 11/10/2023 20:23:05 Low QRS voltage now present T-wave abnormality now present Electronically Signed On 11-11-2023 7:13:28 CDT by Jean-Pierre Melendez M.D. [email or web address]
[2023-11-10 23:00] VITALS: BP 150/95; PULSE 93; RESP 19; O2SAT 100
[2023-11-10 23:10] LABS: Troponin 5 2HR 6.34 ng/L (0-10)
[2023-11-10 23:11] LABS: Troponin 5 2HR Delta -0.66 ABS# (0-10)
[2023-11-10 23:56] VITALS: BP 154/94; PULSE 89; RESP 16; O2SAT 96
== END 2023-11-11 00:05 | disposition home or self-care (01) ==
PROVIDERS: Emergency Medicine; Emergency Provider Emergency Medicine; PCP Internal Medicine
DX: R07.9 Chest pain, unspecified (principal); I10 Essential (primary) hypertension; Z79.01 Long term (current) use of anticoagulants; Z79.84 Long term (current) use of oral hypoglycemic drugs; Z79.82 Long term (current) use of aspirin; Z85.72 Personal history of non-Hodgkin lymphomas; Z86.73 Personal history of transient ischemic attack (TIA), and cerebral infarction without residual deficits; E11.9 Type 2 diabetes mellitus without complications
CPT/HCPCS: 36415; 71045; 80053; 84484; 85025; 93005; 93931; 99285

== ENCOUNTER → 2024-01-11 09:51 | Outpatient (BNVA) | payer MEDICAID, SELFPAY | PROVIDERS: PCP Internal Medicine; Referring Provider Nurse Practitioner Family; Visit Provider Internal Medicine | DX: R00.2 Palpitations (principal); R00.0 Tachycardia, unspecified; Z86.79 Personal history of other diseases of the circulatory system; I10 Essential (primary) hypertension; Z79.01 Long term (current) use of anticoagulants | CPT/HCPCS: 99204 ==

== ENCOUNTER 2024-01-18 13:57 | Outpatient (CLI) | payer MEDICAID, SELFPAY ==
[2024-01-18] MEDS: iohexol 350 mg/mL 500 mL Btl (per mL) IV (15:07)
[2024-01-18] MEDS: iohexol 350 mg/mL 500 mL Btl (per mL) PO (15:08)
--- NOTE | 2024-01-18 15:30 | CT_ITS ---
WS: [id number] CT CHEST, ABDOMEN AND PELVIS WITH CONTRAST HISTORY: Lymphoma TECHNIQUE: Contiguous 5 mm axial imaging performed through the chest, abdomen and pelvis with IV cont rast, oral contrast has been provided. Coronal and sagittal reformats chest. Coronal and sagittal ref ormats through the abdomen and pelvis. All CT scans at [facility] use at least one of these d ose optimization techniques: automated exposure control; mA and/or kV adjustment per patient size (in cludes targeted exams where dose is matched to clinical indication); or iterative reconstruction. CONTRAST: Omnipaque 350; 100 mL IV. DLP: 1346.12 mGy.cm COMPARISON: 05/17/2023, 03/05/2023, 11/03/[address]: New subsegmental groundglass attenuation in the posterior LEFT lower lobe with additional t hin linear scar or atelectasis in the lingula. There are small LEFT perifissural nodules. Heart is sl ightly enlarged. No pericardial or pleural effusions. Normal aorta. Pulmonary arteries. Mildly promin ent. No mediastinal or hilar adenopathy. Soft tissues of the chest wall are normal. Small hiatal mary ia. Healed rib fractures RIGHT lateral chest wall. Abdomen CT: Mildly enlarged liver with mild hepatic steatosis. Normal portal vein. No bile duct dilat ation. Prior cholecystectomy. Normal spleen. Normal pancreas. Normal adrenal glands and kidneys. No r enal obstruction or mass identified. Normal aorta and mesenteric arteries. Stomach is markedly distended with food products. No small bowel obstruction or ischemia. Mild diffus e constipation. No obstructive pattern. There are a few very small mesenteric lymph nodes and retroperitoneal lymph nodes which have been pre sent on prior studies with no progression. Pelvic CT: No free fluid or adenopathy. No destructive bone lesions. CT/CT chest abdpel w/*[id number] IMPRESSION: 1. No lymphadenopathy within the chest, abdomen or pelvis. 2. New focal area of groundglass attenuation in the posterior LEFT lower lobe. Typically seen with pneumonitis. There is no mass. 3. Mild hepatic steatosis and hepatomegaly. 4. No destructive bone lesions.
== END 2024-01-18 13:58 | disposition home or self-care (01) ==
LOC: RAD 13:58
PROVIDERS: PCP Internal Medicine; Visit Provider Nurse Practitioner Family
DX: C85.21 Mediastinal (thymic) large B-cell lymphoma, lymph nodes of head, face, and neck (principal); R91.8 Other nonspecific abnormal finding of lung field; Z90.49 Acquired absence of other specified parts of digestive tract
CPT/HCPCS: 71260; 74177

== ENCOUNTER 2024-02-11 11:54 | Oncology outpatient (recurring) (ONCR) | payer MEDICAID, SELFPAY ==
[2024-02-11 12:21] LABS: Basophils % 0.3 %; Eosinophils # 0.3 10^3/uL (0.0-0.8); Eosinophils % 5.8 %; Lymphocytes # 1.4 10^3/uL (0.8-4.8); Lymphocytes % 24.6 %; Mean Corpuscular HGB Conc 33.5 g/dL (30-55); Mean Corpuscular Hemoglobin 29.1 pg (27-33); Mean Corpuscular Volume 86.9 fl (85-98); Mean Platelet Volume 9.4 fL (7.4-10.4); Monocytes # 0.4 10^3/uL (0.2-0.9); Monocytes % 6.5 %; Neutrophils # 3.62 10^3/uL (1.8-7.7); Neutrophils % 61.9 %; Nucleated Red Blood Cells % 0 %; Platelet Count 193 10^3/cmm (157-399); Red Blood Count 4.26 10^6/uL (3.85-5.65); White Blood Count 5.85 10^3/uL (3.29-11.43)
[2024-02-11 12:37] LABS: Alanine Aminotransferase 16 U/L (0-33); Albumin Level 3.9 g/dL (3.5-5.2); Alkaline Phosphatase 89 U/L (35-105); Anion Gap 14.4 (5-19); Aspartate Amino Transferase 24 U/L (0-32); Blood Urea Nitrogen 14 mg/dL (8-23); Calcium 8.5 mg/dL (8.5-10.5); Carbon Dioxide 23 mmol/L (22-29); Chloride 100 mmol/L (98-107); Globulin 2.5 g/dL (1.3-4.6); Glomerular Filtration Rate 63.2 mL/min (90-130); Glucose 211 mg/dL (65-115); Lactate Dehydrogenase 160 U/L (135-214); Osmolality Calculated 285 mOsm/kg (285-295); Potassium 3.4 mmol/L (3.5-5.1); Sodium 134 mmol/L (136-145); Total Bilirubin 0.3 mg/dL (0.15-1.2); Total Protein 6.4 g/dL (6.6-8.7)
== END 2024-02-21 23:59 | disposition home or self-care (01) ==
PROVIDERS: Nurse Practitioner Family; PCP Internal Medicine; Visit Provider Internal Medicine Hematology & Oncology
DX: C85.21 Mediastinal (thymic) large B-cell lymphoma, lymph nodes of head, face, and neck (principal); Z79.899 Other long term (current) drug therapy
CPT/HCPCS: 36415; 73564; 77063; 77067; 80053; 83615; 85025; 99214

== ENCOUNTER 2024-02-11 14:20 | Outpatient (CLI) | payer MEDICAID, SELFPAY ==
--- NOTE | 2024-02-11 | XRR_ITS ---
PROCEDURE INFORMATION: Exam: XR Left Knee Exam date and time: 02/11/2024 2:38 PM Age: 63 years old Clinical indication: Pain; Knee; Left; Additional info: Pain in left knee TECHNIQUE: Imaging protocol: Radiologic exam of the left knee. Views: 4 or more views. COMPARISON: MR knee LT wo con* [id number] 10/11/2018 3:15 PM FINDINGS: Bones/joints: No fracture or other acute abnormality. Minor degenerative changes are seen in the medial compartment. Soft tissues: Normal. IMPRESSION: No acute findings. MTDD
--- NOTE | 2024-02-11 | MM_ITS ---
WS: [id number] BILATERAL SCREENING DIGITAL TOMOSYNTHESIS MAMMOGRAM WITH CAD HISTORY: SCREENING COMPARISON: 12/29/2022, 04/28/2019 Bilateral CC and MLO views with tomosynthesis and synthetic mammography submitted. Computer aided det ection analyzed. Breast composition: There are scattered areas of fibroglandular density. No suspicious masses, microc alcifications or architectural distortion. MM/MM scr BI tomosynthesis [id number] IMPRESSION: BI-RADS: 1 - Negative. FOLLOW UP: 1 Year Follow-up
== END 2024-02-11 14:21 | disposition home or self-care (01) ==
PROVIDERS: PCP Internal Medicine; Visit Provider Internal Medicine
DX: Z12.31 Encounter for screening mammogram for malignant neoplasm of breast (principal); R92.323 Mammographic fibroglandular density, bilateral breasts; M25.562 Pain in left knee
CPT/HCPCS: 73564; 77063; 77067

== ENCOUNTER → 2024-03-25 14:17 | Outpatient (BNVA) | payer MEDICAID, SELFPAY | PROVIDERS: PCP Internal Medicine; Visit Provider Podiatrist Foot & Ankle Surgery | DX: E11.40 Type 2 diabetes mellitus with diabetic neuropathy, unspecified (principal); E11.9 Type 2 diabetes mellitus without complications; Z79.84 Long term (current) use of oral hypoglycemic drugs | CPT/HCPCS: 99203 ==

== ENCOUNTER → 2024-04-08 09:34 | Outpatient (BNVA) | payer MEDICAID, SELFPAY | PROVIDERS: PCP Internal Medicine; Visit Provider Student in an Organized Health Care Education/Training Program | DX: M17.12 Unilateral primary osteoarthritis, left knee; M25.561 Pain in right knee; M25.562 Pain in left knee | CPT/HCPCS: 20610; 73560; 73565; 99204; J3301 ==

== ENCOUNTER 2024-05-27 10:46 | Day surgery (SDC) | payer MEDICAID, SELFPAY ==
[2024-05-27] VITALS (11 sets, daily range): BP systolic 129–163; BP diastolic 79–95; PULSE 67–73; RESP 12–20; TEMP 36.1–36.7; O2SAT 91–100; BMI 36.3
--- NOTE | 2024-05-27 11:02 | ANES.PREANE2 ---
Pre-Anesthetic Assessment Height/Weight: Height 1.73 m Temp Pulse Resp BP Pulse Ox O2 Del Method 98.0 F 70 17 154/89 97 Room Air 05/27/24 11:01 05/27/24 11:01 05/27/24 11:01 05/27/24 11:01 05/27/24 11:01 05/27/24 11:01 Operation Date: 05/27/24 12:35 Proposed Procedures p Sentio Sytem Placement(Left) - Dale Chirinos MD Familial anesthetic complications: None Was Beta Gabo taken within 24 hours: Yes Was Clonidine taken within 24 hours: N/A Last intake: > 8hrs Social No alcohol and No tobacco Exam alert, oriented x 3, clear to auscultation bilaterally and regular rate & rhythm Airway Mallampati: Class III Pulmonary Sleep Apnea CV/HEM Atrial Fibrillation and Hypertension Metabolic Diabetes Mellitus, Morbid Obesity and Thyroid Disease Anesthetic Plan ASA status: 3 Anesthesia: General Risk of > 500 ml blood loss (7ml/kg in children): No Medications/Allergies Home Medications ?Medication ?Instructions ?Recorded ?Confirmed ?Last Taken ?Type albuterol sulfate 90 mcg/actuation 2 puff inhalation DIRECTED 05/05/19 05/26/24 05/24/24 History aerosol inhaler (ProAir HFA) bismuth subsalicylate 262 mg/15 mL 524 mg PO Q1H PRN Stomach Upset 05/05/19 05/26/24 05/04/19 History oral suspension (Pepto-Bismol) fluticasone propionate 50 1 spray intranasal DAILY 05/05/19 05/26/24 05/26/24 History mcg/actuation nasal spray,suspension levothyroxine 50 mcg tablet 50 mcg PO DAILY 05/05/19 05/26/24 05/26/24 History loperamide 2 mg capsule (Imodium 2 mg PO PRN PRN Diarrhea 05/05/19 05/26/24 05/04/19 History A-D) acetaminophen 325 mg tablet 325 mg PO QID PRN Pain 07/08/19 05/26/24 05/26/24 History (Tylenol) apixaban 5 mg tablet (Eliquis) 5 mg PO BID 07/08/19 05/26/24 05/18/24 History pantoprazole 40 mg tablet,delayed 40 mg PO DAILY 07/08/19 05/26/24 05/26/24 History release sumatriptan succinate 100 mg 100 mg PO Q2H PRN UNKNOWN 07/08/19 05/26/24 Unknown History tablet (Imitrex) metoprolol tartrate 50 mg tablet 50 mg PO BID 30 days #30 tabs 10/15/19 05/26/24 05/26/24 Rx duloxetine 60 mg capsule,delayed 120 mg (2 x 60 mg) PO DAILY #60 02/09/21 05/26/24 05/26/24 Rx release caps quetiapine 100 mg tablet (Seroquel) 100 mg PO .HS #60 tabs 02/09/21 05/26/24 05/25/24 Rx aripiprazole 5 mg tablet (Abilify) 5 mg PO DAILY 10/02/22 05/26/24 05/25/24 History aspirin 81 mg tablet,delayed 81 mg PO DAILY 10/02/22 05/26/24 05/18/24 History release (Adult Low Dose Aspirin) cholecalciferol (vitamin D3) 50 50 mcg PO DAILY 10/02/22 05/26/24 05/25/24 History mcg (2,000 unit) capsule docusate sodium 100 mg capsule 200 mg PO BID PRN Constipation 10/02/22 05/26/24 Unknown History (Colace) gabapentin 300 mg capsule 300 mg PO TID 10/02/22 05/26/24 05/26/24 History loratadine 10 mg tablet 10 mg PO DAILY 10/02/22 05/26/24 05/25/24 History melatonin 10 mg disintegrating 10 mg PO BEDTIME 10/02/22 05/26/24 05/25/24 History tablet metformin 750 mg tablet,extended 750 mg PO BEDTIME 10/02/22 05/26/24 05/25/24 History release 24 hr potassium chloride 10 mEq 40 meq PO TIDWMEAL 10/02/22 05/26/24 05/26/24 History capsule,extended release rosuvastatin 40 mg tablet 40 mg PO BEDTIME 10/02/22 05/26/24 05/25/24 History trazodone 150 mg tablet 300 mg PO BEDTIME 10/02/22 05/26/24 05/25/24 History budesonide-formoterol HFA 160 1 puff inhalation BID 01/11/24 05/26/24 05/24/24 History mcg-4.5 mcg/actuation aerosol inhaler (Symbicort) hydrochlorothiazide 25 mg tablet 25 mg PO DAILY 01/11/24 05/26/24 05/26/24 History lisinopril 20 mg tablet 40 mg PO DAILY 01/11/24 05/26/24 05/25/24 History mecobalamin (vitamin B12) 1,000 1,000 mcg PO DAILY 01/11/24 05/26/24 05/26/24 History mcg chewable tablet diabetic shoes with 3 inserts #1 ea 03/25/24 04/08/24 Unknown Rx LEFT HINGED KNEE BRACE #1 ea 04/08/24 04/08/24 Unknown Rx insulin glargine 100 unit/mL (3 25 unit SUBCUT DAILY 05/26/24 05/26/24 05/25/24 History mL) subcutaneous pen (Lantus Solostar U-100 Insulin) topiramate 100 mg tablet 100 mg PO BID 05/26/24 05/26/24 05/26/24 History Allergies Allergy/AdvReac Type Severity Reaction Status Date / Time codeine Allergy ALGY-Rash Verified 04/08/24 09:46 diphenhydramine (From Allergy ADR-Irritab Verified 04/08/24 09:46 Benadryl) le pseudoephedrine (From Allergy ADR-Irritab Verified 04/08/24 09:46 Sudafed) le Sulfa (Sulfonamide Allergy ALGY-Rash Verified 04/08/24 09:46 Antibiotics) tuberculin, purified protein Allergy Unknown Verified 04/08/24 09:46 deriva [facility] Anesthesia Medical History 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 Peripheral neuropathy Anticoagulation adequate with anticoagulant therapy Status post placement of implantable loop recorder 2009 GERD (gastroesophageal reflux disease) CVA (cerebrovascular accident) Peripheral vascular disease Migraine She has tried beta-blockers antidepressant anticonvulsant NSAIDs and Botox Diabetes History of atrial fibrillation Hypothyroidism Hypertension Chronic migraine without aura, intractable, with status migrainosus Major depressive disorder, recurrent, moderate Surgical History H/O esophagogastroduodenoscopy H/O colonoscopy S/P Botox injection Family History Other CAD (coronary artery disease) Hypertension Social History Smoking and tobacco/nicotine status: never used tobacco/nicotine Alcohol intake: never Substance/Drug Use: never Household members: family Housing: House Data Anesthesia Cardiac Studies: Echocardiogram 05/16/23 Echocardiogram Ultrasound 10/15/19 Holter Monitor 11/17/19
--- NOTE | 2024-05-27 11:12 | W.PM.OPSUD ---
Surgery/Procedure H&P Update DATE OF PROCEDURE: May 27, 2024 DATE H&P PERFORMED: 05/12/24 PRIMARY INDICATION FOR PROCEDURE: Single sided deafness PLANNED PROCEDURE: Operation Date: 05/27/24 12:35 Proposed Procedures p Sentio Sytem Placement(Left) - Dale Chirinos MD
[2024-05-27] MEDS: scopolamine 1 mg PATCH 1 PATCH TRANSDERMA (11:16)
[2024-05-27] MEDS: sodium chloride 0.9% 1,000 ML 30 ML IV (11:17)
[2024-05-27 11:28] LABS: Glucose Point of Care 115 mg/dL (70-110)
[2024-05-27] MEDS: ceFAZolin 2,000 mg SDV 2000 MG IVP (11:50)
[2024-05-27] MEDS: lidocaine-epi 1% 20 mL INJ INJECTION (12:30)
[2024-05-27] MEDS: neomycin-poly-bacitracin oint 28 gm 1 APPLIC TOPICAL (13:41)
--- NOTE | 2024-05-27 14:16 | PM.OP ---
Operative Report Date of procedure: May 27, 2024 Pre-op diagnosis: Unilateral hearing loss, Left ear Post-op diagnosis: Same Post-op findings: Normal left mastoid exam Procedure done: Left ear Sentio Bone Anchored Hearing Aid Placement Implants: Cochlear Sentio Implant Specimens removed/disposition: None Pathology: None Surgeon: Dale Chirinos Surgeon: Dale Chirinos MD Anesthesia: General Estimated blood loss (mL): 10 IV fluids (mL): 1,100 Complications: None Findings: Normal left mastoid exam Condition: stable Disposition: PACU Brief History: 63 yo wf with a h/o left unilateral deafness who desires surgical therapy. Procedure: The patient was identified in the preop holding area and was taken to the operating room where she was placed on the operating table in the supine position. Anesthesia was achieved with general endotracheal anesthesia and the table was then turned 180 degrees. The patient's left post auricular hair was shaved and she was prepped and draped in the usual sterile fashion. The implant position was marked out on the postauricular skin behind the left ear. The skin thickness was measured at the implant site, and the incision was injected with local anesthesia. A curvilinear postauricular incision was then made with 15 blade that was carried down to the periosteum overlying the left mastoid. The soft tissues were elevated off of the periosteum of the mastoid creating a soft tissue cavity for the implant. The periosteum was then incised just posterior to the left external auditory canal and was then elevated off of the left mastoid bone. The location for the bone-anchored portion of the implant was then determined and marked out on the left mastoid bone. The wound was then retracted open with Weatlander retractors. The 3 mm deep implant bony wound was created using the surgical drill with copious irrigation.. This bony incision was made using a template provided with the implant and was approximately 3 mm deep at the completion of the bony dissection. A ramp was made leading to the superior portion of the chong implant space with a 4 mm bur and the surgical drill. The implant was then placed and secured with a 39 mm strap using the provided titanium screws. Once the implant was in place and secured, the wound was closed by closing the periosteum with interrupted 4-0 Monocryl sutures and then closing the skin and subcutaneous tissues using interrupted 4-0 Monocryl sutures subcu and a running 5-0 Prolene on the skin. At this point the wound was cleaned and covered with triple antibiotic ointment. The procedure was then terminated and control of the patient was returned to anesthesia where she underwent an uneventful reversal of anesthesia and extubation and was taken to the recovery room in stable condition. There were no operative or anesthetic complications.
--- NOTE | 2024-05-27 15:30 | ANE.PACU2 ---
Inpatient post-anesthesia follow up: Airway intact: Yes Vital signs: Temperature 97.0 F Pulse Rate 69 Respiratory Rate 17 Blood Pressure 152/92 Pulse Oximetry 99 Oxygen Delivery Me thod Room Air Oxygen Flow Rate 2 Fraction of Inspir ed Oxygen Hydration adequate: Yes Nausea and vomiting: No Pain level: 1 Mental status: Baseline
== END 2024-05-27 15:34 | disposition home or self-care (01) ==
PROVIDERS: PCP Internal Medicine; Visit Provider Specialist
PROC: (CPT 69714; principal; 2024-05-27 12:25)
DX: H90.72 Mixed conductive and sensorineural hearing loss, unilateral, left ear, with unrestricted hearing on the contralateral side (principal); G47.30 Sleep apnea, unspecified; I48.91 Unspecified atrial fibrillation; I10 Essential (primary) hypertension; E11.9 Type 2 diabetes mellitus without complications; G43.911 Migraine, unspecified, intractable, with status migrainosus; E66.01 Morbid (severe) obesity due to excess calories; Z68.36 Body mass index [BMI] 36.0-36.9, adult; Z79.899 Other long term (current) drug therapy; Z79.890 Hormone replacement therapy; Z79.01 Long term (current) use of anticoagulants; Z79.82 Long term (current) use of aspirin; Z79.84 Long term (current) use of oral hypoglycemic drugs; Z79.4 Long term (current) use of insulin; Z88.8 Allergy status to other drugs, medicaments and biological substances; Z88.2 Allergy status to sulfonamides; Z88.5 Allergy status to narcotic agent; K21.9 Gastro-esophageal reflux disease without esophagitis; Z86.73 Personal history of transient ischemic attack (TIA), and cerebral infarction without residual deficits; E03.9 Hypothyroidism, unspecified; H93.13 Tinnitus, bilateral
CPT/HCPCS: 69714; 36416; 82962; C1713; J0690; J1100; J2405; J2704; J3010; J3490; J7030

== ENCOUNTER 2024-06-30 08:14 | Outpatient (CLI) | payer MEDICAID, SELFPAY ==
--- NOTE | 2024-06-30 08:17 | CT_ITS ---
WS: [id number] CT CHEST TECHNIQUE: Contrast enhanced CT of the chest with coronal and sagittal reformatted images. CLINICAL INFORMATION: LYMPHOMA COMPARISON: CT 01/18/2024 DLP: 532.[address] scans at [facility] use at least one of these dose optimization techniques: automated exposure control; mA and/or kV adjustment per patient size (includes targeted exams where dose is matched to clinical indication); or iterative reconstruction. FINDINGS: Mild chronic emphysematous changes. No acute pulmonary infiltrates. No focal pneumonia. Slight subsegmental atelectasis in the lingula. Stable small focus of groundglass attenuation LEFT lower lobe posterior medially likely inflammatory. Normal caliber thoracic aorta. Proximal main pulmonary arteries are normal. No mediastinal or hilar lymphadenopathy. Cholecystectomy clips. Fatty liver. Hepatomegaly. Normal GE junction. Normal portal vein and splenic vein. Adrenal glands are normal. Celiac and SMA are patent in the upper abdomen. Chronic RIGHT rib fracture with callus formation. CT/CT chest w con* [id number] IMPRESSION: 1. Mild chronic emphysematous changes. No acute pulmonary infiltrates. 2. Slight atelectasis with small amount of groundglass opacity LEFT lower lobe is unchanged likely inflammatory. 3. Subsegmental atelectasis in the lingula. 4. No mediastinal or hilar lymphadenopathy. 5. Hepatomegaly with fatty infiltration. 6. LEFT thyroidectomy.
[2024-06-30] MEDS: iohexol 350 mg/mL 500 mL Btl (per mL) IV (08:46)
== END 2024-06-30 08:15 | disposition home or self-care (01) ==
PROVIDERS: PCP Internal Medicine; Visit Provider Internal Medicine
DX: C85.90 Non-Hodgkin lymphoma, unspecified, unspecified site (principal); J43.9 Emphysema, unspecified; R91.8 Other nonspecific abnormal finding of lung field; J98.11 Atelectasis; R16.0 Hepatomegaly, not elsewhere classified; K76.0 Fatty (change of) liver, not elsewhere classified; Z98.890 Other specified postprocedural states; Z90.49 Acquired absence of other specified parts of digestive tract; S22.31XD Fracture of one rib, right side, subsequent encounter for fracture with routine healing; X58.XXXD Exposure to other specified factors, subsequent encounter
CPT/HCPCS: 71260

== ENCOUNTER 2024-07-09 13:07 | Oncology outpatient (recurring) (ONCR) | payer MEDICAID, SELFPAY ==
[2024-07-09 13:27] LABS: Basophils % 0.6 %; Eosinophils # 0.3 10^3/uL (0.0-0.8); Eosinophils % 4.5 %; Hematocrit 39.1 % (36-47); Lymphocytes % 31.9 %; Mean Corpuscular HGB Conc 32.7 g/dL (30-55); Mean Corpuscular Hemoglobin 28.4 pg (27-33); Mean Corpuscular Volume 86.7 fl (85-98); Mean Platelet Volume 9.3 fL (7.4-10.4); Monocytes # 0.5 10^3/uL (0.2-0.9); Monocytes % 8.6 %; Neutrophils # 3.33 10^3/uL (1.8-7.7); Neutrophils % 54.1 %; Nucleated Red Blood Cells % 0 %; Platelet Count 213 10^3/cmm (157-399); Red Blood Count 4.51 10^6/uL (3.85-5.65); Red Cell Distribution Width 12.6 % (12.1-15.1); White Blood Count 6.17 10^3/uL (3.29-11.43)
[2024-07-09 13:46] LABS: Alanine Aminotransferase 22 U/L (0-33); Albumin Level 4.1 g/dL (3.5-5.2); Alkaline Phosphatase 93 U/L (35-105); Anion Gap 13.8 (5-19); Aspartate Amino Transferase 17 U/L (0-32); Blood Urea Nitrogen 12 mg/dL (8-23); Calcium 9.1 mg/dL (8.5-10.5); Carbon Dioxide 28 mmol/L (22-29); Chloride 98 mmol/L (98-107); Globulin 2.6 g/dL (1.3-4.6); Glomerular Filtration Rate 72.2 mL/min (90-130); Glucose 104 mg/dL (65-115); Lactate Dehydrogenase 149 U/L (135-214); Osmolality Calculated 282 mOsm/kg (285-295); Potassium 3.8 mmol/L (3.5-5.1); Sodium 136 mmol/L (136-145); Total Bilirubin 0.2 mg/dL (0.15-1.2); Total Protein 6.7 g/dL (6.6-8.7)
== END 2024-07-21 23:59 | disposition home or self-care (01) ==
PROVIDERS: Internal Medicine; PCP Internal Medicine; Visit Provider Internal Medicine Hematology & Oncology
DX: C85.21 Mediastinal (thymic) large B-cell lymphoma, lymph nodes of head, face, and neck (principal); Z79.899 Other long term (current) drug therapy; Z45.2 Encounter for adjustment and management of vascular access device
CPT/HCPCS: 36415; 80053; 83615; 85025; 99213

== ENCOUNTER → 2024-08-12 08:48 | Outpatient (BNVA) | payer MEDICAID, SELFPAY | PROVIDERS: PCP Internal Medicine; Visit Provider Student in an Organized Health Care Education/Training Program | DX: M17.12 Unilateral primary osteoarthritis, left knee (principal) | CPT/HCPCS: 20610; 99213; J3301; J9999 ==

== ENCOUNTER 2025-01-26 16:34 | Emergency (ER) | payer MEDICAID, SELFPAY ==
--- OUTSIDE RECORDS SUMMARY | 2025-01-26 16:39 | XMS_ITS | Encounter Summary ---
Author Organization [facility] Address [address] [place] [address] Care Team Providers Care Content Analyst Name Role Phone Artur Chávez MD Primary Care Provider Encounter Details Date Type Department Care Team (Late Contact Info) Description 08/02/[address] [facility] [address] [place] [address] Araceli, External Provider [address] [place] [address] Social History Tobacco Use Types Packs/Day Years Used Date Smoking Tobacco: Never Smokeless Tobacco: Never Alcohol Use Standard Drinks/Week Comments No 0 (1 standard drink = 0.6 oz pur e alcohol) Comments No Sex and Gender Information Value Date Recorded Sex Assigned at Not on file Legal Sex Female 12:24 PM SLAGGER Gender Identity Not on file Sexual Orientation Not on file COVID-19 Exposure Response Date Recorded In the last month, have you been in contact with someone who was confirmed or suspected to have Coronavirus / COVID-19? No / Unsure 08/02/2021 9:28 AM CDT documented as of this encounter Plan of Treatment Upcoming Encounters Date Type Department Care Team (Late Contact Info) Description 02/23/2025 7:[address] [facility] [address] [place] [address] Christel Bernal FNP [address] [place] [address] 04/22/2025 8:40 AM SLAGGER Office Visit [facility] [address] [place] [address] Christel Bernal FNP [address] [place] [address] 08/19/2025 10:30 AM CDT Office Visit [facility] - [place] [address] [place] [address] Gerald Leahy MD [address] [place] [address] documented as of this encounter Procedures Procedure Name Priority Date/Time Associated Diagnosis Comments REFERENCE LAB PROCESSING FEE Routine 08/02/2021 9:40 AM CDT documented in this encounter Results * REFERENCE LAB PROCESSING FEE (08/02/2021 9:40 AM CDT) REFERENCE LAB SENDOUT Sent to Ref Lab 08/02/2021 11:03 AM CDT [facility] Other, specify BLOOD SPECIMEN / Unknown 08/02/2021 9:40 AM CDT 08/02/2021 9:42 AM CDT us External Provider Aura CHEMISTRY ORDERABLES Crystal l Result [facility] CLIA # [id number] [address] [place] [address] documented in this encounter Visit Diagnoses Not on filedocumented in this encounter Additional Health Concerns Infection Onset Date Last Indicated Resolved Time R/O GI Pathogen 05/30/2022 05/30/2022 05/30/2022 1 1:25 AM SLAGGER documented as of this encounter Care Teams Content Analyst Relationship Specialty Start Date End Date Artur Chávez MD [address] [place] [id number] PCP - General Family Practice 08/19/24 documented as of this encounter
--- OUTSIDE RECORDS SUMMARY | 2025-01-26 16:39 | XMS_ITS | Encounter Summary ---
Author Organization [facility] Address [address] [place] [address] Care Team Providers Care Head Of Data Name Role Phone Susi Pratt MD Primary Care Provider [phone]- [phone] Reason for Referral * Radiology Services (Routine) - Closed Specialty Diagnoses / Procedures Referred By Contirasema escudero Referred To Contact Radiology Diagnoses Large B-cell lymphoma (CMS/HCC) Procedures ECHOCARDIOGRAM W/ CONTRAST AGENT ECHO COMPLETE Sugar Aponte MD [address] [address] Phone: tel: fax: [facility] Echo [address] [place] [address] Phone: tel: fax: Referral ID Status Reason Start Date Expiration Date Visits Re quested Visits Authorized [id number] Closed 08/13/2020 09/13/2021 1 1 Encounter Details Date Type Department Care Team (Late st Contact Info) Description 08/20/2020 Ancillary Orders [facility] [address] [facility] [address] [place] [address] Sugar Aponte MD [address] [address] Large B-cell lymphoma (CMS/HCC) Social History Tobacco Use Types Packs/Day Years Used Date Smoking Tobacco: Never Smokeless Tobacco: Never Alcohol Use Standard Drinks/Week Comments No 0 (1 standard drink = 0.6 oz pur e alcohol) Comments No Sex and Gender Information Value Date Recorded Sex Assigned at Not on file 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 No / Unsure 08/20/2020 10:40 AM CDT documented as of this encounter Plan of Treatment Not on file documented as of this encounter Results * ECHOCARDIOGRAM W/ CONTRAST AGENT (08/20/2020 3:08 PM CDT) EJECTION FRACTION 68 INTERFACE SYSTEM 08/20/2020 2:24 PM CDT Narrative INTERFACE SYSTEM - 08/23/2020 7:54 AM CDT [facility]ovascular Services Echocardiography Laboratory [address] [place] [id number] Transthoracic Echocardiography Patient: Sharron Study ECHO Maris ID: COMPLETE-OP Gender: F : 1960 Age: 60 Room: Study 08/20/2020 Pt Outpatient Date: Status: Study 02:24:01 PM CSN #: [id number] Time: Ordering:Sugar Aponte Interpreting:Dirk Mazariegos MD Research Associate Quality Control Qc: Liz Ray Indications and History: Large B-cell lymphoma. Summary and Conclusion: - Left ventricle: The cavity size was normal. Wall thickness was normal. Systolic function was normal. Assessment of systolic function was difficult due to image quality. The left ventricular ejection fraction was 68%, by biplane method of disks. The visually estimated ejection fraction was in the range of 60% to 65%. Although no diagnostic regional wall motion abnormality was identified, this possibility cannot be completely excluded on the basis of this study. Left ventricular diastolic function parameters were normal. - Right ventricle: The cavity size was normal. Systolic function was normal. Systolic pressure was within the normal range. - Mitral valve: Mild regurgitation. - Tricuspid valve: Mild regurgitation. Procedure information: No prior study was available for comparison. Study status: Routine. Procedure: Transthoracic echocardiography. Image quality was adequate. The study was technically difficult. Scanning was performed from the parasternal, apical, subcostal, and suprasternal notch acoustic windows. Intravenous contrast (Definity) was administered. Study components: M-mode, 2D, complete spectral Doppler, and color Doppler. Height: 172.7cm. Height: 68in. Weight: 100.7kg. Weight: 221.5lb. BMI: 33.8kg/m\S\2. BSA: 2.23m\S\2. Blood pressure: 132/78 Study date: 08/20/2020. Study time: 02:24 PM. Location: Echo laboratory. Cardiac Anatomy: LEFT VENTRICLE: The cavity size was normal. Wall thickness was normal. Systolic function was normal. Assessment of systolic function was difficult due to image quality. The left ventricular ejection fraction was 68%, by biplane method of disks. The visually estimated ejection fraction was in the range of 60% to 65%. Although no diagnostic regional wall motion abnormality was identified, this possibility cannot be completely excluded on the basis of this study. Left ventricular diastolic function parameters were normal. RIGHT VENTRICLE: The cavity size was normal. Systolic function was normal. Systolic pressure was within the normal range. LEFT ATRIUM: The atrium was normal in size. RIGHT ATRIUM: The atrium was normal in size. ATRIAL SEPTUM: No obvious PFO or ASD identified by 2D imaging and color Doppler. AORTIC VALVE: Probably trileaflet; normal thickness leaflets. Mobility was not restricted. Doppler: There was no stenosis. No significant regurgitation. Peak velocity ratio of LVOT to aortic valve: 0.85. Peak gradient (S): 9mm Hg. MITRAL VALVE: Structurally normal valve. Mobility was not restricted. No echocardiographic evidence for prolapse. Doppler: There was no evidence for stenosis. Mild regurgitation. Valve area by pressure half-time: 4.53cm\S\2. Indexed valve area by pressure half-time: 2.03cm\S\2/m\S\2. Peak gradient (D): 5mm Hg. TRICUSPID VALVE: Structurally normal valve. Mobility was not restricted. Doppler: There was no evidence for stenosis. Mild regurgitation. Peak gradient (D): 34mm Hg. PULMONIC VALVE: Not well visualized. The valve appears to be grossly normal. Doppler: There was no evidence for stenosis. No significant regurgitation. Peak gradient (S): 3mm Hg. PERICARDIUM: A minimal pericardial effusion and/or fat pad was identified. AORTA: Aortic root: The aortic root was normal in size. Aortic arch: The aortic arch was normal in size. SYSTEMIC VEINS: Inferior vena cava: The vessel was normal in size. INTRACARDIAC MASS THROMBUS: No apparent intracavitary masses or thrombi detected. 2D measurements Doppler measurements Left ventricle LVOT LVID ED, PLAX 4.6 cm Peak ivett, S 125.43 cm/sec LVID ES, PLAX 2.8 cm Peak gradient, S 6 mm Hg FS, endocardial, 39 % Aortic valve PLAX Peak ivett, S 147.82 cm/sec Major axis ES, A4C 7.0 cm Peak gradient, S 9 mm Hg Minor axis ED, A4C 7.0 cm Peak ivett ratio, 0.85 Major axis ED, A2C 8.2 cm LVOT/AV Major axis ES, A2C 6.2 cm Mitral valve LVID, ES 2.8 cm Peak E ivett 112.75 cm/sec LVPW, ED 1.0 cm Peak A ivett 97.25 cm/sec IVS/LVPW ratio, ED 0.93 Deceleration 167 ms Vol, ED, 1-p A2C 76 ml time Vol, ES, 1-p A2C 53 ml Pressure 49 ms EF, 1-p A2C 70 % half-time Vol ED, 1-p A4C 89 ml Peak gradient, D 5 mm Hg Vol ES, 1-p A4C 28 ml Peak E/A ratio 1.16 EF, 1-p A4C 69 % Area (PHT) 4.53 cm\S\2 SV, 1-p A4C 61 ml Area/bsa (PHT) 2.03 cm\S\2/m\S\2 EDV/bsa, 1-p A4C 40 ml/m\S\2 Regurg vena 3.4 cm ESV/bsa, 1-p A4C 12 ml/m\S\2 contracta SV/bsa, 1-p A4C 27 ml/m\S\2 Tricuspid valve Vol ED, 2-p 84 ml Peak gradient, D 34 mm Hg Vol ES, 2-p 27 ml Regurg peak ivett 293.34 cm/sec EF, 2-p 68 % Peak RV-RA 34 mm Hg SV, 2-p 23 ml gradient, S Vol/bsa, ED, 2-p 38 ml/m\S\2 Pulmonic valve Vol/bsa, ES, 2-p 12 ml/m\S\2 Peak ivett, S 85.4 cm/sec SV/bsa, 2-p 10.3 ml/m\S\2 Peak gradient, S 3 mm Hg Ventricular septum IVS, ED 1.0 cm Aorta Root diam 2.9 cm Left atrium AP dim 3.8 cm AP dim index 1.7 cm/m\S\2 SI dim, A4C 4.7 cm Area ES, A4C 16 cm\S\2 Vol, S 51 ml Vol/bsa, S 23 ml/m\S\2 Vol, ES, 1-p A4C 46 ml Vol/bsa, ES, 1-p A4C 20 ml/m\S\2 Vol, ES, 1-p A2C 50 ml Vol/bsa, ES, 1-p A2C 22 ml/m\S\2 Vol, ES, A/L 48 ml Vol/bsa, ES, A/L 21 ml/m\S\2 Right atrium SI dim, ES 4.8 cm SI dim, ES, A4C 4.8 cm Right ventricle RVID ED, PLAX 3.4 cm Minor axis ED, A4C 4.8 cm RVID ED 3.4 cm [facility] are accredited with the [facility] Accreditation Commission - Echocardiography. Prepared and Electronically Authenticated Dirk Mazariegos MD Confirmed 08/23/2020 07:54 Procedure Note Dirk Mazariegos MD - 08/23/2020 [facility] Echocardiography Laboratory [address] [place] [id number] Transthoracic Echocardiography Patient: Sharron Study ECHO Maris ID: COMPLETE-OP Gender: F : 1960 Age: 60 Room: Study 08/20/2020 Pt Outpatient Date: Status: Study 02:24:01 PM CSN #: [id number] Time: Ordering:Sugar Aponte Interpreting:Dirk Mazariegos MD Research Associate Quality Control Qc: Liz Ray Indications and History: Large B-cell lymphoma. Summary and Conclusion: - Left ventricle: The cavity size was normal. Wall thickness was normal. Systolic function was normal. Assessment of systolic function was difficult due to image quality. The left ventricular ejection fraction was 68%, by biplane method of disks. The visually estimated ejection fraction was in the range of 60% to 65%. Although no diagnostic regional wall motion abnormality was identified, this possibility cannot be completely excluded on the basis of this study. Left ventricular diastolic function parameters were normal. - Right ventricle: The cavity size was normal. Systolic function was normal. Systolic pressure was within the normal range. - Mitral valve: Mild regurgitation. - Tricuspid valve: Mild regurgitation. Procedure information: No prior study was available for comparison. Study status: Routine. Procedure: Transthoracic echocardiography. Image quality was adequate. The study was technically difficult. Scanning was performed from the parasternal, apical, subcostal, and suprasternal notch acoustic windows. Intravenous contrast (Definity) was administered. Study components: M-mode, 2D, complete spectral Doppler, and color Doppler. Height: 172.7cm. Height: 68in. Weight: 100.7kg. Weight: 221.5lb. BMI: 33.8kg/m\S\2. BSA: 2.23m\S\2. Blood pressure: 132/78 Study date: 08/20/2020. Study time: 02:24 PM. Location: Echo laboratory. Cardiac Anatomy: LEFT VENTRICLE: The cavity size was normal. Wall thickness was normal. Systolic function was normal. Assessment of systolic function was difficult due to image quality. The left ventricular ejection fraction was 68%, by biplane method of disks. The visually estimated ejection fraction was in the range of 60% to 65%. Although no diagnostic regional wall motion abnormality was identified, this possibility cannot be completely excluded on the basis of this study. Left ventricular diastolic function parameters were normal. RIGHT VENTRICLE: The cavity size was normal. Systolic function was normal. Systolic pressure was within the normal range. LEFT ATRIUM: The atrium was normal in size. RIGHT ATRIUM: The atrium was normal in size. ATRIAL SEPTUM: No obvious PFO or ASD identified by 2D imaging and color Doppler. AORTIC VALVE: Probably trileaflet; normal thickness leaflets. Mobility was not restricted. Doppler: There was no stenosis. No significant regurgitation. Peak velocity ratio of LVOT to aortic valve: 0.85. Peak gradient (S): 9mm Hg. MITRAL VALVE: Structurally normal valve. Mobility was not restricted. No echocardiographic evidence for prolapse. Doppler: There was no evidence for stenosis. Mild regurgitation. Valve area by pressure half-time: 4.53cm\S\2. Indexed valve area by pressure half-time: 2.03cm\S\2/m\S\2. Peak gradient (D): 5mm Hg. TRICUSPID VALVE: Structurally normal valve. Mobility was not restricted. Doppler: There was no evidence for stenosis. Mild regurgitation. Peak gradient (D): 34mm Hg. PULMONIC VALVE: Not well visualized. The valve appears to be grossly normal. Doppler: There was no evidence for stenosis. No significant regurgitation. Peak gradient (S): 3mm Hg. PERICARDIUM: A minimal pericardial effusion and/or fat pad was identified. AORTA: Aortic root: The aortic root was normal in size. Aortic arch: The aortic arch was normal in size. SYSTEMIC VEINS: Inferior vena cava: The vessel was normal in size. INTRACARDIAC MASS THROMBUS: No apparent intracavitary masses or thrombi detected. 2D measurements Doppler measurements Left ventricle LVOT LVID ED, PLAX 4.6 cm Peak ivett, S 125.43 cm/sec LVID ES, PLAX 2.8 cm Peak gradient, S 6 mm Hg FS, endocardial, 39 % Aortic valve PLAX Peak ivett, S 147.82 cm/sec Major axis ES, A4C 7.0 cm Peak gradient, S 9 mm Hg Minor axis ED, A4C 7.0 cm Peak ivett ratio, 0.85 Major axis ED, A2C 8.2 cm LVOT/AV Major axis ES, A2C 6.2 cm Mitral valve LVID, ES 2.8 cm Peak E ivett 112.75 cm/sec LVPW, ED 1.0 cm Peak A ivett 97.25 cm/sec IVS/LVPW ratio, ED 0.93 Deceleration 167 ms Vol, ED, 1-p A2C 76 ml time Vol, ES, 1-p A2C 53 ml Pressure 49 ms EF, 1-p A2C 70 % half-time Vol ED, 1-p A4C 89 ml Peak gradient, D 5 mm Hg Vol ES, 1-p A4C 28 ml Peak E/A ratio 1.16 EF, 1-p A4C 69 % Area (PHT) 4.53 cm\S\2 SV, 1-p A4C 61 ml Area/bsa (PHT) 2.03 cm\S\2/m\S\2 EDV/bsa, 1-p A4C 40 ml/m\S\2 Regurg vena 3.4 cm ESV/bsa, 1-p A4C 12 ml/m\S\2 contracta SV/bsa, 1-p A4C 27 ml/m\S\2 Tricuspid valve Vol ED, 2-p 84 ml Peak gradient, D 34 mm Hg Vol ES, 2-p 27 ml Regurg peak ivett 293.34 cm/sec EF, 2-p 68 % Peak RV-RA 34 mm Hg SV, 2-p 23 ml gradient, S Vol/bsa, ED, 2-p 38 ml/m\S\2 Pulmonic valve Vol/bsa, ES, 2-p 12 ml/m\S\2 Peak ivett, S 85.4 cm/sec SV/bsa, 2-p 10.3 ml/m\S\2 Peak gradient, S 3 mm Hg Ventricular septum IVS, ED 1.0 cm Aorta Root diam 2.9 cm Left atrium AP dim 3.8 cm AP dim index 1.7 cm/m\S\2 SI dim, A4C 4.7 cm Area ES, A4C 16 cm\S\2 Vol, S 51 ml Vol/bsa, S 23 ml/m\S\2 Vol, ES, 1-p A4C 46 ml Vol/bsa, ES, 1-p A4C 20 ml/m\S\2 Vol, ES, 1-p A2C 50 ml Vol/bsa, ES, 1-p A2C 22 ml/m\S\2 Vol, ES, A/L 48 ml Vol/bsa, ES, A/L 21 ml/m\S\2 Right atrium SI dim, ES 4.8 cm SI dim, ES, A4C 4.8 cm Right ventricle RVID ED, PLAX 3.4 cm Minor axis ED, A4C 4.8 cm RVID ED 3.4 cm [facility] are accredited with the [employer]reditation [employer] - Echocardiography. Prepared and Electronically Authenticated Dirk Mazariegos MD Confirmed 08/23/2020 07:54 us Sugar Aponte MD ORDERABLES Final Resu lt INTERFACE SYSTEM Refer to clinic/hospital department documented in this encounter Visit Diagnoses Diagnosis Large B-cell lymphoma (CMS/HCC) Other malignant lymphomas, unspecified site, extranodal and solid organ sites Large B-cell lymphoma (CMS/HCC) Other malignant lymphomas, unspecified site, extranodal and solid organ sites documented in this encounter Care Teams Head Of Data Relationship Specialty Start Date End Date Susi Pratt MD [address] [place], [place] [address] PCP - General Internal Medicine 01/24/15 documented as of this encounter
--- OUTSIDE RECORDS SUMMARY | 2025-01-26 16:39 | XMS_ITS | Encounter Summary ---
Author Organization [facility] Address [address] [place] [address] Care Team Providers Care Electron Microprobe Operator Name Role Phone Artur Chávez MD Primary Care Provider [phone]- [phone] Reason for Visit * Reason Comments Other Encounter Details Date Type Department Care Team (Late st Contact Info) Description 10/01/2024 Telephone [facility] Medicine-[place] [address] [place] [address] Christel Beranl FNP [address] [place] [address] Other Social History Tobacco Use Types Packs/Day Years Used Date Smoking Tobacco: Never Passive Smoke Exposure: Never Smokeless Tobacco: Never Alcohol Use Standard Drinks/Week Comments No 0 (1 standard drink = 0.6 oz pur e alcohol) Feeling Safe Answer Date Recorded Are you in a relationship wi th someone who hurts you emotionally and/or physically? 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 Topic: Patient or Caregiver Communication Request >> Oct 01, 2024 12:25 PM Noemy Henry wrote: Patient or Caregiver requesting that a message be sent to Care Team Caller: Maris Mcdermott Patient/Caregiver Callback Number: Telephone Information: Call Notes: patient received a letter that she missed an appointment on 09/25/2024 - states she was an inpatient in [place] at that time. documented in this encounter Plan of Treatment Upcoming Encounters Date Type Department Care Team (Late st Contact Info) Description 02/23/2025 7:30 AM BOAT OUTFITTER Appointment [address] [phone] Christel Bernal FNP [address] [place] [address] 04/22/2025 8:40 AM BOAT OUTFITTER Office Visit [facility] Family Medicine[address] [address] Christel eBrnal FNP [address] [place] [address] 08/19/2025 10:30 AM CDT Office Visit [facility] Neurology - [place] [address] [address] Gerald Leahy MD [address] [address] documented as of this encounter Visit Diagnoses Not on filedocumented in this encounter Additional Health Concerns Assessment Noted Time PHQ-9 Depression Total Score: 5 09/19/19 25 9:48 AM CDT documented as of this encounter Care Teams Electron Microprobe Operator Relationship Specialty Start Date End Date Artur Chávez MD [address] [place] [address] PCP - General Family Practice 08/19/24 documented as of this encounter
--- OUTSIDE RECORDS SUMMARY | 2025-01-26 16:39 | XMS_ITS | Encounter Summary ---
Author Organization [facility] Address [address] [place] [address] Care Team Providers Care Lens Matcher Name Role Phone Susi Pratt MD Primary Care Provider [phone]- [phone] Reason for Referral * CT Scan (Routine) - Closed Specialty Diagnoses / Procedures Referred By Jeanne escudero Referred To Contact Radiology Diagnoses Mass of neck Neck swelling Procedures CT SOFT TISSUE NECK W CONTRAST Susi Pratt MD [address] [place] [address] Phone: tel: fax: [facility] CT Scan [address] [place] [address] Phone: tel: fax: Referral ID Status Reason Start Date Expiration Date Visits Re quested Visits Authorized [id number] Closed 07/02/2020 09/30/2020 1 1 ORATE PILOT Encounter Details Date Type Department Care Team (Late st Contact Info) Description 06/29/2020 Ancillary Orders [facility] Imaging Services [place] [address] [place] [address] Susi Pratt MD [address] [place] [address] Mass of neck; Neck swelling Social History Tobacco Use Types Packs/Day Years Used Date Smoking Tobacco: Never Smokeless Tobacco: Never Alcohol Use Standard Drinks/Week Comments No 0 (1 standard drink = 0.6 oz pur e alcohol) Comments No Sex and Gender Information Value Date Recorded Sex Assigned at Not on file 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 No / Unsure 07/02/2020 7:43 AM CORPORATE PILOT documented as of this encounter Plan of Treatment Not on file documented as of this encounter Results * CT SOFT TISSUE NECK W CONTRAST (07/02/2020 9:10 AM CORPORATE PILOT) Anatomical Region Laterality Modality Neck Computed Tomogra phy 07/02/2020 9:10 AM CORPORATE PILOT Impressions 07/02/2020 9:28 AM CORPORATE PILOT IMPRESSION: 1. There are multiple abnormally enlarged left cervical level four and five chain lymph nodes, corresponding to the area palpable concern. The largest lymph node measures up to 2.2 cm and has some areas of central necrosis. The appearance is concerning for sharita metastatic disease although no primary neoplastic mass lesion is visible. Dictated from location 11. Narrative 07/02/2020 9:[address] SOFT TISSUE NECK W CONTRAST Ordering provider: SUSI PRATT History: 60 years Female with Mass of neck; Neck swelling. See Diagnosis. Comparison: None. Technique: CT soft tissues neck was performed with IV contrast IOPAMIDOL 61 % INTRAVENOUS SOLUTION (SINGLE USE VIAL) Given:100 mL The images are constructed with use of iterative reconstruction technique. Findings: Suprahyoid Neck: Nasopharyngeal mucosa and the nasal cavity are normal in appearance. The visualized oral mucosa, root of tongue, sublingual, and submandibular spaces appear normal. The bilateral die polisher, parotid, and parapharyngeal spaces appear normal. Infrahyoid neck: Hyoid bone and the thyroid cartilage are unremarkable. Epiglottis and valleculae are normal. The aryepiglottic folds and piriform recesses are symmetric. Subglottic larynx is normal. Status post left thyroidectomy. Several subcentimeter hypoattenuating nodules are present in the right thyroid lobe. Lymph nodes: Coarse findings the area of palpable concern there are multiple abnormally enlarged left cervical chain five lymph nodes, one of which is centrally necrotic and measures approximately 1.7 x 2.2 cm (series 3, image 65). An additional left cervical level five lymph node measures 1.0 x 1.5 cm (series 3, image 45). Additionally, there is enlarged left cervical chain level four lymph node that measures 12 x 13 mm (series 3, image 62). The scattered right-sided cervical chain lymph nodes demonstrate no concerning imaging features. Brain: The visualized portions of the brain are unremarkable. Orbits: Extraocular muscles, lacrimal glands, and the globes appear normal. Bones: Visualized calvarium and skull base appear normal. Mastoid air cells are clear. Temporomandibular joints are unremarkable. The patient is edentulous. Minimal cervical spine degenerative changes are visible. Chest: Visualized portions of the lung apices are normally aerated. Procedure Note Marlon Chambers MD - 07/02/2020 CT SOFT TISSUE NECK W CONTRAST Ordering provider: SUSI PRATT History: 60 years Female with Mass of neck; Neck swelling. See Diagnosis. Comparison: None. Technique: CT soft tissues neck was performed with IV contrast IOPAMIDOL 61 % INTRAVENOUS SOLUTION (SINGLE USE VIAL) Given:100 mL The images are constructed with use of iterative reconstruction technique. Findings: Suprahyoid Neck: Nasopharyngeal mucosa and the nasal cavity are normal in appearance. The visualized oral mucosa, root of tongue, sublingual, and submandibular spaces appear normal. The bilateral die polisher, parotid, and parapharyngeal spaces appear normal. Infrahyoid neck: Hyoid bone and the thyroid cartilage are unremarkable. Epiglottis and valleculae are normal. The aryepiglottic folds and piriform recesses are symmetric. Subglottic larynx is normal. Status post left thyroidectomy. Several subcentimeter hypoattenuating nodules are present in the right thyroid lobe. Lymph nodes: Coarse findings the area of palpable concern there are multiple abnormally enlarged left cervical chain five lymph nodes, one of which is centrally necrotic and measures approximately 1.7 x 2.2 cm (series 3, image 65). An additional left cervical level five lymph node measures 1.0 x 1.5 cm (series 3, image 45). Additionally, there is enlarged left cervical chain level four lymph node that measures 12 x 13 mm (series 3, image 62). The scattered right-sided cervical chain lymph nodes demonstrate no concerning imaging features. Brain: The visualized portions of the brain are unremarkable. Orbits: Extraocular muscles, lacrimal glands, and the globes appear normal. Bones: Visualized calvarium and skull base appear normal. Mastoid air cells are clear. Temporomandibular joints are unremarkable. The patient is edentulous. Minimal cervical spine degenerative changes are visible. Chest: Visualized portions of the lung apices are normally aerated. IMPRESSION: 1. There are multiple abnormally enlarged left cervical level four and five chain lymph nodes, corresponding to the area palpable concern. The largest lymph node measures up to 2.2 cm and has some areas of central necrosis. The appearance is concerning for sharita metastatic disease although no primary neoplastic mass lesion is visible. Dictated from location 11. us Susi Pratt MD CT ORDERABLES Final Resu lt documented in this encounter Visit Diagnoses Diagnosis Mass of neck Swelling, mass, or lump in head and neck Neck swelling Swelling, mass, or lump in head and neck Mass of neck Swelling, mass, or lump in head and neck Neck swelling Swelling, mass, or lump in head and neck documented in this encounter Care Teams Lens Matcher Relationship Specialty Start Date End Date Susi Pratt MD [address] [place] [address] PCP - General Internal Medicine 01/24/15 documented as of this encounter
--- OUTSIDE RECORDS SUMMARY | 2025-01-26 16:39 | XMS_ITS ---
Author Organization [facility] tone Address [address] [place] [address] Care Team Providers Care Instructional Systems Design Consultant Name Role Phone Artur Chávez MD Primary Care Provider [phone] Active Problems Problem Noted Date Diagnosed Date History of lymphoma 11/07/2024 Akathisia 11/07/2024 Assessment & Plan (11/28/2024 1:47 PM CDT): Orders: AMB REFERRAL TO NEUROLOGY Hyponatremia 11/07/2024 Hematochezia 05/30/2022 Abdominal pain 05/30/2022 Gastrointestinal hemorrhage 05/30/2022 Type 2 diabetes mellitus with hyperglycemia 04/2021 Leucopenia 01/20/2022 Visual changes 01/20/2022 Elevated blood sugar 01/19/2022 Dizziness 01/19/2022 Syncope 11/27/2020 Other secondary thrombocytopenia 11/27/2020 Overview (11/27/2020): From chemotherapy Sinus tachycardia 11/15/2020 Moderate protein-calorie malnutrition 10/25/2020 Chronic diarrhea 10/22/2020 Anemia in neoplastic disease 09/29/2020 Polypharmacy 09/23/2020 Acquired atrophy of thyroid 09/17/2020 Edentulous 09/17/2020 History of atrial fibrillation 09/17/2020 Hypercholesterolemia 09/17/2020 Hypokalemia 09/17/2020 Assessment & Plan (11/28/2024 1:47 PM CDT): Orders: COMPREHENSIVE METABOLIC PANEL; Future Injury of low back 09/17/2020 Pure hypertriglyceridemia 09/17/2020 Strain of neck muscle 09/17/2020 [facility] current use of insulin 08/24/2020 Assessment & Plan (11/28/2024 1:47 PM CDT): Diabetes: Stable. Continue current management. Admission for chemotherapy 08/23/2020 Depression 08/23/2020 Hypothyroidism 08/23/2020 Headache 08/23/2020 Assessment & Plan (11/28/2024 1:47 PM CDT): Orders: AMB REFERRAL TO NEUROLOGY Body aches 08/12/2020 Chronic cough 08/12/2020 History of TIA (transient ischemic attack) and s troke 07/14/2020 Assessment & Plan (11/28/2024 1:47 PM CDT): Orders: AMB REFERRAL TO NEUROLOGY Paroxysmal atrial fibrillation 07/14/2020 History of CVA (cerebrovascular accident) \R\201 5 07/14/2020 Assessment & Plan (11/28/2024 1:47 PM CDT): Orders: AMB REFERRAL TO NEUROLOGY History of lobectomy of thyr oid (left, [place] by Dr. Chirinos) 07/14/2020 Chronic anticoagulation 07/14/2020 Cervical lymphadenopathy, left 07/13/2020 Mass of left side of neck 07/13/2020 Essential hypertension Assessment & Plan (11/28/2024 1:47 PM CDT): Current Treatment and Therapy Plans No current plan information found. Past Treatment and Therapy Plans ONCOLOGY TREATMENT Plan Name Start Date Discontinue Date Treatment Medications Discontinue Reason Plan Provider Cycles IP ONC NHL_EPOCH + R_EVERY 21 DAYS (NAME BRAND RITUXAN REQUIRED BY INSURANCE) REVIEWED 6.29 1 05/30/2021 cycloPHOSphamide (200 mg/mL) IVPBcycloPHOSphamide (CYTOXAN)cycloPHOSpham pauline (CYTOXAN) IVPBetoposide (VEPESID) vinCRIStine (ONCOVIN) and DOXOrubicin (ADRIAMYCIN)riTUXimab (RITUXAN) in NaCl 0.9% 250 mL IVPBriTUXimab-abbs (TRUXIMA) 1 mg/mL IVPBriTUXimab-abbs (TRUXIMA) in NaCl 0.9% 250 mL IVPB Therapy Complete Sugar Aponte MD 6 of 6 cycles started Lifetime Dose Tracking * Chemical Lifetime Dose Automatic Entry Manual Entr y doxorubicin 300.049 mg/m2 (635 mg) 170.329 mg/m2 (355 mg) 129.72 mg/m2 (280 mg) Effective Dose 29.9 mSv 25.7 mSv 4.2 mSv Total DLP 3,390.28 DLP 2,977.28 DLP 413 DLP CTDIvol Max 168.9 mGy 138.8 mGy 30.1 mGy CTDIvol Min 105.59 mGy 75.49 mGy 30.1 mGy Resolved Problems Problem Noted Date Diagnosed Date Resolved Date Unstable gait 01/19/2022 01/21/2022 Neutropenic fever 12/26/2020 12/31/2020 Severe sepsis without septic shock 11/28/2020 12/31/2020 Pancytopenia due to chemotherapy 11/19/2020 12/31/2020 Chemotherapy induced neutropenia 09/23/2020 12/31/2020 Mediastinal (thymic) large B-cell lymphoma 08/12/2020 09/30/2024 Dysuria 11/19/2020
--- OUTSIDE RECORDS SUMMARY | 2025-01-26 16:39 | XMS_ITS | Encounter Summary ---
Author Organization [facility] Address [address] [place] [address] Care Team Providers Care Brass Roller Name Role Phone Susi Pratt MD Primary Care Provider [phone]- [phone] Reason for Visit * Reason Comments Documentation Only WORKUP FOR CHEMO EDU CATION WITH BEATER BOSS ON R-EPOCH Encounter Details Date Type Department Care Team (Late st Contact Info) Description 08/17/2020 Chart Note [facility] Cancer and Hematology- [facility] [address] [address] Sugar Aponte MD [address] [address] Documentation Only (WORKUP FOR CHEMO EDUCATION WITH BEATER BOSS ON R-EPOCH) Social History Tobacco Use Types Packs/Day Years Used Date Smoking Tobacco: Never Smokeless Tobacco: Never Alcohol Use Standard Drinks/Week Comments No 0 (1 standard drink = 0.6 oz pur e alcohol) Comments No Sex and Gender Information Value Date Recorded Sex Assigned at Not on file Legal Sex Female 5:36 AM CIRCUIT DESIGNER Gender Identity Not on file Sexual Orientation Not on file COVID-19 Exposure Response Date Recorded In the last month, have you been in contact with someone who was confirmed or suspected to have Coronavirus / COVID-19? No / Unsure 08/20/2020 10:40 AM CDT documented as of this encounter Plan of Treatment Not on file documented as of this encounter Visit Diagnoses Not on filedocumented in this encounter Care Teams Brass Roller Relationship Specialty Start Date End Date Susi Pratt MD [address] [place] [address] PCP - General Internal Medicine 01/24/15 documented as of this encounter
--- OUTSIDE RECORDS SUMMARY | 2025-01-26 16:39 | XMS_ITS | Encounter Summary ---
Author Organization [facility] Address [address] [place] [address] Care Team Providers Care Drain Cleaner Name Role Phone Artur Chávez MD Primary Care Provider [phone]- [phone] Reason for Visit * Reason Comments Question Encounter Details Date Type Department Care Team (Late st Contact Info) Description 11/25/[address] [facility] Primary Care [place] [address] [place] [address] Artur Chávez MD [address] [place] [address] Question Social History Tobacco Use Types Packs/Day Years Used Date Smoking Tobacco: Never Passive Smoke Exposure: Never Smokeless Tobacco: Never Alcohol Use Standard Drinks/Week Comments No 0 (1 standard drink = 0.6 oz pur e alcohol) Feeling Safe Answer Date Recorded Are you in a relationship wi th someone who hurts you emotionally and/or physically? No 11/07/2024 Food Insecurity Answer Date Recorded Patient needs follow up regardin 11/07/2024 Transportation Needs Answer Date Record ed Patient needs follow up regardin 11/07/2024 Housing Stability Answer Date Recorded Social/Environmental Concerns No concerns Utility Needs Answer Date Recorded Patient needs follow up regardin 11/07/2024 Comments No Sex and Gender Information Value Date Recorded Sex Assigned at Not on file Legal Sex Female 12:24 PM CLERICAL ASSIGNER Gender Identity Not on file Sexual Orientation Not on file documented as of this encounter Miscellaneous Notes * Telephone Encounter - Isamar Gibbs - 11/25/2024 3:35 PM CDT Per Omayra the letter has been removed, it was a mistake * Telephone Encounter - Christina Cedeno - 11/25/2024 12:51 PM CDT Copied from [facility] #[id number]. Topic: CPA Information Request - Appointment/Location Information >> Nov 25, 2024 12:50 PM Christina Sheriff wrote: Caller is requesting the following information: Other Patient received letter about missing appointment 11/19/24. She was not scheduled for and did not miss any appointment that day. She is wanting toclarify what this was about. Caller Notes (Not Required): Ask if caller would like to also receive a link in [employer] to view the details for the upcoming appointments. Would caller like [employer] message with link to appointment details? No Patient Access Instructions 1. Link appointment in attachment section below. 2. Select Resolve Reason and Click Close CRM. documented in this encounter Plan of Treatment Upcoming Encounters Date Type Department Care Team (Late st Contact Info) Description 02/23/2025 7:30 AM CLERICAL ASSIGNER Appointment [facility] [address] [place] [phone] Christel Bernal FNP [address] [place] [address] 04/22/2025 8:40 AM CLERICAL ASSIGNER Office Visit [facility] Family Medicine-[place] [address] [place] [address] Christel Bernal FNP [address] [place] [address] 08/19/2025 10:30 AM CDT Office Visit [facility] Neurology [facility] Get [address] [phone] Gerald Leahy MD [address] [facility] [address] [place] [address] documented as of this encounter Visit Diagnoses Not on filedocumented in this encounter Care Teams Drain Cleaner Relationship Specialty Start Date End Date Artur Chávez MD [address] [place] [address] PCP - General Family Practice 08/19/24 documented as of this encounter
--- OUTSIDE RECORDS SUMMARY | 2025-01-26 16:39 | XMS_ITS ---
Author Organization [facility] Address [address] [place] [address] Care Team Providers Care Banquet Lead Name Role Phone Susi Pratt MD Primary Care Provider [phone]- [phone] Active Problems Problem Noted Date Diagnosed Date Anemia in neoplastic disease 09/29/2020 Anticoagulated for history of atrial fibrillatio n 09/23/2020 Chemotherapy induced neutropenia 09/23/2020 Acquired atrophy of thyroid 09/17/2020 Edentulous 09/17/2020 History of atrial fibrillation 09/17/2020 Hypercholesterolemia 09/17/2020 Hypokalemia 09/17/2020 Injury of low back 09/17/2020 Pure hypertriglyceridemia 09/17/2020 Strain of neck muscle 09/17/2020 DM (diabetes mellitus) 08/24/2020 Admission for chemotherapy 08/23/2020 Depression 08/23/2020 Hypothyroidism 08/23/2020 Headache 08/23/2020 Mediastinal (thymic) large B-cell lymphoma 08/12 Body aches 08/12/2020 Chronic cough 08/12/2020 AF (atrial fibrillation) 07/14/2020 History of TIA (transient ischemic attack) and s troke 07/14/2020 History of CVA (cerebrovascular accident) ~201407/14/2020 Chronic anticoagulation 07/14/2020 History of lobectomy of thyr oid (left, [place] by Dr. 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 regions (CMS/HCC) Treatment Medications Current Day (Days 1 through 5, Cycle 4 - Planned for 10/27/2020) Next Day (Day 6, Cycle 4 - Planned for 11/01/2020) cycloPHOSphamide (200 mg/mL) IVPBcycloPHOSphamide (CYTOXAN) IVPBetoposide (VEPESID) vinCRIStine (ONCOVIN) and DOXOrubicin (ADRIAMYCIN)riTUXimab (RITUXAN) 1 mg/mL IVPBriTUXimab (RITUXAN) in NaCl 0.9% 250 mL IVPB cyclophosphamide (CYTOXAN) 1,636 mg in sodium chloride 0.9% 250 mL IVPBetoposide 110 mg, vinCRIStine 0.9 mg, DOXOrubicin 22 mg in sodium chloride 0.9% (PVC free) 500 mL IVPBriTUXimab (RITUXAN) 800 mg in sodium chloride 0.9% 250 mL IVPB No medications scheduled. Past Treatment and Therapy Plans ONCOLOGY TREATMENT Plan Name Start Date Discontinue Date Treatment Medications Discontinue Reason Plan Provider Cycles OP ONC NHL EPOCH + R_EVERY 21 DAYS 08/23/2020 08/18/2020 cycloPHOSphamide (CYTOXAN)riTUXimab- abbs (TRUXIMA) 1 mg/mL IVPBriTUXimab-abbs (TRUXIMA) in NaCl 0.9% 250 mL IVPB Other Sugar Aponte MD Treatment not started Lifetime Dose Tracking * Chemical Lifetime Dose Automatic Entry Manual Entr y doxorubicin 129.719 mg/m2 (280 mg) 129.719 mg/m2 (280 mg) 0 mg/m2 (0 mg) Effective Dose 4.2 mSv 4.2 mSv 0 mSv Total DLP 413 DLP 413 DLP 0 DLP CTDIvol Max 30.1 mGy 30.1 mGy 0 mGy CTDIvol Min 30.1 mGy 30.1 mGy 0 mGy
--- OUTSIDE RECORDS SUMMARY | 2025-01-26 16:39 | XMS_ITS | Encounter Summary ---
Author Organization [facility] Address [address] [place] [address] Care Team Providers Care Trench Trimmer Fine Name Role Phone Artur Chávez MD Primary Care Provider Encounter Details Date Type Department Care Team (Late Contact Info) Description 12/22/2020 Lab Requisition [facility] [address] [place] [address] Araceli, External Provider [address] [place] [address] Social History Tobacco Use Types Packs/Day Years Used Date Smoking Tobacco: Never Smokeless Tobacco: Never Alcohol Use Standard Drinks/Week Comments No 0 (1 standard drink = 0.6 oz pur e alcohol) Comments No Sex and Gender Information Value Date Recorded Sex Assigned at Not on file Legal Sex Female 12:24 PM GROUND INSTRUCTOR ADVANCED Gender Identity Not on file Sexual Orientation Not on file COVID-19 Exposure Response Date Recorded In the last month, have you been in contact with someone who was confirmed or suspected to have Coronavirus / COVID-19? No / Unsure 12/23/2020 9:45 AM CDT documented as of this encounter Plan of Treatment Upcoming Encounters Date Type Department Care Team (Late Contact Info) Description 02/23/2025 7:30 AM GROUND INSTRUCTOR ADVANCED Appointment [facility] [address] [place] [address] Christel Bernal FNP [address] [place] [address] 04/22/2025 8:40 AM GROUND INSTRUCTOR ADVANCED Office Visit [facility] Family Medicine-[place] [address] [place] [address] Christel Bernal FNP [address] [place] [address] 08/19/2025 10:30 AM CDT Office Visit [facility] Neurology - [place] [address] [place] [address] Gerald Leahy MD [address] [place] [address] documented as of this encounter Procedures Procedure Name Priority Date/Time Associated Diagnosis Comments REFERENCE LAB PROCESSING FEE Routine 12/22/2020 2:40 PM CDT documented in this encounter Results * REFERENCE LAB PROCESSING FEE (12/22/2020 2:40 PM CDT) REFERENCE LAB SENDOUT Sent to Ref Lab 12/22/2020 4:01 PM CDT [facility] Other, specify URINE SPECIMEN / Unknown 12/22/2020 2:40 PM CDT 12/22/2020 2:40 PM CDT us External Provider Aura CHEMISTRY ORDERABLES Crystal l Result [facility] CLIA # [id number] [address] [place] [address] documented in this encounter Visit Diagnoses Not on filedocumented in this encounter Additional Health Concerns Infection Onset Date Last Indicated Resolved Time R/O COVID-19 12/26/2020 12/26/2020 12/26/2020 7:52 PM CDT R/O GI Pathogen 12/26/2020 12/27/2020 12/27/2020 7 :33 PM CDT R/O GI Pathogen 05/30/2022 05/30/2022 05/30/2022 1 1:25 AM GROUND INSTRUCTOR ADVANCED documented as of this encounter Care Teams Trench Trimmer Fine Relationship Specialty Start Date End Date Artur Chávez MD [address] [place] [address] PCP - General Family Practice 08/19/24 documented as of this encounter
--- OUTSIDE RECORDS SUMMARY | 2025-01-26 16:39 | XMS_ITS | Clinical Summary ---
Author Organization [facility] Address [address] [place] [address] Care Team Providers Care Client Director Name Role Phone Susi Pratt MD Primary Care Provider +1- [phone] Allergies Active Allergy Reactions Criticality Noted Date Comments Diphenhydramine Hcl Other (See Comments) 01/24/2015 makes me angry Pseudoephedrine Hcl Other (See Comments) 01/24/2015 Makes me angry Sulfa (Sulfonamide Antibiotics) Rash Low 01/24/2015 Medications levothyroxine 25 mcg tablet Take 25 mcg by mouth daily lead installer. Active rosuvastatin (CRESTOR) 40 mg tablet Take 40 mg by mouth daily at bedtime. Active topiramate (TOPAMAX) 100 mg tablet Take 100 mg by mouth 2 times daily. Active traZODone (DESYREL) 150 mg tablet Take 300 mg by mouth daily at bedtime. Active vit-iron fumarate-FA ( S) 27-0.8 mg Tablet Take 1 Tablet by mouth daily. Active cholecalcifero l, Vitamin D3, (VITAMIN D3) 1,000 unit Capsule Take by mouth daily. Active fluticasone propionate (FLONASE) 50 mcg/spray [place], Suspension nasal inhaler Administer 2 Sprays in each nostril daily. Active SUMAtriptan (IMITREX) 100 mg tablet Take 100 mg by mouth see administration instructions may repeat in 2 hours; max dose 200mg in 24 hours . Active apixaban (ELIQUIS) 5 mg tablet Take 5 mg by mouth 2 times daily. For A. Fib with a stroke and TIAs Active empagliflozin (Jardiance) 10 mg tablet Take by mouth daily in the morning. Active potassium chloride (K-TAB) 20 mEq Extended Release tablet Take 20 mEq by mouth daily. 0 Active pantoprazole (PROTONIX) 40 mg Tablet, Delayed Release (E.C.) Take 40 mg by mouth daily. 0 Active docusate sodium (Colace) 100 mg capsule Take 2 Capsules (200 mg) by mouth 2 times daily as needed for Constipation. 1 Active aspirin (MARIA ANTONIA CHEWABLE) 81 mg Tablet, Chewable Take 1 Tablet (81 mg) by mouth daily. 1 Active LORazepam (ATIVAN) 0.5 mg tabletIndicati ons:Anxiety Take 1 Tablet (0.5 mg) by mouth 2 times daily. HISTORICAL MED- PER PATIENT, THROUGH [facility] 1 Active allopurinoL (ZYLOPRIM) 100 mg tablet Take 1 Tablet (100 mg) by mouth 2 times daily. Can start now. To protect kidneys during 1st month of chemo. 60 Tablet 1 Active metoprolol tartrate (LOPRESSOR) 50 mg tablet Take 50 mg by mouth 2 times daily. Active ARIPiprazole (ABILIFY) 5 mg tablet Take 5 mg by mouth daily. Active DULoxetine (CYMBALTA) 60 mg Capsule, Delayed Release(E.C.) Take 120 mg by mouth daily. Active tiZANidine (ZANAFLEX) 2 mg Tablet Take 2 mg by mouth every 8 hours as needed for Spasm. Active amLODIPine (NORVASC) 10 mg tablet Take 10 mg by mouth daily. Active melatonin 3 mg Tablet Take 3 mg by mouth nightly as needed for Insomnia. Active lisinopriL (PRINIVIL) 20 mg tablet Take 20 mg by mouth daily. Active QUEtiapine (SEROquel) 50 mg tablet Take 150 mg by mouth daily at bedtime. Active loperamide (IMODIUM) 2 mg Tablet Take 2 mg by mouth 4 times daily as needed for Diarrhea/Loose Stools. Active ondansetron (ZOFRAN ODT) 4 mg Tablet, Rapid Dissolve Take 1 Tablet (4 mg) by mouth every 6 hours as needed for Nausea/Emesis. Dissolve tablet on top of tongue, then swallow with saliva. 20 Tablet 2 1 Active prochlorperazi ne maleate (COMPAZINE) 10 mg tablet Take 1 Tablet (10 mg) by mouth every 6 hours as needed for Nausea/Emesis. 40 Tablet 2 1 Active traMADoL (ULTRAM) 50 mg tabletIndicati ons:Large B-cell lymphoma (CMS/HCC),Medi astinal large B-cell lymphoma of lymph nodes of multiple regions (CMS/HCC) Take 1-2 Tablets (50-100 mg) by mouth every 8 hours as needed for Pain. 60 Tablet 1 Active diphenoxylate- atropine 2.5-0.025 mg tablet Take 1 Tablet by mouth 4 times daily as needed for Diarrhea/Loose Stools. 60 Tablet 1 Active valACYclovir (VALTREX) 500 mg tablet Take 1 Tablet (500 mg) by mouth 2 times daily. 60 Tablet 1 1 Active Active Problems Problem Noted Date Diagnosed Date [...] History of lobectomy of thyr oid (left, [place] by Dr. Chirinos) 07/14/2020 Cervical lymphadenopathy, left 07/13/2020 Mass of left side of neck 07/13/2020 Immunizations Immunization Administration Dates Next Due (TDVAX)(7 YRS UP) TETANUS AN D DIPHTHERIA TOXOIDS, ADSORBED (2 LF OF TETANUS TOXOID AND 2 LF OF DIPHTHERIA TOXOID), 0.5ML (PF), IM 06/22/2005 Influenza Seasonal Unspecified Formulation IM Family History Medical History Relation Name Comments Diabetes Brother Heart Disease Father Hypertension Father Diabetes Mother Heart Disease Mother Hypertension Mother Diabetes Sister Heart Disease Sister Relation Name Status Comments Brother Alive Father Alive Mother Alive Sister Alive Social History Tobacco Use Types Packs/Day Years Used Date Smoking Tobacco: Never Smokeless Tobacco: Never Tobacco Cessation:Counseling Given: Yes Alcohol Use Standard Drinks/Week Comments No 0 (1 standard drink = 0.6 oz pur e alcohol) Comments No Sex and Gender Information Value Date Recorded Sex Assigned at Not on file Legal Sex Female 5:36 AM CREWMAN 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 M113 Gender Identity Not on file Sexual Orientation Not on file Last Filed Vital Signs Vital Sign Reading Time Taken Comments Blood Pressure 132/73 10/19/2020 2:23 PM CDT Pulse 105 10/19/2020 2:23 PM CDT Temperature 36.5 C (97.7 F) 10/19/2020 1:13 PM CDT Respiratory Rate 20 10/19/2020 1:13 PM CDT Oxygen Saturation 97% 10/19/2020 1:13 PM CDT Inhaled Oxygen Concentration - - Weight 87.9 kg (193 lb 12.8 oz) 10/15/2020 1:08 PM CDT Height 172.7 cm (5' 8 ) 10/15/2020 1:08 PM CDT Body Mass Index 29.47 10/15/2020 1:08 PM CDT Plan of Treatment Health Maintenance Due Date Last Done Comments DIABETES ANNUAL FOOT EXAM 1978 DIABETES ANNUAL RETINAL EXAM 1978 DIABETES MICROALBUMIN ANNUAL SCREEN 1978 LDL CHOLESTEROL ANNUAL 1978 ZOSTER VACCINE (1 of 2) 06/24/1979 HPV/Cotest (21-29) 1981 CERVICAL CANCER SCREENING 1990 HPV/Cotest (30-65) 1990 PAP SMEAR 1990 BREAST CANCER SCREENING 2000 COLORECTAL SCREENING 2005 Colorectal Cancer Screening 2005 DTAP/TDAP/TD VACCINES (1 - Tdap) 2005 06/23/19 06 FIT-DNA Q 3 years 2005 FIT/FOBT Q 1 year 2005 Flex Sig/CT Colonography Q 5 years 2005 RSV VACCINE (60+ or ) (1 - Risk 60-74 years 1-dose series) 2020 DIABETES HBA1C Q 6 MONTHS 03/26/2021 09/24/2020 INFLUENZA VACCINE (#1) 2024 02/06/2020 Medical Devices Implanted Type Area Bridges And Buildings Supervisor Device Identifier Shelf Expiration Date Model / Serial / Lot Clip Ligating Horizon Med Ti [id number] - Csc - Sn/A Implanted:Qty : 3 on 08/04/2020 by Johnathan Campos MD at [facility] Clip Left: Neck TELEFLEX- WECK CLOSURE SYS 11/16/2024 [id number] / N/A / [id number] Clip Ligating Horizon Sm - Sn/A Implanted:Qty : 1 on 08/04/2020 by Johnathan Campos MD at [facility] Clip Left: Neck TELEFLEX INC 12/03/2024 [id number] / N/A / [id number] Clip Ligating Horizon Med Ti [id number] - Csc - Sn/A Implanted:Qty : 2 on 08/04/2020 by Johnathan Campos MD at [facility] Clip Left: Neck TELEFLEX- WECK CLOSURE SYS 02/07/2025 [id number] / N/A / [id number] Hemostatic Surgifoam Sz12-7 1971/ Implanted:Qty : 1 on 08/04/2020 by Johnathan Campos MD at [facility] Hemostatic Left: Neck [employer]- [employer] 01/08/20241971 / N/A / [id number] Port Pwrprt Clearvue Slim 8fr [id number] Implanted:Qty : 1 on 08/20/2020 by Umer Weller MD Port Right: Chest CR BARD- [employer] [id number] 07/21/2021 [id number] / / [id number] Insurance MEDICAID [place] Directives For more information, please contact: [phone] * Full Code (Latest Code Status on File) Date Activated Date Inactivated Comments 10/04/2020 9:53 AM 10/09/2020 1:31 AM * Full Code Date Activated Date Inactivated Comments 09/13/2020 6:46 AM 09/17/2020 9:14 PM * Full Code Date Activated Date Inactivated Comments 08/23/2020 10:29 AM 08/27/2020 9:16 PM * Full Code Date Activated Date Inactivated Comments 08/04/2020 9:22 AM 08/04/2020 3:39 PM Care Teams Client Director Relationship Specialty Start Date End Date Susi Pratt MD [address] [place] [address] PCP - General Internal Medicine 01/24/15
--- OUTSIDE RECORDS SUMMARY | 2025-01-26 16:39 | XMS_ITS | Encounter Summary ---
Author Organization [facility] Address [address] [place] [address] Care Team Providers Care Sports Coordinator Name Role Phone Susi Pratt MD Primary Care Provider +1- [phone] Reason for Visit * Reason Onset Date Comments Results 10/20/202010/19 hgb 9.4, pl atelets 256, WBC 36.2. Spoke with patient and told her that she did not need transfusion per order with these results. Also alerted her to elevated WBC, she reported that she had an infection in her mouth which she was taking antibiotics for. Notified her that I would alert Dr. Aponte for any further things on that. Pt reports she's getting her blood done on Sunday again. Encounter Details Date Type Department Care Team (Late st Contact Info) Description 10/20/2020 Telephone [facility] Outpatient Services [address] [address] Joyce Mesa, RN Results (10/19 hgb 9.4, platelets 256, WBC 36.2. Spoke with patient and told her that she did not need transfusion per order with these results. Also alerted her to elevated WBC, she reported that she had an infection in her mouth which she was taking antibiotics for. Notified her that I would alert Dr. Aponte for any further things on that. Pt reports she's getting her blood done on Sunday again.) Social History Tobacco Use Types Packs/Day Years Used Date Smoking Tobacco: Never Smokeless Tobacco: Never Alcohol Use Standard Drinks/Week Comments No 0 (1 standard drink = 0.6 oz pur e alcohol) Comments No Sex and Gender Information Value Date Recorded Sex Assigned at Not on file Legal Sex Female 5:[address] Gender Identity Not on file Sexual Orientation Not on file COVID-19 Exposure Response Date Recorded In the last month, have you been in contact with someone who was confirmed or suspected to have Coronavirus / COVID-19? No / Unsure 10/19/2020 11:56 AM CDT documented as of this encounter Plan of Treatment Not on file documented as of this encounter Visit Diagnoses Not on filedocumented in this encounter Care Teams Sports Coordinator Relationship Specialty Start Date End Date Susi Pratt MD [address] [place] [address] PCP - General Internal Medicine 01/24/15 documented as of this encounter
--- OUTSIDE RECORDS SUMMARY | 2025-01-26 16:39 | XMS_ITS | Encounter Summary ---
Author Organization [facility] Address [address] [place] [address] Care Team Providers Care Billing Manager Name Role Phone Artur Chávez MD Primary Care Provider +1- [phone] Reason for Visit * Reason Comments Information Encounter Details Date Type Department Care Team (Late st Contact Info) Description 11/27/2024 [facility]phone [facility] [address] [place] [address] Christel Bernal FNP [address] [place] [address] Information Social History Tobacco Use Types Packs/Day Years [...] on file Legal Sex Female 12:24 PM CONCRETE MIXER OPERATOR HELPER Gender Identity Not on file Sexual Orientation Not on file documented as of this encounter Miscellaneous Notes * Telephone Encounter - Re Chowdhury - 11/27/2024 12:39 PM CDT Patient has appt with us tomorrow * Telephone Encounter - Jackeline Harrell - 11/27/2024 11:04 AM CDT Copied from [facility] #[id number]. Topic: Established Patient Care >> Nov 27, 2024 11:02 AM Jackeline Wooten wrote: Is the patient established with a [facility] provider? Yes, select appropriate option in Discharge Facility SmartList Caller Name: Maris Mcdermott Callback Number: [phone] Call Notes: Tisha D/C 11/16/24 Patient is Rising Risk Where was the patient discharged from? Hospital Is there availability to schedule the patient within 5 calendar days of discharge? No, in person appointment not available or call came after 5 days of discharge documented in this encounter Plan of Treatment Upcoming Encounters Date Type Department Care Team (Late st Contact Info) Description 02/23/2025 7:30 AM CONCRETE MIXER OPERATOR HELPER Appointment [facility] [address] [place] [address] Christel Bernal FNP [address] [place] [address] 04/22/2025 8:40 AM CONCRETE MIXER OPERATOR HELPER Office Visit [facility] Family Medicine[address] [address] Christel Bernal FNP [address] [place] [address] 08/19/2025 10:30 AM CDT Office Visit [facility] Neurology [place] [address] [place] [address] Gerald Leahy MD [address] [facility] [address] [place] [address] documented as of this encounter Visit Diagnoses Not on filedocumented in this encounter Care Teams Billing Manager Relationship Specialty Start Date End Date Artur Chávez MD [address] [place] [address] PCP - General Family Practice 08/19/24 documented as of this encounter
--- OUTSIDE RECORDS SUMMARY | 2025-01-26 16:40 | XMS_ITS | Encounter Summary ---
Author Organization [facility] Address [address] [place] [address] Care Team Providers Care Assistant Casino Shift Manager Name Role Phone Susi Pratt MD Primary Care Provider +1- [phone] Encounter Details Date Type Department Care Team (Late st Contact Info) Description 10/30/2001 Outpatient Historical [facility] Medicine[address] [phone] Social History Tobacco Use Types Packs/Day Years Used Date Smoking Tobacco: Never Assessed Comments Unknown Sex and Gender Information Value Date Recorded Sex Assigned at Not on file Legal Sex Female 5:36 AM BATTERY REPAIRER Gender Identity Not on file Sexual Orientation Not on file documented as of this encounter Plan of Treatment Not on file documented as of this encounter Visit Diagnoses Not on filedocumented in this encounter Care Teams Assistant Casino Shift Manager Relationship Specialty Start Date End Date Susi Pratt MD [address] [place] [address] PCP - General Internal Medicine 01/24/15 documented as of this encounter
--- OUTSIDE RECORDS SUMMARY | 2025-01-26 16:40 | XMS_ITS | Encounter Summary ---
Author Organization [facility] Address [address] [place] [address] Care Team Providers Care Nuclear Station Operator Name Role Phone Artur Chávez MD Primary Care Provider Encounter Details Date Type Department Care Team (Late Contact Info) Description 12/28/2021 Lab Requisition [facility] Laboratory Services [place] [address] [place] [address] Araceli, External Provider [address] [place] [address] Social History Tobacco Use Types Packs/Day Years Used Date Smoking Tobacco: Never Smokeless Tobacco: Never Alcohol Use Standard Drinks/Week Comments No 0 (1 standard drink = 0.6 oz pur e alcohol) Comments No Sex and Gender Information Value Date Recorded Sex Assigned at Not on file Legal Sex Female 12:24 PM FINISHER MAP AND CHART Gender Identity Not on file Sexual Orientation Not on file COVID-19 Exposure Response Date Recorded In the last 10 days, have yo u been in contact with someone who was confirmed or suspected to have Coronavirus/COVID-19? No / Unsure 12/28/2021 8:48 AM CDT documented as of this encounter Plan of Treatment Upcoming Encounters Date Type Department Care Team (Late Contact Info) Description 02/23/2025 7:30 AM FINISHER MAP AND CHART Appointment [facility] [address] [place] [address] Christel Bernal FNP [address] [place] [address] 04/22/2025 8:40 AM FINISHER MAP AND CHART Office Visit [facility] Family Medicine-[place] [address] [place] [address] Christel Bernal FNP [address] [place] [address] 08/19/2025 10:30 AM CDT Office Visit [facility] Neurology - [place] [address] [place] [address] Gerald Leahy MD [address] [place] [address] documented as of this encounter Procedures Procedure Name Priority Date/Time Associated Diagnosis Comments REFERENCE LAB PROCESSING FEE Routine 12/28/2021 9:06 AM CDT documented in this encounter Results * REFERENCE LAB PROCESSING FEE (12/28/2021 9:06 AM CDT) REFERENCE LAB SENDOUT Sent to Ref Lab 12/28/2021 11:00 AM CDT [facility] Other, specify BLOOD SPECIMEN / Unknown 12/28/2021 9:06 AM CDT 12/28/2021 9:34 AM CDT us External Provider Aura CHEMISTRY ORDERABLES Crystal l Result [facility] CLIA # [id number] [address] [place] [address] documented in this encounter Visit Diagnoses Not on filedocumented in this encounter Additional Health Concerns Infection Onset Date Last Indicated Resolved Time R/O GI Pathogen 05/30/2022 05/30/2022 05/30/2022 1 1:25 AM FINISHER MAP AND CHART documented as of this encounter Care Teams Nuclear Station Operator Relationship Specialty Start Date End Date Artur Chávez MD [address] [place] [id number] PCP - General Family Practice 08/19/24 documented as of this encounter
--- OUTSIDE RECORDS SUMMARY | 2025-01-26 16:40 | XMS_ITS | Encounter Summary ---
Author Organization [facility] Address [address] [place] [address] Care Team Providers Care Sr Risk Management Consultant Name Role Phone Artur Chávez MD Primary Care Provider Encounter Details Date Type Department Care Team (Late Contact Info) Description 03/26/2021 Lab Requisition [facility] Laboratory Services [id number] [place] [address] Natasha Branham, ASSEMBLY LEADER NO ADDRESS ON FILE Social History Tobacco Use Types Packs/Day Years Used Date Smoking Tobacco: Never Smokeless Tobacco: Never Alcohol Use Standard Drinks/Week Comments No 0 (1 standard drink = 0.6 oz pur e alcohol) Comments No Sex and Gender Information Value Date Recorded Sex Assigned at Not on file Legal Sex Female 12:24 PM MEASUREMENT SUPERVISOR Gender Identity Not on file Sexual Orientation Not on file COVID-19 Exposure Response Date Recorded In the last month, have you been in contact with someone who was confirmed or suspected to have Coronavirus / COVID-19? Yes 03/29/2021 11:51 AM MEASUREMENT SUPERVISOR documented as of this encounter Plan of Treatment Upcoming Encounters Date Type Department Care Team (Late Contact Info) Description 02/23/2025 7:30 AM MEASUREMENT SUPERVISOR Appointment [address] [phone] Christel Bernal FNP [address] [place] [address] 04/22/2025 8:40 AM MEASUREMENT SUPERVISOR Office Visit [facility] [address] [place] [address] Christel Bernal FNP [address] [place] [address] 08/19/2025 10:30 AM CDT Office Visit [facility] [place] [address] [place] [address] Gerald Leahy MD [address] [place] [address] documented as of this encounter Procedures Procedure Name Priority Date/Time Associated Diagnosis Comments EXTRA TUBE (SST/GOLD) Routine 03/26/2021 2:26 PM MEASUREMENT SUPERVISOR LACTIC ACID Stat 03/26/2021 2:26 PM MEASUREMENT SUPERVISOR CBC WITH DIFFERENTIAL Stat 03/26/2021 2:26 PM MEASUREMENT SUPERVISOR COMPREHENSIVE METABOLIC PANEL Stat 03/26/2021 2:26 PM MEASUREMENT SUPERVISOR documented in this encounter Results * EXTRA TUBE (SST/GOLD) (03/26/2021 2:26 PM MEASUREMENT SUPERVISOR) Blood Collection / Unknown 03/26/2021 2:26 PM MEASUREMENT SUPERVISOR 03/26/2021 3:02 PM MEASUREMENT SUPERVISOR Natasha Branham NP CHEMISTRY ORDERABLES Final R esult [facility] CLIA # [id number] [address] [place] [address] [place], [place] [id number] * LACTIC ACID (03/26/2021 2:26 PM MEASUREMENT SUPERVISOR) LACTIC ACID 1.7 <=2.0 mmol/L 03/26/2021 3:18 PM MEASUREMENT SUPERVISOR [facility] Blood Collection / Unknown 03/26/2021 2:26 PM MEASUREMENT SUPERVISOR 03/26/2021 2:57 PM MEASUREMENT SUPERVISOR us Natasha Branham NP CHEMISTRY ORDERABLES Final R esult [facility] CLIA # [id number] [address] [address] [place] [address] * (ABNORMAL) CBC WITH DIFFERENTIAL (03/26/2021 2:26 PM MEASUREMENT SUPERVISOR) [facility] WBC 2.1(L) 4.8 - 10.8 K/uL 03/26/2021 3:23 PM [facility] RBC 3.56(L) 4.20 - 5.40 M/uL 03/26/2021 3:23 PM [facility] HEMOGLOBIN 11.3(L) 12.0 - 16.0 g/dL 03/26/2021 3:23 PM [facility] HEMATOCRIT 34.4(L) 36.0 - 46.0 % 03/26/2021 3:23 PM [facility] MCV 96.6 84.0 - 103.0 fL 03/26/2021 3:23 PM [facility] MCH 31.7 27.0 - 34.0 pg 03/26/2021 3:23 PM [facility] MCHC 32.8 30.0 - 35.0 g/dL 03/26/2021 3:23 PM [facility] RDW 11.3 11.0 - 14.5 % 03/26/2021 3:23 PM [facility] RDW-STDEV 40.3 37.0 - 54.0 fL 03/26/2021 3:23 PM [facility] PLATELETS 164 140 - 440 K/uL 03/26/2021 3:23 PM [facility] MPV 10.0 8.9 - 12.8 fL 03/26/2021 3:23 PM [facility] NEUTROPHILS 34(L) 42 - 75 % 03/26/2021 3:23 PM [facility] LYMPHOCYTES 43 24 - 44 % 03/26/2021 3:23 PM [facility] MONOCYTES 22(H) 2 - 10 % 03/26/2021 3:23 PM [facility] EOSINOPHILS 0 0 - 7 % 03/26/2021 3:23 PM [facility] BASOPHILS 1 0 - 1 % 03/26/2021 3:23 PM [facility] IMMATURE GRANULOCYTES 0 0 - 2 % 03/26/2021 3:23 PM [facility] NEUTROPHIL ABSOLUTE 0.71(L) 2.00 - 8.00 K/uL 03/26/2021 3:23 PM [facility] LYMPHOCYTE ABSOLUTE 0.89(L) 1.20 - 4.00 K/uL 03/26/2021 3:23 PM [facility] MONOCYTE ABSOLUTE 0.46 0.10 - 0.60 K/uL 03/26/2021 3:23 PM [facility] EOSINOPHIL ABSOLUTE 0.00 0.00 - 0.70 K/uL 03/26/2021 3:23 PM [facility] BASOPHILS ABSOLUTE 0.01 0.00 - 0.20 K/uL 03/26/2021 3:23 PM [facility] IMMATURE GRANULOCYTES ABSOLUTE 0.00 0.00 - 0.10 K/uL 03/26/2021 3:23 PM [facility] Blood Collection / Unknown 03/26/2021 2:26 PM MEASUREMENT SUPERVISOR 03/26/2021 3:01 PM MEASUREMENT SUPERVISOR us Natasha Branham NP HEMATOLOGY ORDERABLES Final Result [facility] CLIA # [id number] [address] [address] [place] [address] * (ABNORMAL) COMPREHENSIVE METABOLIC PANEL (03/26/2021 2:26 PM MEASUREMENT SUPERVISOR) SODIUM 134(L) 136 - 145 mmol/L 03/26/2021 4:08 PM [facility] POTASSIUM 4.0 3.5 - 5.1 mmol/L 03/26/2021 4:08 PM [facility] CHLORIDE 100 98 - 107 mmol/L 03/26/2021 4:08 PM [facility] CO2 21(L) 22 - 29 mmol/L 03/26/2021 4:08 PM [facility] CALCIUM 9.0 8.8 - 10.2 mg/dL 03/26/2021 4:08 PM [facility] BUN 13 8 - 23 mg/dL 03/26/2021 4:08 PM [facility] CREATININE 0.88 0.51 - 0.95 mg/dL 03/26/2021 4:08 PM [facility] GLUCOSE 132(H) 74 - 99 mg/dL 03/26/2021 4:08 PM [facility] TOTAL PROTEIN 7.1 6.4 - 8.3 g/dL 03/26/2021 4:08 PM [facility] ALBUMIN 4.1 3.5 - 5.2 g/dL 03/26/2021 4:08 PM [facility] BILIRUBIN TOTAL 0.4 0.2 - 1.0 mg/dL 03/26/2021 4:08 PM [facility] ALKALINE PHOSPHATASE 98 35 - 104 U/L 03/26/2021 4:08 PM [facility] AST 27 10 - 35 U/L 03/26/2021 4:08 PM [facility] ALT 22 <=35 U/L 03/26/2021 4:08 PM [facility] GFR >60 mL/min/1.7 3 sq meter 03/26/2021 4:08 PM [facility] Comment: eGFR has not been validated for use in the elderly (> 70 years of age), women, patients with serious co-morbid conditions, or persons with extremes of body size or muscle mass and should also be interpreted with caution in patients with acute kidney failure, dialysis dependent patients, patients reporting exceptional dietary intake (e.g. vegetarian diet, high protein diets, creatine supplementation), and patients with severe liver disease. Based on National Kidney Disease Education Program If patient is , please refer to the GFR result. GFR, >60 mL/min/1.7 3 sq meter 03/26/2021 4:08 PM MEASUREMENT [address]PER[address]OR [facility] ANION GAP 13 9 - 20 mmol/L 03/26/2021 4:[address] [facility] Blood Collection / Unknown 03/26/2021 2:26 PM MEASUREMENT SUPERVISOR 03/26/2021 3:01 PM MEASUREMENT SUPERVISOR us Natasha Branham ASSEMBLY LEADER CHEMISTRY ORDERABLES Final R esult [facility] CLIA # [id number] [facility] [address] [address] documented in this encounter Visit Diagnoses Not on filedocumented in this encounter Additional Health Concerns Infection Onset Date Last Indicated Resolved Time R/O GI Pathogen 05/30/2022 05/30/2022 05/30/2022 1 1:25 AM MEASUREMENT SUPERVISOR documented as of this encounter Care Teams Sr Risk Management Consultant Relationship Specialty Start Date End Date Artur Chávez MD [address] [place] [address] PCP - General Family Practice 08/19/24 documented as of this encounter
--- OUTSIDE RECORDS SUMMARY | 2025-01-26 16:40 | XMS_ITS | Clinical Summary ---
Author Organization [facility] tone Address [address] [place] [address] Care Team Providers Care Loss Claim Clerk Name Role Phone Artur Chávez MD Primary Care Provider Allergies Active Allergy Reactions Criticality Noted Date Comments Diphenhydramine Hcl Other (See Comments) 01/24/2015 makes me angry Pseudoephedrine Hcl Other (See Comments) 01/24/2015 Makes me angry Sulfa (Sulfonamide Antibiotics) Rash Low 01/24/2015 Medications loperamide (IMODIUM) 2 mg Tablet Take 2 mg by mouth 4 times daily as needed for Diarrhea/Loose Stools. 08/24/19 21 Active diphenoxylate -atropine 2.5-0.025 mg tabletIndicat ions:Chronic diarrhea Take 1 Tablet by mouth 4 times daily as needed for Diarrhea/Loose Stools. 60 Tablet 12/15/19 21 Active vitamin-iron fumarate-foli c acid 27 mg-0.8 mg Tablet Take 1 Tablet by mouth daily. 01/25/20 15 Active docusate sodium (COLACE) 100 mg capsule Take 2 Capsules (200 mg) by mouth 2 times daily as needed for Constipation. 30 Capsule 06/05/19 23 Active Ventolin HFA 90 mcg/actuation inhaler Take 1 Puff by inhalation every 6 hours as needed. 06/26/19 25 Active polyethylene glycol 3350 (MIRALAX) 17 gram/dose Powder Take 1 Scoop (17 Grams) by mouth daily. Dissolve in 8 ounces of fluid and drink entire liquid 527 Gram 10/14/19 25 Active fluticasone propionate (FLONASE) 50 mcg/spray Braham, Suspension nasal inhaler Administer 2 Sprays in each nostril daily. 16 Gram 6 10/14/19 25 Active metoprolol tartrate (LOPRESSOR) 50 mg tablet TAKE 1 TABLET 2 TIMES DAILY. 90 Tablet 11/20/19 25 Active pantoprazole (PROTONIX) 40 mg Tablet, Delayed Release (E.C.) Take 1 Tablet (40 mg) by mouth daily. 30 Tablet 2 11/20/19 25 Active apixaban (Eliquis) 5 mg tablet Take 1 Tablet (5 mg) by mouth 2 times daily. 60 Tablet 6 11/20/19 25 Active rosuvastatin (CRESTOR) 40 mg tablet Take 1 Tablet (40 mg) by mouth daily at bedtime. 90 Tablet 2 11/20/19 25 Active metFORMIN (GLUCOPHAGE XR) 750 mg Extended Release 24 hour tablet Take 1 Tablet (750 mg) by mouth daily at bedtime. 90 Tablet 11/20/19 25 Active aspirin (MARIA ANTONIA CHEWABLE) 81 mg Tablet, Chewable Take 1 Tablet (81 mg) by mouth daily. 30 Tablet 11/20/19 25 Active blood sugar diagnostic (True Metrix Glucose Test Strip) StripIndicati ons:Type 2 diabetes mellitus without complication, without long-term current use of insulin USE TO CHECK BLOOD SUGAR THREE TIMES DAILY 100 Each 11/22/19 25 Active Blood-Glucose Meter (True Metrix Glucose Meter)Indicat ions:Type 2 diabetes mellitus without complication, without long-term current use of insulin USE TO CHECK BLOOD SUGAR THREE TIMES DAILY 1 Each 11/22/19 25 Active lancetsIndica tions:Type 2 diabetes mellitus without complication, without long-term current use of insulin USE TO CHECK BLOOD SUGAR THREE TIMES DAILY 100 Each 11/22/19 25 Active gabapentin (NEURONTIN) 300 mg capsuleIndica tions:Neuropa thy Take 1 Capsule (300 mg) by mouth daily at bedtime. 30 Capsule 11/29/19 25 Active insulin glargine (Lantus Solostar U-100 Insulin) 100 unit/mL pen syringe Inject 25 Units by subcutaneous injection daily at bedtime. INJECT 25 UNITS BY SUBCUTANEOUS INJECTION DAILY AT BEDTIME. 60 DAY SUPPLY 30 mL 12/02/19 25 Active lisinopriL (PRINIVIL) 10 mg tablet Take 1 Tablet (10 mg) by mouth daily. 30 Tablet 1 12/02/19 25 Active Symbicort 160-4.5 mcg/actuation HFA Aerosol Inhaler Take 1 Puff by inhalation daily. 1 Gram 12/02/19 25 Active levothyroxine 50 mcg tablet Take 1 Tablet (50 mcg) by mouth daily in the morning. 30 Tablet 3 12/02/19 25 Active loratadine (CLARITIN) 10 mg tablet Take 1 Tablet (10 mg) by mouth daily. 30 Tablet 12/02/19 25 Active cholecalcifer ol, Vitamin D3, (VITAMIN D3) 25 mcg (1,000 unit) Capsule Take 1 Capsule (1,000 Units) by mouth daily. 12/02/19 25 Active QUEtiapine (SEROquel) 100 mg tablet Take 100 mg by mouth daily at bedtime. 11/20/19 25 Active OTHER Omni gtts TID Active traMADol (ULTRAM) 50 mg tabletIndicat ions:Other closed fracture of distal end of right fibula, initial encounter Take 1 Tablet (50 mg) by mouth every 6 hours as needed for Pain. 20 Tablet 12/17/19 25 Active meclizine (ANTIVERT) 25 mg tablet Take 2 Tablets (50 mg) by mouth 2 times daily. 30 Tablet 2 12/30/19 25 Active Insulin Bentley, Disposable, (Pen Needle) 32 gauge x Needle USE TO INJECT INSULIN DIRECTED 100 Each 3 01/10/20 25 Active traZODone (DESYREL) 100 mg tabletIndicat ions:Psychoph ysiological insomnia Take 1 Tablet (100 mg) by mouth daily at bedtime. 30 Tablet 3 01/14/20 25 Active amLODIPine (NORVASC) 5 mg tablet TAKE ONE TABLET BY MOUTH DAILY 100 Tablet 3 01/15/20 25 Active Ozempic 0.25 mg or 0.5 mg (2 mg/3 mL) Pen Injector Inject 0.5 mg by subcutaneous injection every 7 days. 3 mL 1 01/16/20 25 Active Insulin Bentley, Disposable, (TechLITE Pen Needle) 32 gauge x 14 Needle USE TO INJECT INSULIN DIRECTED 100 Each 10/14/19 25 025 Discontinued Ozempic 0.25 mg or 0.5 mg (2 mg/3 mL) Pen Injector Inject 0.25 mg by subcutaneous injection every 7 days. 0.25 mg. 3 mL 1 12/02/19 25 025 Discontinued Ozempic 0.25 mg or 0.5 mg (2 mg/3 mL) Pen Injector INJECT 0.25 MG under the skin EVERY 7 DAYS 3 mL 1 01/06/20 25 025 Discontinued(R eorder) Hospital, Clinic, or Other Facility Administered Medication Ordered Dose Route Frequency Start Date End Date Status povidone-iodine (BETADINE) 5 % ophthalmic solution 1 DropIndications:Comb ined forms of age-related cataract of left eye 1 Drop Left Eye INTRA-PROCEDURE ONCE 12/24/2024 Active vancomycin in NS (PF) 1 mg/0.1 mL ophthalmic solution compound 0.3 mLIndications:Combin ed forms of age-related cataract of left eye 0.3 mL Left Eye INTRA-PROCEDURE ONCE 12/31/2024 Active Active Problems Problem Noted Date Diagnosed [...] neck muscle 09/17/2020 Type 2 diabetes mellitus, wi thout long-term current use of insulin 08/24/2020 Assessment [...] History of lobectomy of thyr oid (left, [place] by Dr. Chirinos) 07/14/2020 Chronic anticoagulation 07/14/2020 Cervical lymphadenopathy, left 07/13/2020 Mass of left side of neck 07/13/2020 Essential hypertension Assessment & Plan (11/28/2024 1:47 PM CDT): Resolved Problems Problem Noted Date Diagnosed Date Resolved Date Unstable gait 01/19/2022 01/21/2022 Neutropenic fever 12/26/2020 12/31/2020 Severe sepsis without septic shock 11/28/2020 12/31/2020 Pancytopenia due to chemotherapy 11/19/2020 12/31/2020 Chemotherapy induced neutropenia 09/23/2020 12/31/2020 Mediastinal (thymic) large B-cell lymphoma 08/12/2020 09/30/2024 Dysuria 11/19/2020 Encounters Date Type Department Care Team Description 01/14/[address] [phone] Christel Bernal FNP 01/13/2025 8:00 AM CDT Office Visit [address] [phone] Meg Terrazas, ELIUD Flu vaccine need (Primary Dx); Psychophysiological insomnia; Anxiety state; Neuropathy 01/13/2025 External Device Data STL ABSTRACTION Provider, Abstract 01/13/[address] [phone] Mge Terrazas, ELIUD Patient Communication 01/13/2025 Abstract [facility] [place] [address] [address] [place] [phone] Ezio Rosenberg DO 01/09/[address] [phone] Christel Bernal FNP 01/04/2025 Refill [facility] Primary Care [address] [phone] Artur Chávez MD 12/31/2024 12:45 PM CDT Office Visit [facility] [place] [address] [place] [address] [place] [phone] Scout Mckay, OD Pseudophakia of left eye (Primary Dx) 12/31/2024 11:46 AM CDT - 12/31/2024 12:30 PM CDT Surgery [facility] [address] [place] [phone] Ezio Rosenberg DO CATARACT EXTRACTION IOL INSERTION FEMTO LASER ASSISTED LEVEL 1 12/31/2024 11:04 AM CDT Anesthesia Event [facility] [address] [place] [phone] Dale Acosta DO Blackshear, Ross McCord, MD 12/31/2024 8:56 AM CDT - 12/31/2024 11:57 AM CDT Hospital Encounter [facility] [address] [place] [address] Ezio Rosenberg, Discharge Disposition: Home or Self Care 12/27/[address] [phone] Christel Bernal FNP 12/24/2024 2:10 PM CDT Office Visit [facility] [place] [address] [place] [phone] Ezio Rosenberg, Combined forms of age-related cataract of left eye (Primary Dx); Pseudophakia of right eye; [id number] corneal dystrophy of both eyes; Type 2 diabetes mellitus without Ophth complication, without long-term current use of insulin ([facility]); Hyperopia of both eyes with astigmatism 12/24/2024 2:00 PM CDT Chart Note [facility] [place] [address] [place] [phone] Ezio Rosenberg DO 12/17/[address] [phone] Christel Bernal FNP 12/16/2024 7:09 AM CDT - 12/16/2024 9:57 AM CDT Emergency [facility] Emergency [facility] [address] [place] [phone] Chicho Navarrete MD Other closed fracture of distal end of right fibula, initial encounter (Primary Dx) Discharge Disposition: Home or Self Care 12/16/[address] [phone] Christel Bernal FNP 12/16/2024 Telephone [facility] Orthopedics - Orthopedic [facility] [address] [place] [phone] Bam Eddy MD General 12/15/2024 12:48 PM CDT Anesthesia Event [facility] [address] [place] [phone] Micha De La Fuente MD Bock, Jordan Edward, MAPPER 12/15/2024 12:12 PM CDT - 12/15/2024 12:56 PM CDT Surgery [facility] [address] [place] [phone] Ezio Rosenberg, CATARACT EXTRACTION IOL INSERTION FEMTO LASER ASSISTED LEVEL 1 12/15/2024 10:45 AM CDT Office Visit [facility] [place] [address] [place] [phone] Scout Mckay, OD Pseudophakia of right eye (Primary Dx) 12/15/2024 8:25 AM CDT - 12/15/2024 1:37 PM CDT Hospital Encounter [facility] [address] [facility] [address] [place] [phone] Ezio Rosenberg DO Discharge Disposition: Home or Self Care 12/09/2024 Travel 11/29/2024 Refill [facility] [place] [address] [place] [phone] Artur Chávez MD 11/29/2024 Refill [facility] and Hematology [place] [address] [place] [phone] Sugar Aponte MD Chronic diarrhea 11/28/2024 10:00 AM CDT Office Visit [address] [phone] Christel Bernal FNP Screening mammogram, encounter for (Primary Dx); Type 2 diabetes mellitus without complication, without long-term current use of insulin (CMS/HCC); Essential hypertension; Hypokalemia; Akathisia; History of TIA (transient ischemic attack) and stroke; History of CVA (cerebrovascular accident) \R\2014; Intractable headache, unspecified chronicity pattern, unspecified headache type; Neuropathy 11/27/[address] [phone] Christel Bernal FNP Information 11/25/[address] [phone] Artur Chávez MD Question 11/20/[address] [phone] Christel Bernal FNP Medication Refill 11/19/[address] [phone] Artur Chávez MD 11/19/[address] [phone] Artur Chávez MD 11/19/[address] [phone] Christel Bernal FNP 11/19/[address] [phone] Artur Chávez MD 11/11/2024 External Device Data STL ABSTRACTION Provider, Abstract 11/07/2024 11:40 AM CDT - 11/09/2024 3:00 PM CDT Hospital Encounter [facility] Surgical [address] [place] [phone] Chacorta Odell MD Syncope Discharge Disposition: Home or Self Care 11/07/2024 Travel 11/07/2024 Medication Prior Auth Encounter [facility] Prescription Management Dept [address] [place] [address] [place] [phone] Diego Diggs, PHARMACIST 11/06/[address] [phone] Artur Chávez MD 11/04/2024 10:40 AM CDT Office Visit [address] [phone] Meg Terrazas, HEARING CARE PROFESSIONAL Anxiety state (Primary Dx); Severe episode of recurrent major depressive disorder, without psychotic features (CMS/HCC); Depression, unspecified depression type from Last 3 Months Immunizations Immunization Administration Dates Next Due (ADACEL/BOOSTRIX)(10 YR UP) TDAP VACCINE, 0.5ML, IM 02/02/2024 (SPIKEVAX) (12 YRS UP PRIMAR Y SERIES) COVID-19 VACCINE - MRNA-1273(PF) 100 MCG/0.5 ML IM SUSP 10/13/2021,01/11/2021,11/12/2020 (TDVAX)(7 YRS UP) TETANUS AN D DIPHTHERIA TOXOIDS, ADSORBED (2 LF OF TETANUS TOXOID AND 2 LF OF DIPHTHERIA TOXOID), 0.5ML (PF), IM 06/22/2005 INFLUENZA VACCINE QUADRIVALE NT 6 MOS UP PF IM 01/26/2022 INFLUENZA VACCINE TRIVALENT SPLIT VIRUS, (6 MOS UP), 0.5ML (PF), IM 01/13/2025 Influenza Seasonal Unspecifi ed Formulation IM 02/06/2020 Family History Medical History Relation Name Comments Diabetes Brother Heart Disease Father Hypertension Father Diabetes Mother Heart Disease Mother Hypertension Mother Diabetes Sister Heart Disease Sister Relation Name Status Comments Brother Alive Father Alive Mother Alive Sister Alive Social History Tobacco Use Types Packs/Day Years Used Date Smoking Tobacco: Never Passive Smoke Exposure: Never Smokeless Tobacco: Never Tobacco Cessation:Counseling Given: Yes Alcohol Use Standard Drinks/Week Comments No 0 (1 standard drink = 0.6 oz pur e alcohol) Feeling Safe Answer Date Recorded Are you in a relationship wi th someone who hurts you emotionally and/or physically? No 12/31/2024 Food Insecurity Answer Date Recorded Patient needs follow up regardin 11/07/2024 Transportation Needs Answer Date Record ed Patient needs follow up regardin 11/07/2024 Housing Stability Answer Date Recorded Social/Environmental Concerns No concerns Utility Needs Answer Date Recorded Patient needs follow up regardin 11/07/2024 Comments No Sex and Gender Information Value Date Recorded Sex Assigned at Not on file Legal Sex Female 12:24 PM REQUIREMENTS MANAGER Gender Identity Not on file Sexual Orientation Not on file Last Filed Vital Signs Vital Sign Reading Time Taken Comments Blood Pressure 120/88 01/13/2025 7:41 AM CDT Pulse 77 01/13/2025 7:41 AM CDT Temperature 36.4 C (97.6 F) 01/13/2025 7:41 AM CDT Respiratory Rate 16 12/31/2024 9:34 AM CDT Oxygen Saturation 97% 01/13/2025 7:41 AM CDT Inhaled Oxygen Concentration - - Weight 101.2 kg (223 lb) 01/13/2025 7:41 AM CDT Height 174 cm (5' 8.5 ) 01/13/2025 7:41 AM CDT Body Mass Index 33.41 01/13/2025 7:41 AM CDT Plan of Treatment Upcoming Encounters Date Type Department Care Team (Late st Contact Info) Description 02/23/2025 7:30 AM REQUIREMENTS MANAGER Appointment [address] [phone] Christel Bernal FNP [address] [place] [address] 04/22/2025 8:40 AM REQUIREMENTS MANAGER [facility] [address] [place] [address] Christel Bernal FNP [address] [place] [address] 08/19/2025 10:30 AM CDT Office Visit [facility] Neurology - [place] [address] [phone] Gerald Leahy MD [address] [facility] [address] [place] [address] Health Maintenance Due Date Last Done Comments HPV/Cotest (21-29) 1981 CERVICAL CANCER SCREENING 1990 HPV/Cotest (30-65) 1990 PAP SMEAR 1990 FIT-DNA Q 3 years 2005 FIT/FOBT Q 1 year 2005 Flex Sig/CT Colonography Q 5 years 2005 ZOSTER VACCINE (1 of 2) 2010 RSV VACCINE (60+ or ) (1 - Risk 60-74 years 1-dose series) 2020 COVID-19 Vaccine ( season) 2024 12/22/2021, 10/13/2021, 01/11/2021, Additional history exists DIABETES HBA1C Q 6 MONTHS 02/27/20252024, 01/19/2022, 07/13/2021 BREAST CANCER SCREENING 04/13/2025 11/09/2021 Post poned from 11/09/2022 (Patient Refused) DIABETES MICROALBUMIN ANNUAL SCREEN 08/27/2025 08/27/2024 LDL CHOLESTEROL ANNUAL 08/27/2025 08/27/2024, 2021 DIABETES ANNUAL RETINAL EXAM 09/16/2025 09/16/2024, 09/16/2024, 09/16/2024, Additional history exists DIABETES ANNUAL FOOT EXAM 09/30/2025 09/30/2024, Preventative Visit-Managed Medicaid 10/01/2025 09/30/2024 COLORECTAL SCREENING 05/31/2032 05/31/2022, 05/31/19 Colorectal Cancer Screening 05/31/2032 DTAP/TDAP/TD VACCINES (2 - Td or Tdap) 02/01/2034 02/02/2024, 06/22/2005 INFLUENZA VACCINE Completed 01/13/2025, , 02/06/2020 Medical Devices Implanted Type Area Multi Spindle Operator Device Identifier Shelf Expiration Date Model / Serial / Lot Clip Ligating Horizon Med Ti [id number] - Csc - Sn/A Implanted:Qty : 3 on 08/04/2020 by Johnathan Campos MD Clip Left: Neck TELEFLEX- WECK CLOSURE SYS 11/16/2024 [id number] / N/A / [id number] Clip Ligating Horizon Med Ti [id number] - Csc - Sn/A Implanted:Qty : 2 on 08/04/2020 by Johnathan Campos MD Clip Left: Neck TELEFLEX- WECK CLOSURE SYS 02/07/2025 [id number] / N/A / [id number] Clip Ligating Horizon Sm Implanted:Qty : 1 on 08/04/2020 by Johnathan Campos MD Clip Left: Neck [employer]LE[employer] INC 12/03/2024 / N/A / [id number] Hemostatic Surgifoam [id number] Implanted:Qty : 1 on 08/04/2020 by Johnathan Campos MD Hemostatic Left: Neck J[employer]- [employer] 01/08/20241971 N/A / [id number] Lens Iol Tecnis Eyhance 22.5 [id number] - [id number] Implanted:Qty : 1 on 12/15/2024 by Ezio Rosenberg DO at [facility] Lens Right: Eye [employer] [id number] 10/13/2027 [id number] / [id number] / N/A Lens Iol Tecnis Eyhance 21.5 [id number] - [id number] Implanted:Qty : 1 on 12/31/2024 by Ezio Rosenberg DO at [facility] Lens Left: Eye [employer] [id number] 11/02/2027 [id number] / [id number] / Port Pwrprt Clearvue Slim 8fr [id number] Implanted:Qty : 1 on 08/20/2020 by Umer Weller MD Port Right: Chest CR [employer] [id number] 07/21/2021 [id number] / / [id number] Procedures Procedure Name Priority Date/Time Associated Diagnosis Comments OH XCAPSL CTRC RMVL INSJ IO LENS PROSTH W/O ECP 12/31/2024 11:46 AM CDT H25.812 POC GLUCOSE Routine 12/31/2024 9:38 AM CDT IOL BIOMETRY - OS - LEFT EYE Routine 12/24/2024 3:57 PM CDT Combined forms of age-related cataract of left eye XR FOOT 3+ VW RIGHT Stat 12/16/2024 8 :25 AM CDT XR KNEE 3 VW LEFT Stat 12/16/2024 8:0 6 AM CDT XR ANKLE 3+ VW RIGHT Stat 12/16/2024 8:06 AM CDT EYE DROPS Routine 12/15/2024 3:29 PM CDT Pseudophakia of right eye OH XCAPSL CTRC RMVL INSJ IO LENS PROSTH W/O ECP 12/15/2024 12:12 PM CDT H25.811 POC GLUCOSE Routine 12/15/2024 9:04 AM CDT COMPREHENSIVE METABOLIC PANEL Routine 11/28/2024 10:45 AM CDT Hypokalemia TELEMETRY REPORT 11/13/2024 11:4 9 AM CDT EKG 12-LEAD Stat 11/10/2024 2:12 PM CDT POC GLUCOSE Routine 11/09/2024 12:12 PM CDT POC GLUCOSE Routine 11/09/2024 7:18 AM CDT BASIC METABOLIC PANEL Routine 11/09/2024 6:39 AM CDT CBC WITH DIFFERENTIAL Routine 11/09/2024 6:39 AM CDT POC GLUCOSE Routine 11/08/2024 8:04 PM CDT POC GLUCOSE Routine 11/08/2024 5:24 PM CDT POC GLUCOSE Routine 11/08/2024 12:09 PM CDT POC GLUCOSE Routine 11/08/2024 7:06 AM CDT BASIC METABOLIC PANEL Routine 11/08/2024 6:11 AM CDT CBC WITH DIFFERENTIAL Routine 11/08/2024 6:11 AM CDT POC GLUCOSE Routine 11/07/2024 8:05 PM CDT POC GLUCOSE Routine 11/07/2024 5:00 PM CDT OSMOLALITY, URINE Stat 11/07/2024 3:3 4 PM CDT ELECTROLYTES, RANDOM URINE Stat 11/07/2024 3:34 PM CDT OSMOLALITY Stat 11/07/2024 2:24 PM CDT URINALYSIS MICROSCOPY ONLY Stat 11/07/2024 1:10 PM CDT URINALYSIS W/REFLEX MICROSCOPIC Stat 11/07/2024 1:10 PM CDT URINE CULTURE Stat 11/07/2024 1:[address] HEAD WO CONTRAST Stat 11/07/2024 1 2:40 PM CDT XR CHEST PA AND LATERAL 2 VW Stat 11/07/2024 12:30 PM CDT XR HIP 2 OR 3 VIEWS RT Stat 12:30 PM CDT XR SACRUM AND COCCYX Stat 11/07/2024 12:30 PM CDT EKG 12-LEAD Routine 11/07/2024 12:08 PM CDT MAGNESIUM LEVEL Stat 11/07/2024 12:00 PM CDT TSH REFLEXIVE Stat 11/07/2024 12:00 PM CDT COMPREHENSIVE METABOLIC PANEL Stat 11/07/2024 12:00 PM CDT CBC WITH DIFFERENTIAL Stat 11/07/2024 12:00 PM CDT MICROALBUMIN/CREATININ E RATIO, RANDOM UR Routine 08/27/2024 7:52 AM CDT Type 2 diabetes mellitus without complication, without long-term current use of insulin (CMS/HCC) LIPID PANEL Routine 08/27/2024 7:52 AM CDT Hypercholesterolem ia HEMOGLOBIN A1C Routine 08/27/2024 7:52 AM CDT Type 2 diabetes mellitus without complication, without long-term current use of insulin (CMS/[facility]) COLONOSCOPY REPORT 05/31/2022 10 :26 AM REQUIREMENTS MANAGER HM DIABETES EYE EXAM Routine 04/10/2022 MAMMO 3D MLYES SCREEN BILAT W OR WO CAD Routine 11/09/2021 9:37 AM CDT Screening mammogram, encounter for from Last 3 Months or Most Recently Relevant to Health Maintenance Results * (ABNORMAL) POC GLUCOSE (12/31/2024 9:38 AM CDT) Only the most recent of10 resultswithin the time period is included. GLUCOSE POC 102(H) 74 - 99 mg/dL 12/31/2024 9:38 AM CDT [facility] SPECIMEN SOURCE, GLUCOSE POC Venous 12/31/2024 9:38 AM CDT [facility] Blood, whole 12/31/2024 9:38 AM CDT 12/31/2024 9:47 AM CDT Ezio Rosenberg DO POINT OF CARE TESTING Final Re sult [facility] CLIA# [id number] [facility] [address] [place] [id number] * IOL BIOMETRY - OS - LEFT EYE (12/24/2024 3:57 PM CDT) Narrative [facility] OPHTHALMOLOGY ORDERS - 12/24/2024 3:57 PM CDT IOL master reviewed and IOL selection made for 2nd eye Ezio Shadi Rosenberg DO OPHTH ULTRASOUND Final Result [facility] OPHTHALMOLOGY ORDERS * XR FOOT 3+ VW RIGHT (12/16/2024 8:25 AM CDT) Anatomical Region Laterality Modality Ankle / Foot Computed Radiogr aphy 12/16/2024 8:25 AM CDT Impressions 12/16/2024 8:53 AM CDT IMPRESSION: Mild degenerative changes scattered throughout the right foot. Remainder of the right foot radiographs is unremarkable. Narrative 12/16/2024 8:53 AM CDT Exam: Radiographs: XR FOOT 3+ VW RIGHT Indication: Pain Comparison: None Procedure Note Scott Aly MD - 12/16/2024 Exam: Radiographs: XR FOOT 3+ VW RIGHT Indication: Pain Comparison: None IMPRESSION: Mild degenerative changes scattered throughout the right foot. Remainder of the right foot radiographs is unremarkable. Chicho Navarrete MD DIAGNOSTIC IMAGING ORDERABLE S Final Result * XR KNEE 3 VW LEFT (12/16/2024 8:06 AM CDT) Anatomical Region Laterality Modality Lower Extremity Computed Radiogr aphy 12/16/2024 8:06 AM CDT Impressions 12/16/2024 8:43 AM CDT IMPRESSION: Please see below. EXAM: XR KNEE 3 VW LEFT DATE/TIME OF EXAM: 12/16/2024 8:06 AM REASON FOR STUDY: Fall DIAGNOSIS: See Reason for Exam COMPARISON: September 27, 2018. FINDINGS: No acute fracture or subluxation detected. Tricompartmental degenerative changes of the knee are similar to the prior examination. There is, however, a moderate joint effusion of uncertain etiology. IMPRESSION: Moderate joint effusion without evidence of acute fracture. This is suspicious for underlying soft tissue injury or, less likely, occult fracture. Narrative 12/16/2024 8:43 AM CDT Procedure Note Dhaval Adkins MD - 12/16/2024 IMPRESSION: Please see below. EXAM: XR KNEE 3 VW LEFT DATE/TIME OF EXAM: 12/16/2024 8:06 AM REASON FOR STUDY: Fall DIAGNOSIS: See Reason for Exam COMPARISON: September 27, 2018. FINDINGS: No acute fracture or subluxation detected. Tricompartmental degenerative changes of the knee are similar to the prior examination. There is, however, a moderate joint effusion of uncertain etiology. IMPRESSION: Moderate joint effusion without evidence of acute fracture. This is suspicious for underlying soft tissue injury or, less likely, occult fracture. us Chicho Navarrete MD DIAGNOSTIC IMAGING ORDERABLE S Final Result * XR ANKLE 3+ VW RIGHT (12/16/2024 8:06 AM CDT) Anatomical Region Laterality Modality Ankle / Foot Computed Radiogr aphy 12/16/2024 8:06 AM CDT Impressions 12/16/2024 8:34 AM CDT IMPRESSION: See below. Exam: XR ANKLE 3+ VW RIGHT Date/Time of Exam: 12/16/2024 8:06 AM Reason For Exam: Fall. Diagnosis: See Reason for Exam. Findings: Comparison: None There is a fracture at the distal aspect of the fibula with severe overlying soft tissue swelling. The tibia appears intact. The ankle mortise is intact. The tarsal bones and joint spaces are well maintained. Visualized soft tissues are unremarkable. IMPRESSION: 1. Fracture distal aspect of the fibula with severe overlying soft tissue swelling. Narrative Procedure Note Madhu Marina MD - 12/16/2024 IMPRESSION: See below. Exam: XR ANKLE 3+ VW RIGHT Date/Time of Exam: 12/16/2024 8:06 AM Reason For Exam: Fall. Diagnosis: See Reason for Exam. Findings: Comparison: None There is a fracture at the distal aspect of the fibula with severe overlying soft tissue swelling. The tibia appears intact. The ankle mortise is intact. The tarsal bones and joint spaces are well maintained. Visualized soft tissues are unremarkable. IMPRESSION: 1. Fracture distal aspect of the fibula with severe overlying soft tissue swelling. Chicho Navarrete MD DIAGNOSTIC IMAGING ORDERABLE S Final Result * EYE DROPS (12/15/2024 3:29 PM CDT) Narrative [facility] - 12/15/2024 3:29 PM CDT Medications Eye Drops: 1 Drop fluorescein-benoxinate 0.3-0.4 % Route: Topical, Site: Eye, Right [facility]: [id number], Lot: [id number], Expiration date: 12/21/2025 Notes Eye drop orders per protocol for Basic Installation & Maintenance Executive Eye Exam (Non-Dilated) Instill proparacaine (OPHTHAINE) 0.5% ophthalmic solution. Amount: 1 drop per eye prior to tonometry If applanation is preferred method of tonometry: Instill fluorescein-benoxinate (FLURATE) 0.3-0.4 % ophthalmic solution 1 drop per eye during applanation Scout Mckay OD OPHTH CLINIC PROCEDURES F inal Result [facility] CLIA# [id number] [address] [place] [address] * (ABNORMAL) COMPREHENSIVE METABOLIC PANEL (11/28/2024 10:45 AM CDT) Only the most recent of2 resultswithin the time period is included. GLUCOSE 102(H) 65 - 99 mg/dL [facility] Comment: Fasting reference interval For someone without known diabetes, a glucose value between 100 and 125 mg/dL is consistent with prediabetes and should be confirmed with a follow-up test. BUN 10 7 - 25 mg/dL [facility] CREATININE 0.89 0.50 - 1.05 mg/dL [facility] GFR 72 > OR = 60 mL/min/1. 73m2 [facility] BUN/CREAT RATIO SEE NOTE: 6 - 22 (calc) [facility] Comment: Not Reported: BUN and Creatinine are within reference range. SODIUM 137 135 - 146 mmol/L [facility] POTASSIUM 4.1 3.5 - 5.3 mmol/L [facility] CHLORIDE 105 98 - 110 mmol/L [facility] CO2 25 20 - 32 mmol/L [facility] CALCIUM 9.2 8.6 - 10.4 mg/dL [facility] TOTAL PROTEIN 6.5 6.1 - 8.1 g/dL [facility] ALBUMIN 4.1 3.6 - 5.1 g/dL [facility] GLOBULIN 2.4 1.9 - 3.7 g/dL (calc) [facility] ALBUMIN/GLOBULIN RATIO 1.7 1.0 - 2.5 (calc) [facility] BILIRUBIN TOTAL 0.4 0.2 - 1.2 mg/dL [facility] ALKALINE PHOSPHATASE 62 37 - 153 U/L [facility] AST 12 10 - 35 U/L [facility] ALT 9 6 - 29 U/L [facility] Comment: Test Performed at: [facility] [address] Mikey Kelley MD Blood 11/28/2024 10:4 5 AM CDT 11/29/2024 2:49 AM CDT us Christel LIZ CHEMISTRY ORDERABLES Final Resul t [facility] [phone] [facility] [id number] [place] [address] * TELEMETRY REPORT (11/13/2024 11:49 AM CDT) us Provider Scanning ECG ORDERABLES Final Result * EKG 12-LEAD (11/10/2024 2:12 PM CDT) Only the most recent of2 resultswithin the time period is included. us Jessi Corley PA-C ECG ORDERABLES F inal Result * CBC WITH DIFFERENTIAL (11/09/2024 6:39 AM T) Only the most recent of3 resultswithin the time period is included. WBC 4.6 4.5 - 10.8 K/uL 11/09/2024 7:10 AM [facility] RBC 4.31 4.20 - 5.40 M/uL 11/09/2024 7:10 AM [facility] HEMOGLOBIN 12.3 12.0 - 16.0 g/dL 11/09/2024 7:10 AM [facility] HEMATOCRIT 37.3 37.0 - 47.0 % 11/09/2024 7:10 AM [facility] MCV 86.5 81.0 - 99.0 fL 11/09/2024 7:10 AM [facility] MCH 28.5 27.0 - 33.0 pg 11/09/2024 7:10 AM [facility] MCHC 33.0 31.0 - 36.0 g/dL 11/09/2024 7:10 AM [facility] RDW 13.4 10.0 - 15.0 % 11/09/2024 7:10 AM [facility] RDW-STDEV 41.4 37.0 - 54.0 fL 11/09/2024 7:10 AM [facility] PLATELETS 244 130 - 440 K/uL 11/09/2024 7:10 AM [facility] MPV 8.7 7.2 - 11.1 fL 11/09/2024 7:10 AM [facility] NEUTROPHILS 58 47 - 76 % 11/09/2024 7:10 AM [facility] LYMPHOCYTES 27 19 - 48 % 11/09/2024 7:10 AM [facility] MONOCYTES 10 2 - 10 % 11/09/2024 7:10 AM [facility] EOSINOPHILS 4 0 - 7 % 11/09/2024 7:10 AM [facility] BASOPHILS 0 0 - 2 % 11/09/2024 7:10 AM [facility] NEUTROPHIL ABSOLUTE 2.67 1.50 - 7.00 K/uL 11/09/2024 7:10 AM T [facility] LYMPHOCYTE ABSOLUTE 1.26 1.00 - 3.70 K/uL 11/09/2024 7:10 AM T [facility] MONOCYTE ABSOLUTE 0.45 0.00 - 0.70 K/uL 11/09/2024 7:10 AM [facility] EOSINOPHIL ABSOLUTE 0.20 0.00 - 0.40 K/uL 11/09/2024 7:10 AM T [facility] BASOPHILS ABSOLUTE 0.02 K/uL 11/09/2024 7:10 AM [facility] Blood Venipuncture / Unknown 11/09/2024 6:39 AM CDT 11/09/2024 6:46 AM CDT Chacorta Odell MD HEMATOLOGY ORDERABLES Final Re sult [facility] CLIA # [id number] [address], [place] [address] * (ABNORMAL) BASIC METABOLIC PANEL (11/09/2024 6:39 AM CDT) Only the most recent of2 resultswithin the time period is included. SODIUM 139 136 - 145 mmol/L 11/09/2024 7:30 AM [facility] POTASSIUM 3.4(L) 3.5 - 5.1 mmol/L 11/09/2024 7:30 AM [facility] CHLORIDE 104 98 - 107 mmol/L 11/09/2024 7:30 AM [facility] CO2 25 22 - 29 mmol/L 11/09/2024 7:30 AM [facility] CALCIUM 9.0 8.8 - 10.2 mg/dL 11/09/2024 7:30 AM [facility] BUN 8 8 - 23 mg/dL 11/09/2024 7:30 AM [facility] CREATININE 0.73 0.51 - 0.95 mg/dL 11/09/2024 7:30 AM [facility] GLUCOSE 113(H) 74 - 99 mg/dL 11/09/2024 7:30 AM [facility] GFR >60 >=60 mL/min/1.7 3 sq meter 11/09/2024 7:30 AM CDT [facility] Comment:eGFR calculated with 2020 CKD-EPI equation. Vegetarian diet, extremely high or low muscle mass, and may affect results. Cystatin C with Glomerular Filtration Rate is a suitable alternative for these patients. ANION GAP 10 5 - 20 mmol/L 11/09/2024 7:30 AM CDT [facility] Blood Venipuncture / Unknown 11/09/2024 6:39 AM CDT 11/09/2024 6:46 AM CDT us Chacorta Odell MD CHEMISTRY ORDERABLES Final Res ult Performing Organization Address [facility] Co de Phone Number [facility] CLIA # [id number] [address] [place] [address] * ELECTROLYTES, RANDOM URINE (11/07/2024 3:34 PM CDT) SODIUM, URINE <20 mmol/L 11/07/2024 3:53 PM CDT [facility] POTASSIUM, URINE 24.4 mmol/L 11/07/2024 3:53 PM CDT [facility] CHLORIDE, URINE 30 mmol/L 3:53 PM CDT [facility] Urine URINE SPECIMEN OBTAINED BY CLEAN CATCH PROCEDURE / Unknown Collection / Unknown 11/07/2024 3:34 PM CDT 11/07/2024 3:34 PM CDT [facility] - 11/07/2024 3:53 PM CDT Reference Range Not Established us Jessi Corley PA-C URINE ORDERABLES Final Result Performing Organization Address [facility]/ZIP Co de Phone Number [facility] CLIA # [id number] [address] [place] [address] * OSMOLALITY, URINE (11/07/2024 3:34 PM CDT) OSMOLALITY, URINE 213 50 - 1,200 mOsm/kg 11/08/2024 4:32 PM CDT [facility] Urine URINE SPECIMEN OBTAINED BY CLEAN CATCH PROCEDURE / Unknown Collection / Unknown 11/07/2024 3:34 PM CDT 11/07/2024 3:34 PM CDT Narrative [facility] - 11/08/2024 4:32 PM CDT Reference range: 50-1200 mOsm/kg H2O, depending on fluid intake. Jessi HERNANDEZ-Jerrod URINE ORDERABLES Final Result Performing Organization Address City/[facility]/ZIP Co de Phone Number [facility] CLIA # [id number] [facility] [id number] * (ABNORMAL) OSMOLALITY (11/07/2024 2:24 PM CDT) Pathologist [facility] OSMOLALITY 266(L) 275 - 295 mOsm/kg 11/08/2024 4:17 PM CDT [facility] Blood Collection / Unknown 11/07/2024 2:24 PM CDT 11/07/2024 2:26 PM CDT Jessi Avinaton MARY-Jerrod CHEMISTRY ORDERAB LES Final Result Performing Organization Address [facility]/ZIP Co de Phone Number [facility] CLIA # [id number] [facility] [address] * (ABNORMAL) URINALYSIS MICROSCOPY ONLY (11/07/2024 1:10 PM CDT) WBC UA 3-5(A) 0 - 2 /hpf 11/07/2024 1:39 PM CDT [facility] RBC UA 0-2 0 - 2 /hpf 11/07/2024 1:39 PM CDT [facility] BACTERIA UA 2+(A) Negative /hpf 11/07/2024 1:39 PM CDT [facility] EPITHELIAL CELLS, URINE 0-5 0 - 5 /hpf 11/07/2024 1:39 PM [facility] TRANSITIONAL EPI 0-2 0 - 2 /hpf 11/08/19 1:39 PM [facility] Urine URINE SPECIMEN OBTAINED BY CLEAN CATCH PROCEDURE / Unknown Collection / Unknown 11/07/2024 1:10 PM CDT 11/07/2024 1:10 PM CDT us Jessi Corley PA-C URINE ORDERABLES Final Result [facility] CLIA # [id number] [address], [place] [address] * (ABNORMAL) URINALYSIS WITH REFLEX MICROSCOPIC (11/07/2024 1:10 PM CDT) COLOR UA Yellow Pale to Dark Yellow 11/07/2024 1:27 PM [facility] CLARITY UA Clear Clear 11/07/2024 1:27 PM [facility] SPECIFIC GRAVITY UA 1.010 1.003 - 1.035 11/07/2024 1:27 PM [facility] PH UA 7.0 5.0 - 8.0 11/07/2024 1:27 PM [facility] LEUKOCYTE ESTERASE UA 1+(A) Negative 11/07/2024 1:27 PM [facility] NITRITE UA Negative Negative 11/07/2024 1:27 PM [facility] PROTEIN UA Negative Negative 11/07/2024 1:27 PM [facility] GLUCOSE UA Negative Negative 11/07/2024 1:27 PM [facility] KETONES UA Negative Negative 11/07/2024 1:27 PM [facility] UROBILINOGEN UA 0.2 <2.0 mg/dL 1:27 PM [facility] BILIRUBIN UA Negative Negative 11/07/2024 1:27 PM [facility] BLOOD UA Negative Negative 11/07/2024 1:27 PM [facility] Urine URINE SPECIMEN OBTAINED BY CLEAN CATCH PROCEDURE / Unknown Collection / Unknown 11/07/2024 1:10 PM CDT 11/07/2024 1:10 PM CDT Jessi Corley PA-C URINE ORDERABLES Final Result Performing Organization Address City/[facility]/ZIP Co de Phone Number [facility] CLIA # [id number] [address] [place] [address] * URINE CULTURE (11/07/2024 1:10 PM CDT) CULTURE Polymicrobial growth consistent with normal urethral refugio and/or colonizing bacteria 11/09/2024 11:25 AM CDT [facility] Urine URINE SPECIMEN OBTAINED BY CLEAN CATCH PROCEDURE / Unknown Collection / Unknown 11/07/2024 1:10 PM CDT 11/07/2024 1:10 PM CDT Jessi Corley PA-C MICROBIOLOGY - GE NERAL ORDERABLES Final Result Performing Organization Address [facility] Co de Phone Number [facility] CLIA # [id number] [facility] [address] * CT HEAD WO CONTRAST (11/07/2024 12:40 PM CDT) Anatomical Region Laterality Modality Head Computed Tomogra phy 11/07/2024 12:3 4 PM CDT Impressions 11/07/2024 12:49 PM CDT IMPRESSION: 1. No acute intracranial abnormality, although assessment is limited by extensive metallic artifact produced by a left-sided implanted device. Narrative 11/07/2024 12:49 PM CDT EXAM: CT HEAD WO CONTRAST DATE/TIME OF EXAM: 11/07/2024 12:40 PM REASON FOR STUDY: Syncope/presyncope, cerebrovascular cause suspected DIAGNOSIS: See Reason for Exam COMPARISON: November 27, 2020. TECHNIQUE: CT head performed without contrast. FINDINGS: Left-sided scalp device is new from the prior examination, presumably bone conduction hearing aid. This produces metallic artifact which significantly obscures the subjacent brain. No evidence of acute infarct or intracranial hemorrhage. Mild microangiopathic changes of the periventricular white matter. Global parenchymal atrophy is mild. There is no hydrocephalus or visible extra-axial collection. Paranasal sinuses are predominantly clear. Calvarium appears intact. Procedure Note Dhaval Adkins MD - 11/07/2024 EXAM: CT HEAD WO CONTRAST DATE/TIME OF EXAM: 11/07/2024 12:40 PM REASON FOR STUDY: Syncope/presyncope, cerebrovascular cause suspected DIAGNOSIS: See Reason for Exam COMPARISON: November 27, 2020. TECHNIQUE: CT head performed without contrast. FINDINGS: Left-sided scalp device is new from the prior examination, presumably bone conduction hearing aid. This produces metallic artifact which significantly obscures the subjacent brain. No evidence of acute infarct or intracranial hemorrhage. Mild microangiopathic changes of the periventricular white matter. Global parenchymal atrophy is mild. There is no hydrocephalus or visible extra-axial collection. Paranasal sinuses are predominantly clear. Calvarium appears intact. IMPRESSION: 1. No acute intracranial abnormality, although assessment is limited by extensive metallic artifact produced by a left-sided implanted device. Jessi Corley PA-C CT ORDERABLES F inal Result * XR CHEST PA AND LATERAL 2 VW (11/07/2024 12:30 PM CDT) Anatomical Region Laterality Modality Chest Computed Radiogr aphy 11/07/2024 12:3 0 PM CDT Impressions 11/07/2024 1:37 PM CDT IMPRESSION: Please see below. Exam: XR CHEST PA AND LATERAL 2 VW Date/Time of Exam: 11/07/2024 12:30 PM Reason For Exam: Syncope. Diagnosis: See Reason for Exam. Comparison: March 26, 2021. FINDINGS: Cardiomediastinal silhouette is stable and interspinous. Right jugular portacatheter has been removed. Lungs are clear. Mild biapical fibrotic change. Surgical clips in the left supraclavicular region. Mild elevated right hemidiaphragm. No acute osseous finding. Post cholecystectomy. IMPRESSION: Nothing acute. Narrative Procedure Note Madhu Pringle, - 11/07/2024 IMPRESSION: Please see below. Exam: XR CHEST PA AND LATERAL 2 VW Date/Time of Exam: 11/07/2024 12:30 PM Reason For Exam: Syncope. Diagnosis: See Reason for Exam. Comparison: March 26, 2021. FINDINGS: Cardiomediastinal silhouette is stable and interspinous. Right jugular portacatheter has been removed. Lungs are clear. Mild biapical fibrotic change. Surgical clips in the left supraclavicular region. Mild elevated right hemidiaphragm. No acute osseous finding. Post cholecystectomy. IMPRESSION: Nothing acute. Jessi HERNANDEZ-C DIAGNOSTIC IMAGIN G ORDERABLES Final Result * XR HIP 2 OR 3 VIEWS RT (11/07/2024 12:30 PM CDT) Anatomical Region Laterality Modality Lower Extremity Right Computed Radiogr aphy 11/07/2024 12:3 0 PM CDT Impressions 11/07/2024 12:51 PM CDT IMPRESSION: Please see below. Exam: XR HIP 2 OR 3 VIEWS RT Date/Time of Exam: 11/07/2024 12:30 PM Reason For Exam: Fall. Diagnosis: See Reason for Exam. Comparison: None FINDINGS: Frontal and frog-leg lateral projections show no fracture or dislocation. Joint space grossly preserved. Mild trochanteric enthesopathy. Narrative Procedure Note Madhu Pringle, DO - 11/07/2024 IMPRESSION: Please see below. Exam: XR HIP 2 OR 3 VIEWS RT Date/Time of Exam: 11/07/2024 12:30 PM Reason For Exam: Fall. Diagnosis: See Reason for Exam. Comparison: None FINDINGS: Frontal and frog-leg lateral projections show no fracture or dislocation. Joint space grossly preserved. Mild trochanteric enthesopathy. Jessi HERNANDEZ-C DIAGNOSTIC IMAGIN G ORDERABLES Final Result * XR SACRUM AND COCCYX (11/07/2024 12:30 PM CDT) Anatomical Region Laterality Modality Pelvis Computed Radiogr aphy 11/07/2024 12:3 0 PM CDT Impressions 11/07/2024 1:01 PM CDT IMPRESSION: Please see below. Exam: XR SACRUM AND COCCYX Date/Time of Exam: 11/07/2024 12:30 PM Reason For Exam: Fall. Diagnosis: See Reason for Exam. Comparison: None FINDINGS: Frontal and lateral projections show no visible fracture or diastases. Joint spaces appear preserved. Coccygeal alignment appears normal. Narrative Procedure Note Madhu Pringle, DO - 11/07/2024 IMPRESSION: Please see below. Exam: XR SACRUM AND COCCYX Date/Time of Exam: 11/07/2024 12:30 PM Reason For Exam: Fall. Diagnosis: See Reason for Exam. Comparison: None FINDINGS: Frontal and lateral projections show no visible fracture or diastases. Joint spaces appear preserved. Coccygeal alignment appears normal. Jessi Corley PA-C DIAGNOSTIC IMAGIN G ORDERABLES Final Result * TSH REFLEXIVE (11/07/2024 12:00 PM CDT) TSH 0.83 0.27 - 4.20 uIU/mL 11/07/2024 1:04 PM CDT [facility] Blood Venipuncture / Unknown 11/07/2024 12:00 PM CDT 11/07/2024 12:06 PM CDT Jessi Corley PA-C CHEMISTRY ORDERAB LES Final Result [facility] CLIA # [id number] [address] [place] [address] * MAGNESIUM LEVEL (11/07/2024 12:00 PM CDT) MAGNESIUM 2.1 1.6 - 2.4 mg/dL 11/07/2024 1:34 PM CDT [facility] Blood Venipuncture / Unknown 11/07/2024 12:00 PM CDT 11/07/2024 12:06 PM CDT us Jessi Corley PA-C CHEMISTRY ORDERAB LES Final Result [facility] # [id number] [address] [place] [address] * MICROALBUMIN/CREATININE RATIO, RANDOM UR (08/27/2024 7:52 AM CDT) CREATININE, URINE 60 20 - 275 mg/dL [facility] ALBUMIN, URINE 0.9 See Note: mg/dL [facility] Comment: Reference Range: Reference Range Not established ALB/CREAT RATIO, URINE 15 <30 mg/g creat [facility] Comment: The ADA defines abnormalities in albumin excretion as follows: Albuminuria Category Result (mg/g creatinine) Normal to Mildly increased <30 Moderately increased 30-299 Severely increased > OR = 300 The ADA recommends that at least two of three specimens collected within a 3-6 month period be abnormal before considering a patient to be within a diagnostic category. Test Performed at: [facility] [address] [place] [address] Mikey Kelley MD Urine URINE SPECIMEN OBTAINED BY CLEAN CATCH PROCEDURE / Unknown 08/27/2024 7:52 AM CDT 08/28/2024 4:48 AM CDT us Christel Bernal CABLE COVERER URINE ORDERABLES Final Result Performing Organization Address City/[facility]/ZIP Co de Phone Number [facility] [phone] [facility] [address] [place] [address] * (ABNORMAL) HEMOGLOBIN A1C (08/27/2024 7:52 AM CDT) HEMOGLOBIN A1C 6.5(H) <5.7 % [facility] Comment: For someone without known diabetes, a hemoglobin A1c value of 6.5% or greater indicates that they may have diabetes and this should be confirmed with a follow-up test. For someone with known diabetes, a value <7% indicates that their diabetes is well controlled and a value greater than or equal to 7% indicates suboptimal control. A1c targets should be individualized based on duration of diabetes, age, comorbid conditions, and other considerations. Currently, no consensus exists regarding use of hemoglobin A1c for diagnosis of diabetes for children. ESTIMATED AVERAGE GLUCOSE (MG/DL) 140 mg/dL [facility] ESTIMATED AVERAGE GLUCOSE (MMOL/L) 7.7 mmol/L [facility] Comment: Test Performed at: [facility] [address] [place] [address] Mikey Kelley MD Blood 08/27/2024 7:52 AM CDT 08/28/2024 4:47 AM CDT us Christel LIZ CHEMISTRY ORDERABLES Final Resul t [facility] [phone] [facility] [address] [place] [address] * LIPID PANEL (08/27/2024 7:52 AM CDT) CHOLESTEROL 147 <200 mg/dL [facility] HDL 61 > OR = 50 mg/dL [facility] TRIGLYCERIDE 127 <150 mg/dL [facility] LDL CALCULATED 65 mg/dL (calc) [facility] Comment: Reference range: <100 Desirable range <100 mg/dL for primary prevention; <70 mg/dL for patients with CHD or diabetic patients with > or = 2 CHD risk factors. LDL-C is now calculated using the Mike-Josh calculation, which is a validated novel method providing better accuracy than the Friedewald equation in the estimation of LDL-C. Mike YOUNG et al. DIANA. 2013;310(19): 2738-3151 (http://education.Cequens/faq/STM043) CHOL/HDL RATIO 2.4 <5.0 (calc) [facility] NON-HDL CHOLESTEROL 86 <130 mg/dL (calc) [facility] Comment: For patients with diabetes plus 1 major ASCVD risk factor, treating to a non-HDL-C goal of <100 mg/dL (LDL-C of <70 mg/dL) is considered a therapeutic option. Test Performed at: [facility] [address] [address] Mikey Kelley MD Blood 08/27/2024 7:52 AM CDT 08/28/2024 4:48 AM CDT Christel Bernal [facility] CHEMISTRY ORDERABLES Final Resul t [facility] [phone] [facility] [address] [address] * COLONOSCOPY REPORT (05/31/2022 10:26 AM REQUIREMENTS MANAGER) Narrative Procedure Note Harish Bah DO - 05/31/2022 10:25 AM CST [facility] Patient Name: Maris Mcdermott Procedure Date: 05/31/2022 Date of : 1960 Admit Type: Inpatient Age: 61 Attending MD: Harish Bah MD, Procedure: Colonoscopy Indications: Hematochezia Providers: Harish Bah MD Referring MD: Medicines: Propofol per Anesthesia Complications: No immediate complications. Procedure: After I obtained informed consent, the scope was passed under direct vision. Throughout the procedure, the patient's blood pressure, pulse, and oxygen saturations were monitored continuously. The Colonoscope was introduced through the anus and advanced to the cecum, identified by appendiceal orifice and ileocecal valve. The colonoscopy was performed without difficulty. The patient tolerated the procedure well. The quality of the bowel preparation was adequate to identify polyps. Estimated Blood Loss: Estimated blood loss: none. Findings: The colon (entire examined portion) appeared normal. - Terminal ileum partially intubated appeared normal. Impression: - The entire examined colon is normal. - No specimens collected. Recommendation: - Patient has a contact number available for emergencies. The signs and symptoms of potential delayed complications were discussed with the patient. Return to normal activities tomorrow. Written discharge instructions were provided to the patient. - Resume previous diet. - Continue present medications. - Hematochezia likely anal fissure. Recommend adding fiber supplement and Miralax for her constipation. - We will sign off please call for questions. Thanks for the consult. Harish Bah MD 05/31/2022 10:25:05 AM Number of Addenda: 0 Note Initiated On: 05/31/2022 9:52 AM Scope Withdrawal Time 0 hours 10 minutes 44 seconds Scope In: 10:07:47 AM Scope Out: 10:22:38 AM [address] [place], [place] Harish Bah DO GI PROCEDURE ORDERABLES Final Result * DIABETES EYE EXAM (04/10/2022) us Abstract Provider HEALTH MAINTENANCE Final Resul t [facility] CLIA# [id number] [address] [place] [address] * MAMMO SCRN BILAT 3D MYLES W OR WO CAD (11/09/2021 9:37 AM CDT) Anatomical Region Laterality Modality Breast Bilateral Mammography 11/09/2021 9:39 AM CDT Impressions 11/10/2021 1:15 PM CDT Impression: No mammographic evidence of malignancy. In the absence of clinical findings, a screening mammogram should be obtained in one year. BI-RADS 1: Negative. Breast Density Category: C. Note: Patients with heterogeneously dense or extremely dense breast tissue ( density categories C and D ) with negative or benign screening mammograms ( BIRADS 1 and 2 ) may benefit from additional imaging techniques, including automated whole breast ultrasound ( ABUS ). ST Location 11 Narrative 11/10/2021 1:15 PM CDT Screening 3-D digital breast tomosynthesis and mammogram with CAD. History: Screening. Comparison: 01/21/2016, 02/13/2017, 02/14/2018, 04/28/2019 Findings: The breast tissue is heterogeneously dense, which could obscure detection of small masses. No suspicious masses, clustered microcalcifications, or suspicious architectural distortion. . Christel Bernal CABLE COVERER MAMMO ORDERABLES Final Result from Last 3 Months or Most Recently Relevant to Health Maintenance Insurance MEDICAID [place] [employer] Medicaid Advance Directives For more information, please contact: [phone] * Full Code (Latest Code Status on File) Date Activated Date Inactivated Comments 12/31/2024 9:29 AM 12/31/2024 2:05 PM * Full Code Date Activated Date Inactivated Comments 12/15/2024 8:54 AM 12/15/2024 3:42 PM * Full Code Date Activated Date Inactivated Comments 11/07/2024 2:45 PM 11/09/2024 5:06 PM * Full Code Date Activated Date Inactivated Comments 05/30/2022 2:56 PM 05/31/2022 8:24 PM * Full Code Date Activated Date Inactivated Comments 01/19/2022 2:05 PM 01/21/2022 8:29 PM Care Teams Loss Claim Clerk Relationship Specialty Start Date End Date Artur Chávez MD [address] [place] [id number] PCP - General Family Practice 08/19/24
[2025-01-26 16:44] VITALS: BP 129/86; PULSE 84; RESP 18; O2SAT 95
--- NOTE | 2025-01-26 16:50 | W.ED.BACK ---
HPI - Back Pain/Injury General: Chief Complaint: Back Pain/Injury Stated Complaint: pain when sitting Time Seen by Provider: 01/26/25 16:48 Source: patient and family Mode of arrival: ambulatory Limitations: no limitations History of Present Illness: Patient is a 64-year-old female presents to ED today with a complaint of tailbone pain following a fall 8 days ago. Patient states she fell backwards directly onto her tailbone and has had pain since. She states pain is worse with sitting and getting up from a seated position. She is ambulatory here. She is not complaining of numbness/tingling, loss of sensation or weakness to her legs. Urinary/bowel incontinence/retention. She is not complaining of lower back pain-just pain around her tailbone. MD elicited complaint: fall and other (tailbone pain) Pertinent past history: recent trauma (fall 8 days ago) Onset (ago): day(s) Timing: constant Severity: severe Pain scale (0-10): 9 Similar Symptoms Previously: No Location: sacrum (coccyx) Radiation: none Exacerbating factors: other (sitting) Relieving factors: none Associated symptoms: Reports no associated symptoms; Deny abdominal pain, difficulty walking or syncope Work related injury: No Related Data Home Medications ?Medication ?Instructions ?Recorded ?Confirmed albuterol sulfate 90 mcg/actuation 2 puff inhalation DIRECTED 05/05/19 08/12/24 aerosol inhaler (ProAir HFA) bismuth subsalicylate 262 mg/15 mL 524 mg PO Q1H PRN Stomach Upset 05/05/19 08/12/24 oral suspension (Pepto-Bismol) fluticasone propionate 50 1 spray intranasal DAILY 05/05/19 08/12/24 mcg/actuation nasal spray,suspension levothyroxine 50 mcg tablet 50 mcg PO DAILY 05/05/19 08/12/24 loperamide 2 mg capsule (Imodium 2 mg PO PRN PRN Diarrhea 05/05/19 08/12/24 A-D) acetaminophen 325 mg tablet 325 mg PO QID PRN Pain 07/08/19 08/12/24 (Tylenol) apixaban 5 mg tablet (Eliquis) 5 mg PO BID 07/08/19 08/12/24 pantoprazole 40 mg tablet,delayed 40 mg PO DAILY 07/08/19 08/12/24 release sumatriptan succinate 100 mg 100 mg PO Q2H PRN UNKNOWN 07/08/19 08/12/24 tablet (Imitrex) aspirin 81 mg tablet,delayed 81 mg PO DAILY 10/02/22 08/12/24 release (Adult Low Dose Aspirin) cholecalciferol (vitamin D3) 50 50 mcg PO DAILY 10/02/22 08/12/24 mcg (2,000 unit) capsule docusate sodium 100 mg capsule 200 mg PO BID PRN Constipation 10/02/22 08/12/24 (Colace) gabapentin 300 mg capsule 300 mg PO TID 10/02/22 08/12/24 loratadine 10 mg tablet 10 mg PO DAILY 10/02/22 08/12/24 melatonin 10 mg disintegrating 10 mg PO BEDTIME 10/02/22 08/12/24 tablet metformin 750 mg tablet,extended 750 mg PO BEDTIME 10/02/22 08/12/24 release 24 hr potassium chloride 10 mEq 40 meq PO TIDWMEAL 10/02/22 08/12/24 capsule,extended release rosuvastatin 40 mg tablet 40 mg PO BEDTIME 10/02/22 08/12/24 trazodone 150 mg tablet 300 mg PO BEDTIME 10/02/22 08/12/24 budesonide-formoterol HFA 160 1 puff inhalation BID 01/11/24 08/12/24 mcg-4.5 mcg/actuation aerosol inhaler (Symbicort) hydrochlorothiazide 25 mg tablet 25 mg PO DAILY 01/11/24 08/12/24 lisinopril 20 mg tablet 40 mg PO DAILY 01/11/24 08/12/24 mecobalamin (vitamin B12) 1,000 1,000 mcg PO DAILY 01/11/24 08/12/24 mcg chewable tablet insulin glargine 100 unit/mL (3 25 unit SUBCUT DAILY 05/26/24 08/12/24 mL) subcutaneous pen (Lantus Solostar U-100 Insulin) topiramate 100 mg tablet 100 mg PO BID 05/26/24 08/12/24 amlodipine 5 mg tablet 5 mg PO DAILY 07/09/24 08/12/24 Previous Rx's ?Medication ?Instructions ?Recorded metoprolol tartrate 50 mg tablet 50 mg PO BID 30 days #30 tabs 10/15/19 duloxetine 60 mg capsule,delayed 120 mg (2 x 60 mg) PO DAILY #60 02/09/21 release caps quetiapine 100 mg tablet (Seroquel) 100 mg PO .HS #60 tabs 02/09/21 diabetic shoes with 3 inserts #1 ea 03/25/24 LEFT HINGED KNEE BRACE #1 ea 04/08/24 hydrocodone 5 mg-acetaminophen 325 1 tab PO Q6H PRN pain #25 tabs 05/27/24 mg tablet Allergies Allergy/AdvReac Type Severity Reaction Status Date / Time codeine Allergy ALGY-Rash Verified 08/12/24 09:28 diphenhydramine (From Allergy ADR-Irritab Verified 08/12/24 09:28 Benadryl) le pseudoephedrine (From Allergy ADR-Irritab Verified 08/12/24 09:28 Sudafed) le Sulfa (Sulfonamide Allergy ALGY-Rash Verified 08/12/24 09:28 Antibiotics) tuberculin, purified protein Allergy Unknown Verified 08/12/24 09:28 deriva Review of Systems Card: Denies: chest pain, palpitations, lightheadedness, syncope or pre-syncope GI: Denies: abdominal pain or hematochezia Musc: Reports: back pain (coccyx); Denies: neck pain Neuro: Denies: numbness in extremities, weakness in extremities, sensory changes or difficulty walking PFSH ED PFSH: Medical History 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 Peripheral neuropathy Anticoagulation adequate with anticoagulant therapy Status post placement of implantable loop recorder 2009 GERD (gastroesophageal reflux disease) CVA (cerebrovascular accident) Peripheral vascular disease Migraine She has tried beta-blockers antidepressant anticonvulsant NSAIDs and Botox Diabetes History of atrial fibrillation Hypothyroidism Hypertension Chronic migraine without aura, intractable, with status migrainosus Major depressive disorder, recurrent, moderate Surgical History H/O esophagogastroduodenoscopy H/O colonoscopy S/P Botox injection Family History Other CAD (coronary artery disease) Hypertension Social History (Reviewed 01/26/25 @ 17:08 by ROOSEVELT Saul Smoking and tobacco/nicotine status: never used tobacco/nicotine Alcohol intake: never Substance/Drug Use: never Household members: family Housing: House Physical Exam Const: COMMON NORMALS: no acute distress, average body habitus, patient oriented x3, no limitations, alert and well nourished GENERAL APPEARANCE: cooperative OTHER: baseline tremor HENMT: COMMON NORMALS: normocephalic and atraumatic HEAD & SCALP: normal to inspection, normocephalic and atraumatic GI: COMMON NORMALS: Soft to palpation, non-tender and no masses PALPATION: Yes Soft to palpation Back/Pelvis: COMMON NORMALS: thoracic and lumbar spine normal to inspection, no thoracic nor lumbar tenderness and straight leg raise negative bilaterally PELVIS: Yes buttocks normal SACROILIAC JOINTS: Yes SI joints normal SACRUM: tenderness COCCYX: Coccyx tenderness present Extremity: GENERAL: Yes normal exam except as noted Neuro: COMMON NORMALS: patient oriented x3, moves all extremities, no focal motor deficits, no sensory deficits noted and gait normal SENSORIUM/ORIENTATION: Yes alert Skin: NARRATIVE SKIN EXAM: no sacral/buttock ecchymosis TRAUMA: no lacerations or abrasions Course Vital Signs: Vital signs: Vital Signs Pulse Rate 84 01/26/25 16:44 Respiratory Rate 18 01/26/25 16:44 Blood Pressure 129/86 01/26/25 16:44 Pulse Oximetry 95 01/26/25 16:44 Oxygen Delivery Me thod Room Air 01/26/25 16:44 MDM - Back Pain/Injury Medical Decision Making I do not visualize any obvious sacral/coccygeal fractures on her XRs today. These were reviewed with Dr. Rodriguez. Told her we will reach out to her with any radiology discrepancies. Discussed conservative therapy including cushions/doughnuts to help alleviate pressure. Recommend primary care follow-up in 1 to 2 weeks for re-evaluation. Return ED precautions discussed. Medical Records I reviewed the patient's medical records. XR interpretation done by ED provider, pending radiology final review Discharge Plan Discharge Patient Disposition: Home Clinical Impression: Coccygeal contusion Qualifiers: Encounter type: initial encounter Qualified Code(s): S30.0XXA - Contusion of lower back and pelvis, initial encounter Condition: Stable Prescriptions: No Action pantoprazole 40 mg tablet,delayed release (DR/EC) 40 mg PO DAILY Eliquis 5 mg tablet 5 mg PO BID metformin 750 mg tablet extended release 24 hr 750 mg PO BEDTIME potassium chloride 10 mEq capsule, extended release 40 meq PO TIDWMEAL gabapentin 300 mg capsule 300 mg PO TID cholecalciferol (vitamin D3) 50 mcg (2,000 unit) capsule 50 mcg PO DAILY aspirin [Adult Low Dose Aspirin] 81 mg tablet,delayed release (DR/EC) 81 mg PO DAILY trazodone 150 mg tablet 300 mg PO BEDTIME rosuvastatin 40 mg tablet 40 mg PO BEDTIME loratadine 10 mg tablet 10 mg PO DAILY melatonin 10 mg tablet,disintegrating 10 mg PO BEDTIME lisinopril 20 mg tablet 40 mg PO DAILY (DME) LEFT HINGED KNEE BRACE See Rx Instructions .Route .MEDSUPPLY Qty: 1 0RF Rx Instructions: As directed hydrochlorothiazide 25 mg tablet 25 mg PO DAILY mecobalamin (vitamin B12) 1,000 mcg tablet,chewable 1,000 mcg PO DAILY budesonide-formoterol [Symbicort] 160-4.5 mcg/actuation HFA aerosol inhaler 1 puff inhalation BID amlodipine 5 mg tablet 5 mg PO DAILY (DME) diabetic shoes with 3 inserts See Rx Instructions .Route .MEDSUPPLY Qty: 1 0RF Rx Instructions: As directed to the shoe lexus quetiapine [Seroquel] 100 mg tablet 100 mg PO .HS Qty: 60 3RF duloxetine 60 mg capsule,delayed release(DR/EC) 120 mg PO DAILY Qty: 60 3RF Rx Instructions: Take two capsules daily loperamide [Imodium A-D] 2 mg Capsule 2 mg PO PRN PRN (Reason: Diarrhea) levothyroxine 50 mcg Tablet 50 mcg PO DAILY bismuth subsalicylate [Pepto-Bismol] 262 mg/15 mL Suspension 524 mg PO Q1H PRN (Reason: Stomach Upset) albuterol sulfate [ProAir HFA] 90 mcg/actuation Hfa Aerosol Inhaler 2 puff inhalation DIRECTED Rx Instructions: inhaled USE DIRECTED fluticasone propionate 50 mcg/actuation [place],Suspension 1 spray INTRANASAL DAILY Tylenol 325 mg tablet 325 mg PO QID PRN (Reason: Pain) Imitrex 100 mg tablet 100 mg PO Q2H PRN (Reason: UNKNOWN) docusate sodium [Colace] 100 mg capsule 200 mg PO BID PRN (Reason: Constipation) Rx Instructions: 2 in the am and 2 in the evening metoprolol tartrate 50 mg Tablet 50 mg PO BID 30 Days Qty: 30 0RF topiramate 100 mg tablet 100 mg PO BID Rx Instructions: TAKE 1 TABLET BY MOUTH TWO TIMES DAILY insulin glargine [Lantus Solostar U-100 Insulin] 100 unit/mL (3 mL) Insulin Pen 25 unit SUBCUT DAILY hydrocodone-acetaminophen 5-325 mg tablet 1 tab PO Q6H PRN (Reason: pain) Qty: 25 0RF Discharge Orders: Discharge ED (Routine); Ordered 01/26/25 Ordered By: Angle Mathis Referrals: uSsi Pratt MD [Primary Care Provider, Internal Medicine] Patient Instructions: Coccyx Injury (ED), Patient Portal & Birdie Instructions Activity Restrictions/Additional Instructions: As we discussed, I do not visualize any obvious fractures on your x-rays today. We discussed conservative therapies including soft pillow/donuts to help alleviate pressure. Please follow-up with primary care in 1 to 2 weeks if symptoms or not improving. You may return to the emergency department for worsening or uncontrollable pain, trouble ambulating, or any other concerns you may have. Hope you begin to feel better soon. Print Language: Citizen [place] Coding Level of Care Code ED Dental Laboratory Assistant for Carol Lyles
--- NOTE | 2025-01-26 16:54 | XRR_ITS ---
PROCEDURE INFORMATION: Exam: XR Sacrum and Coccyx, 2 or More Views Exam date and time: 01/26/2025 5:31 PM Age: 64 years old Clinical indication: Injury or trauma; Fall; Blunt trauma (contusions or hematomas); Additional info: Fall/pain TECHNIQUE: Imaging protocol: XR of the sacrum and coccyx, 2 or more views. COMPARISON: CT chest abdpel w/*[id number] 01/18/2024 3:03 PM FINDINGS: Bones/joints: Mild degenerative changes of the lumbar vertebrae. Soft tissues: Normal. Vasculature: Pelvic phleboliths. XR/XR sacrum coccyx min 2V [id number] IMPRESSION: No definite acute fracture.
== END 2025-01-26 18:19 | disposition home or self-care (01) ==
PROVIDERS: Emergency Provider Physician Assistant; PCP Internal Medicine
DX: S30.0XXA Contusion of lower back and pelvis, initial encounter (principal); Z79.01 Long term (current) use of anticoagulants; Z79.84 Long term (current) use of oral hypoglycemic drugs; Z79.82 Long term (current) use of aspirin; Z79.4 Long term (current) use of insulin; E11.42 Type 2 diabetes mellitus with diabetic polyneuropathy; Z86.73 Personal history of transient ischemic attack (TIA), and cerebral infarction without residual deficits; I10 Essential (primary) hypertension; Z85.72 Personal history of non-Hodgkin lymphomas; W19.XXXA Unspecified fall, initial encounter
CPT/HCPCS: 72220; 99283